=== PATIENT | female | born 1955 | race Caucasian/White ===

== ENCOUNTER → 2019-09-12 | Outpatient (CLI) | payer SELFPAY | END | disposition home or self-care (01) | LOC: LABSPEC 16:08 | PROVIDERS: PCP Family Medicine; Referring Provider Family Medicine; Visit Provider Family Medicine | DX: N39.0 Urinary tract infection, site not specified (principal) | CPT/HCPCS: 87077; 87086; 87088; 87186 ==

== ENCOUNTER → 2021-08-12 | Outpatient (CLI) | payer MEDICARE, OTHER, SELFPAY ==
[2021-08-12 17:38] LABS: Absolute Lymphocyte Count 2.01 X10^3/uL (0.83-4.51); Absolute Neutrophil Count 2.8 X10^3/uL (2.0-7.7); Basophil# 0.06 X10^3/uL; Basophil% 1.1 % (0-1); Eosinophil# 0.05 X10^3/uL; Eosinophils% 0.9 % (0-5); Hematocrit 40.3 % (37-47); Hemoglobin 12.9 g/dL (12.0-15.0); Lymphocyte # 2.01 X10^3/ul (0.83-4.51); Lymphocyte % 36.6 % (19-41); Mean Corpuscular Hgb 29.5 pg (27.0-32.0); Mean Platelet Vol. 10.5 fl (6.2-12.0); Monocyte# 0.58 X10^3/uL; Monocyte% 10.6 % (0-10); NRBC Flagged by Analyzer 0 % (0-5); Neutrophil # 2.78 X10^3/uL (2.7-7.7); Neutrophil % 50.6 % (47-70); Platelet Count 323 K/mm3 (150-450); RBC Distribution Width CV 12.3 % (11.6-14.6); RBC Distribution Width SD 42.3 fl (35.1-43.9); Red Blood Count 4.38 M/mm3 (4.2-5.4); White Blood Count 5.5 K/mm3 (4.4-11.0)
[2021-08-12 18:02] LABS: AST(SGOT) 20 U/L (15-37); Alanine Aminotransfer ALT/SGPT 24 U/L (13-56); Albumin, Serum 4.3 g/dL (3.2-5.0); Alkaline Phosphatase 54 U/L (45-117); Bilirubin, Direct 0.25 mg/dL (0.00-0.30); Globulin 3.2 g/dL (2.2-4.2); Protein, Total 7.5 g/dL (6.4-8.2); Rheumatoid Factor < 10.0 IU/mL (<15); T4 Free Direct 1.12 ng/dL (0.76-1.46); Thyroid Stim Hormone (TSH) 0.91 uIU/mL (0.358-3.74)
[2021-08-15 16:05] LABS: ANTINUCLEAR ANTIBODIES DIRECT Positive (Negative)
[2021-08-19 20:07] LABS: HLA B27 Negative (.)
[2021-08-22 13:07] LABS: Anti-Centromere B Ab <0.2 AI (0.0-0.9); Anti-Chromatin <0.2 AI (0.0-0.9); Anti-Jo <0.2 AI (0.0-0.9); Anti-Scleroderma-70 AB <0.2 AI (0.0-0.9); RNP Ab 6.5 AI (0.0-0.9); SJOGREN'S Anti-SS-A test < 0.2 AI (0.0-0.9); SJOGREN'S Anti-SS-B test < 0.2 AI (0.0-0.9); Smith Ab <0.2 AI (0.0-0.9)
[2021-08-22 15:25] LABS: Anti-dsDNA Ab <1 IU/mL (0-9)
== END | disposition home or self-care (01) ==
PROVIDERS: PCP Family Medicine; Referring Provider Family Medicine; Visit Provider Registered Nurse
DX: R79.82 Elevated C-reactive protein (CRP) (principal)
CPT/HCPCS: 36415; 80076; 81374; 84439; 84443; 85025; 86038; 86225; 86235; 86431

== ENCOUNTER → 2022-11-17 | Outpatient (CLI) | payer MEDICARE, OTHER, SELFPAY | END | disposition home or self-care (01) | LOC: LABSPEC 10:41 | PROVIDERS: PCP Family Medicine; Referring Provider Family Medicine; Visit Provider Family Medicine | DX: N39.0 Urinary tract infection, site not specified (principal) | CPT/HCPCS: 87086; 87088 ==

== ENCOUNTER → 2022-12-06 | Outpatient (CLI) | payer MEDICARE, OTHER, SELFPAY ==
--- NOTE | 2022-12-06 10:00 | RAD_ITS ---
STUDY: X-RAY - RIGHT FOOT CLINICAL: Female, 67 years old. Bilateral foot pain. TECHNIQUE: 3 view(s) of the foot. COMPARISON: None. FINDINGS: Osteopenia. Mild arthrosis of the tibiotalar joint. Mild arthrosis of the midfoot. Mild arthrosis of the TMT joints. Moderate arthrosis of the first TMT joint with osteophytes and bunion. Mild arthrosis of the IP joint of the first digit and the MTP and IP joints of the second through fifth digits with hammertoe deformities Normal soft tissues. RAD/Foot min 3 Views IMPRESSION: Osteopenia with osteoarthritic changes as described. No acute abnormality or erosive changes. Electronically Signed: Eugenio Arellano MD at 14:12 EDT ,
--- NOTE | 2022-12-06 10:05 | RAD_ITS ---
STUDY: X-RAY - LEFT FOOT CLINICAL: Female, 67 years old. Bilateral foot pain. TECHNIQUE: 3 view(s) of the foot. COMPARISON: None. FINDINGS: Osteopenia. Mild arthrosis of the tibiotalar joint. Mild arthrosis of the midfoot. Mild arthrosis of the TMT joints. Moderate arthrosis of the first TMT joint with osteophytes and bunion. Mild arthrosis of the IP joint of the first digit and the MTP and IP joints of the second through fifth digits with hammertoe deformities Normal soft tissues. RAD/Foot min 3 Views IMPRESSION: Osteopenia with osteoarthritic changes as described. No acute abnormality or erosive changes. Electronically Signed: Eugenio Arellano MD at 14:12 EDT ,
== END | disposition home or self-care (01) ==
PROVIDERS: PCP Family Medicine; Referring Provider Internal Medicine Rheumatology; Visit Provider Internal Medicine Rheumatology
DX: M79.671 Pain in right foot (principal); M79.672 Pain in left foot
CPT/HCPCS: 73630

== ENCOUNTER → 2023-08-24 | Outpatient (CLI) | payer MEDICARE, OTHER, SELFPAY ==
[2023-08-24 10:31] LABS: Absolute Lymphocyte Count 1.99 X10^3/uL (0.83-4.51); Absolute Neutrophil Count 2.2 X10^3/uL (2.0-7.7); Basophil# 0.05 X10^3/uL; Eosinophil# 0.16 X10^3/uL; Eosinophils% 3.2 % (0-5); Hematocrit 38.4 % (37-47); Hemoglobin 12.2 g/dL (12.0-15.0); Lymphocyte # 1.99 X10^3/ul (0.83-4.51); Lymphocyte % 40.1 % (19-41); Mean Corp Hgb Conc 31.8 g/dL (32-36); Mean Corpuscular Hgb 29.3 pg (27.0-32.0); Mean Corpuscular Volume 92.1 fL (81-99); Mean Platelet Vol. 9.9 fl (6.2-12.0); Monocyte# 0.53 X10^3/uL; Monocyte% 10.7 % (0-10); NRBC Flagged by Analyzer 0 % (0-5); Neutrophil # 2.23 X10^3/uL (2.7-7.7); Platelet Count 330 K/mm3 (150-450); RBC Distribution Width CV 12.4 % (11.6-14.6); Red Blood Count 4.17 M/mm3 (4.2-5.4)
[2023-08-24 11:26] LABS: ALB/GLOB Ratio 1.2 RATIO (0.9-2.4); AST(SGOT) 36 U/L (15-37); Alanine Aminotransfer ALT/SGPT 39 U/L (13-56); Albumin, Serum 3.8 g/dL (3.2-5.0); Alkaline Phosphatase 47 U/L (45-117); Anion Gap 3 (5-15); BUN 8 mg/dL (7-18); BUN/Creat Ratio 13.5 RATIO (10-20); Chloride 107 mmol/L (98-107); Creatinine, Serum 0.59 mg/dL (0.55-1.02); EST Glomerular Filtration Rate 108 mL/min (>60); Est Glom Filt Rate - Afr Amer 130 mL/min (>60); Globulin 3.1 g/dL (2.2-4.2); Glucose 97 mg/dL (74-106); Potassium 4.1 mmol/L (3.5-5.1); Protein, Total 6.9 g/dL (6.4-8.2); Sodium Level 140 mmol/L (136-145)
== END | disposition home or self-care (01) ==
LOC: MFPLAB 09:25
PROVIDERS: PCP Family Medicine; Visit Provider Family Medicine
DX: M19.049 Primary osteoarthritis, unspecified hand (principal); E78.5 Hyperlipidemia, unspecified
CPT/HCPCS: 36415; 80053; 84443; 85025

== ENCOUNTER → 2023-10-10 | Outpatient (CLI) | payer MEDICARE, OTHER, SELFPAY ==
--- NOTE | 2023-10-10 09:09 | BI_ITS ---
MAMMOGRAPHY - BILATERAL SCREENING REASON FOR EXAM: Female, 68 years old. Routine annual screening examination. PERTINENT HISTORY: Non-contributory. History of remote right breast needle biopsy. TECHNIQUE: Digital bilateral breast juan antonio (3D mammographic acquisition) in the CC and MLO projections. 2-D mediolateral oblique (MLO) and craniocaudad (CC) views of both breasts were obtained. CAD: Full Field Digital Mammography with Computer Added Detection was performed. COMPARISON: No comparison mammograms available at this time. If any prior films become available, an addendum to this report can be generated. FINDINGS: Breast Composition: The breasts are heterogeneously dense, which may obscure small masses. There is a 8.4 mm x 8.5 mm well-defined nodule in the deep upper lateral aspect of the right breast. A tissue clip marker is seen adjacent to the nodule. This most likely represents a small lymph node. No other significant abnormalities are identified. BI/SCRN MAMM (CAD)W/JUAN ANTONIO BILAT IMPRESSION: 8.5 mm x 8.4 mm well-defined nodule in the deep upper outer aspect of the right breast. A tissue clip marker is seen adjacent to it. ASSESSMENT CATEGORY: BIRADS Category 2: Benign. A letter regarding these results will be sent to the patient by the facility within 30 days. Approximately 10% of breast cancers are not detected by mammography. A normal mammogram should not delay biopsy of a clinically suspicious abnormality. [id number] Electronically Signed: Brock Hollingsworth MD at 11:33 EDT ,
--- NOTE | 2023-10-10 09:14 | BD_ITS ---
STUDY: DUAL ENERGY X-RAY ABSORPTIOMETRY / DXA REASON FOR EXAM: Female, 68 years old. [id number] TECHNIQUE: Bone Mineral Density (BMD) measurements of lumbar spine and bilateral hips were obtained. COMPARISON: None. FINDINGS: Lumbar Spine (L1-L4): g/cm2 (0.824) / T-score (-2.0) / Z-score (-0.1) Findings are suggestive of osteopenia with a moderate fracture risk. Left Femur Total: g/cm2 (0.765) / T-score (-1.4) / Z-score (-0.1) Left Femoral Neck: g/cm2 (0.580) / T-score (-2.4) / Z-score (-0.7) Right Femur Total: g/cm2 (0.767) / T-score (-1.4) / Z-score (0.0) Right Femoral Neck: g/cm2 (0.609) / T-score (-2.2) / Z-score (-0.5) BD/Dexa Bone Density Study IMPRESSION: The patient is considered osteopenic as outlined below according to World [employer] Organization (WHO) criteria with a high fracture risk. Reference Information: The T-score is the number of standard deviations above or below the standard which is normal for young adults at their peak bone mineral density. The World Health Organization (WHO) interprets the T-scores as follows: Above -1 Normal bone density Between -1 and -2.5 Osteopenia Equal to / or below -2.5 Osteoporosis As a practical clinical guideline, osteopenia may be graded as follows: Mild -1 through -1.5 Moderate -1.6 through -2.0 Severe -2.1 through -2.4 The Z-score is the number of standard deviations above or below age-matched controls. A Z-score of less than -1.5 would be considered abnormal. References: 1. NIH Osteoporosis and Related Bone Diseases www osteo.org 2. International Society for Clinical Densitometry www iscd.org 3. National Osteoporosis Foundation www nof.org Electronically Signed: Brock Hollingsworth MD at 9:30 EDT ,
== END | disposition home or self-care (01) ==
LOC: OPBD 09:07
PROVIDERS: PCP Family Medicine; Referring Provider Family Medicine; Visit Provider Family Medicine
DX: Z12.31 Encounter for screening mammogram for malignant neoplasm of breast (principal); N95.9 Unspecified menopausal and perimenopausal disorder
CPT/HCPCS: 77063; 77067; 77080

== ENCOUNTER → 2023-12-07 | Outpatient (CLI) | payer MEDICARE, OTHER, SELFPAY ==
[2023-12-12 15:09] LABS: HPV APTIMA, High Risk Negative (Negative)
[2023-12-12 15:52] LABS: HPV Reflexed? YES, CHARGE PATIENT
== END | disposition home or self-care (01) ==
PROVIDERS: PCP Family Medicine; Referring Provider Registered Nurse; Visit Provider Registered Nurse
DX: Z01.419 Encounter for gynecological examination (general) (routine) without abnormal findings (principal)
CPT/HCPCS: 87624; 88175; G0145

== ENCOUNTER → 2024-03-20 | Outpatient (CLI) | payer MEDICARE, OTHER, SELFPAY ==
[2024-03-20 12:06] LABS: Absolute Lymphocyte Count 1.89 X10^3/uL (0.83-4.51); Absolute Neutrophil Count 2.2 X10^3/uL (2.0-7.7); Basophil# 0.07 X10^3/uL; Basophil% 1.4 % (0-1); Eosinophil# 0.11 X10^3/uL; Eosinophils% 2.2 % (0-5); Hematocrit 38.4 % (37-47); Hemoglobin 12.7 g/dL (12.0-15.0); Lymphocyte # 1.89 X10^3/ul (0.83-4.51); Lymphocyte % 38.6 % (19-41); Mean Corp Hgb Conc 33.1 g/dL (32-36); Mean Corpuscular Hgb 30.2 pg (27.0-32.0); Mean Corpuscular Volume 91.2 fL (81-99); Monocyte% 12.2 % (0-10); NRBC Flagged by Analyzer 0 % (0-5); Neutrophil # 2.22 X10^3/uL (2.7-7.7); Neutrophil % 45.4 % (47-70); Platelet Count 320 K/mm3 (150-450); RBC Distribution Width CV 12.5 % (11.6-14.6); RBC Distribution Width SD 41.6 fl (35.1-43.9); Red Blood Count 4.21 M/mm3 (4.2-5.4); White Blood Count 4.9 K/mm3 (4.4-11.0)
[2024-03-20 13:00] LABS: ALB/GLOB Ratio 1.3 RATIO (0.9-2.4); AST(SGOT) 27 U/L (15-37); Alanine Aminotransfer ALT/SGPT 35 U/L (13-56); Albumin, Serum 3.8 g/dL (3.2-5.0); Alkaline Phosphatase 45 U/L (45-117); Anion Gap 8 (5-15); BUN 11 mg/dL (7-18); BUN/Creat Ratio 18.4 RATIO (10-20); Calcium,Total 9.1 mg/dL (8.5-10.1); Chloride 107 mmol/L (98-107); EST Glomerular Filtration Rate 106 mL/min (>60); Est Glom Filt Rate - Afr Amer 128 mL/min (>60); Globulin 2.9 g/dL (2.2-4.2); Glucose 90 mg/dL (74-106); Potassium 3.7 mmol/L (3.5-5.1); Protein, Total 6.7 g/dL (6.4-8.2); Sodium Level 141 mmol/L (136-145)
[2024-03-21 15:09] LABS: PROEL- A/G Ratio 1.5 (0.7-1.7); PROEL- Alpha-1 Globulin 0.2 g/dL (0.0-0.4); PROEL- Alpha-2 Globulin 0.7 g/dL (0.4-1.0); PROEL- Gamma Globulin 0.8 g/dL (0.4-1.8); PROEL- Globulin, Total 2.6 g/dL (2.2-3.9); PROEL- TOTAL PROTEIN 6.6 g/dL (6.0-8.5); PROEL-M-Spike Not Observed g/dL (Not Observed)
== END | disposition home or self-care (01) ==
LOC: MFPLAB 10:05
PROVIDERS: PCP Family Medicine
DX: M81.0 Age-related osteoporosis without current pathological fracture (principal)
CPT/HCPCS: 36415; 80053; 84165; 84443; 85025

== ENCOUNTER → 2024-10-31 | Outpatient (CLI) | payer MEDICARE, OTHER, SELFPAY ==
[2024-10-31 15:20] LABS: Hematocrit 39.2 % (37-47); Hemoglobin 12.9 g/dL (12.0-15.0); Immature Granulocytes Count 0.010 X10^3/uL (0.0-0.0); Mean Corp Hgb Conc 32.9 g/dL (32-36); Mean Corpuscular Volume 89.5 fL (81-99); Mean Platelet Vol. 9.9 fl (6.2-12.0); NRBC Flagged by Analyzer 0 % (0-5); Platelet Count 346 K/mm3 (150-450); RBC Distribution Width CV 12.6 % (11.6-14.6); RBC Distribution Width SD 41.4 fl (35.1-43.9); Red Blood Count 4.38 M/mm3 (4.2-5.4); White Blood Count 4.5 K/mm3 (4.4-11.0)
--- OUTSIDE RECORDS SUMMARY | 2024-10-31 15:40 | XMS RPT_ITS | CCD ---
Author Organization [facility] CliniSynh Care Team Providers Care Production Team Leader Name Role Phone Granados, Kieran Primary Care Unavailable Darrick Hale Attending Unavailable Granados VSC, Kieran Referring Unavailable Granados, Kieran Primary Care Unavailable [place] CALL CENTER SUPERVISOR, Chas Attending Unavailable Milton ONEIL, Miley Attending Unavailable Miley Horne Referring Unavailable Granados, Kieran Primary Care Unavailable Granados, Kieran Referring Unavailable Granados, Kieran Primary Care Unavailable Granados, Kieran Attending Unavailable Granados, Kieran Attending Unavailable Granados, Kieran Primary Care Unavailable Granados, Kieran Primary Care Unavailable Granados, Kieran Referring Unavailable Granados, Kieran Attending Unavailable Problems Active Problems Problem Classification Problem Date Documented Da te Episodic/Chronic Disorders of lipid metabolism (1 source) Hyperlipidemia, unspecified; Translations: [Hyperlipidemia, unspecified] Onset: 07-23-2024 Chronic Glaucoma (2 sources) Unspecified glaucoma; Translations: [Unspecified glaucoma] Onset: 09-29-2022 Chronic Osteoarthritis (1 source) Primary osteoarthritis, unspecified hand; Translations: [Primary osteoarthritis, unspecified hand] Onset: 09-03-2023 Chronic Osteoporosis (2 sources) Age-related osteoporosis without current pathological fracture; Translations: [Age-related osteoporosis without current pathological fracture] Onset: 07-23-2024 Chronic Past or Other Problems Problem Classification Problem Date Documented Da te Episodic/Chronic Other screening for suspected conditions (not mental disorders or infectious disease) (1 source) Encounter for screening mammogram for malignant neoplasm of breast; Translations: [Encounter for screening mammogram for malignant neoplasm of breast] Onset: 10-22-2023 Episodic Results Test Name Value Interpretation Reference Range Facility Coronary Angiography CTon Coronary Angiography [facility] Imaging Services [address] [place] [address] 07/23/24 1647 MR#: [id number] Acct: [id number] Name: MANDY ADHIKARI Rep #: [id number] : 1955 68 From: Darrick Hale MD PCP: Dr. Kieran Granados MD Status:REG REF Y Location: CT Calcium Scoring Date of Study:: 07/23/24 Indications Indications: FH Coronary Calcium Scoring: High-resolution Computed Tomographic imaging of the chest was performed on [07/23/24 ], with particular attention paid to the coronary arteries. Images from the examination were analyzed for the presence and extent of coronary artery calcification , using coronary calcium quantification software. The patient tolerated the procedure well and there were no complications. The results of the coronary calcification analysis are provided below. Findings Coronary Artery Left Main (LM): 0 Left Anterior Descending (LAD): 0 Left Circumflex (LCX): 0 Right Coronary Artery (RCA): 0 Total Agatston Score: 0 Percentile Rankin Calcium Scoring Interpretation: Different methods to categorize the overall amount of coronary plaque. Overall amount CAC SIS Visual of coronary plaque P1 Mild -100 <2 1-2 vessels with mild amount of plaque P2 Moderate 101-300 3-4 1-2 vessels with moderate amount, 3 vessels with mild amount of plaque P3 Severe 301-999 5-7 3 vessels with moderate amount, 1 vessel with severe amount of plaque P4 Extensive >1000 >8 2-3 vessels with severe amount of plaque Conclusion: No atherosclerotic plaque noted 07/23/24 1648 Date Darrick Hale MD Cosigner Signature (if applicable): Date CC: Dr. Darrick Hale MD; Dr. Kieran Granados MD; Kieran Granados MD Signed Normal [facility] Limited Chest CT Cardiac Onl [facility] 07-23-[address] Cardiac Only [facility] Imaging Services [address] [place] [address] Cardiac Only MR#: [id number] Acct: [id number] Name: MANDY ADHIKARI Rep #: [id number] : 1955 F 68 From: Kieran Sanders MD PCP: Dr. Kieran Granados MD Status: REG REF Study: Limited Chest CT Cardiac Only Date of Exam: Exam# [id number] Ordering Dr: Kieran Granados MD PROCEDURE: LIMITED CHEST CT NON-CARDIAC ONLY REASON FOR EXAM: HYPERLIPIDEMIA TECHNIQUE: Chest CT without contrast, high resolution CT (HRCT) protocol. Coronal and Sagittal reconstruction series were provided. Only the extracardiac anatomy is evaluated on this study. One or more dose reduction techniques were used (e.g., Automated exposure control, adjustment of the mA and/or kV according to patient size, use of iterative reconstruction technique). COMPARISON: No relevant prior. FINDINGS: Lymph nodes: Unremarkable Lungs and Airways: No nodules or masses. Mediastinum and frank: No widening. No hilar adenopathy. Pleura: No effusions, thickening, or pneumothorax. Upper Abdomen: Unremarkable. Bones: Mild multilevel spondylosis. Soft tissues: Possible soft tissue nodule in the right breast, axial image 33 measuring 1.3 cm. Soft tissue nodule in the right breast, axial image 11 measuring 0.8 cm. Calcifications are also noted in the right breast. CT/Limited Chest CT Cardiac Only IMPRESSION: Nodules in the right breast as detailed above. Consider mammography for further evaluation. No other suspicious findings. Reading Location: [place] [address] CC: Dr. Kieran Granados MD Lace Burn Out Tender: Signed Normal [facility] Protein Electroph, Son 03-21 Albumin [Mass/Vol] 4.0 g/dL Normal 2.9-4.4 [facility] Comment on above: Order Comment: Order Date: 03/20/24 Order Info: 0060-1 - PROEL Performed By: #### L 3100.3450 #### [facility] [address] [place], [place], [address] Albumin/Globulin [Mass ratio] 1.5 {ratio} Normal 0.7-1.7 [facility] Comment on above: Order Comment: Order Date: 03/20/24 Order Info: 0060-1 - PROEL Performed By: #### L 3100.3450 #### [facility] [address] [place], [address] ALPHA-1 GLOBUL 0.2 g/dL Normal 0.0-0.4 [facility] Comment on above: Order Comment: Order Date: 03/20/24 Order Info: 0060-1 - PROEL Performed By: #### L 3100.3450 #### [facility] [address] [place], [address] ALPHA-2 GLOBUL 0.7 g/dL Normal 0.4-1.0 [facility] Comment on above: Order Comment: Order Date: 03/20/24 Order Info: 0060-1 - PROEL Performed By: #### L 3100.3450 #### [facility] [address] [place], [address] BETA GLOBULIN 1.0 g/dL Normal 0.7-1.3 [facility] Comment on above: Order Comment: Order Date: 03/20/24 Order Info: 0060-1 - PROEL Performed By: #### L 3100.3450 #### [facility] [address] [place], [address] GAMMA GLOBULIN 0.8 g/dL Normal 0.4-1.8 [facility] Comment on above: Order Comment: Order Date: 03/20/24 Order Info: 0060-1 - PROEL Performed By: #### L 3100.3450 #### [facility] [address] [place], [address] Globulin (S) [Mass/Vol] 2.6 g/dL Normal 2.2-3.9 [facility] Comment on above: Order Comment: Order Date: 03/20/24 Order Info: 0060-1 - PROEL Performed By: #### L 3100.3450 #### [facility] [address] [place], [place], [address] INTERPRETATION Comment Normal . [facility] Comment on above: Order Comment: Order Date: 03/20/24 Order Info: 0060-1 - PROEL Result Comment: Prot ein electrophoresis scan will follow via computer, mail, or sfdc technical architect delivery. Performed By: #### L 1610.3450 #### [facility] [address] [place], [place], [address] M-SPIKE Not Observed Normal Not Observed [facility] Comment on above: Order Comment: Order Date: 03/20/24 Order Info: 0060-1 - PROEL Performed By: #### L 5160.3450 #### [facility] [address] [place], [place], [address] NOTE: Comment Normal . [facility] Comment on above: Order Comment: Order Date: 03/20/24 Order Info: 0060-1 - PROEL Result Comment: The SPE pattern appears unremarkable. Evidence of monoclonal protein is not apparent. Performed at: [address] [id number] House Builder: Teddy Duong PhD, Phone: [phone] Performed By: #### L 1897.7977 #### [facility] [address] [place], [place], [address] Protein [Mass/Vol] 6.6 g/dL Normal 6.0-8.5 [facility] Comment on above: Order Comment: Order Date: 03/20/24 Order Info: 0060-1 - PROEL Performed By: #### L 4444.1240 #### [facility] [address] [place], [place], [address] CBC W/Diff, Automatedon 12-0 -2023 Absolute Lymph 1.89 X10 3/uL Normal 0.83-4.51 [facility] Comment on above: Order Comment: Order Date: 03/20/24 Order Info: 0184-1 - CBCD Performed By: #### L 100.0100 #### [facility] [address] [place], [address] Absolute Neut 2.2 X10 3/uL Normal 2.0-7.7 [facility] Comment on above: Order Comment: Order Date: 03/20/24 Order Info: 0184-1 - CBCD Performed By: #### L 100.0100 #### [facility] [address] [place], [address] Basophils/100 WBC (Bld) 1.4 % High 0-1 [facility] Comment on above: Order Comment: Order Date: 03/20/24 Order Info: 0184-1 - CBCD Performed By: #### L 100.0100 #### [facility] [address] [place], [address] Eosinophils/100 WBC (Bld) 2.2 % Normal 0-5 [facility] Comment on above: Order Comment: Order Date: 03/20/24 Order Info: 0184-1 - CBCD Performed By: #### L 100.0100 #### [facility] [address] [place], [address] Erythrocyte distribution width (RBC) [Ratio] 12.5 % Normal 11.6-14.6 [facility] Comment on above: Order Comment: Order Date: 03/20/24 Order Info: 0184-1 - CBCD Performed By: #### L 100.0100 #### [facility] [address] [place], [address] Hematocrit (Bld) [Volume fraction] 38.4 % Normal 37-47 [facility] Comment on above: Order Comment: Order Date: 03/20/24 Order Info: 0184-1 - CBCD Performed By: #### L 100.0100 #### [facility] [address] [place], [address] Hemoglobin (Bld) [Mass/Vol] 12.7 g/dL Normal 12.0-15.0 [facility] Comment on above: Order Comment: Order Date: 03/20/24 Order Info: 0184-1 - CBCD Performed By: #### L 100.0100 #### [facility] [address] [place], [address] IG% 0.200 Normal 0.0-0.9 [facility] Comment on above: Order Comment: Order Date: 03/20/24 Order Info: 0184- - CBCD Result Comment: IG% - Immature Granulocytes (promyelocytes, myelocytes and metamyelocytes) > 1% indicates that a LEFT SHIFT is Present. Performed By: #### L 100.0100 #### [facility] [address] [place], [address] Lymphocytes/100 WBC (Bld) 38.6 % Normal 19-41 [facility] Comment on above: Order Comment: Order Date: 03/20/24 Order Info: 0184- - CBCD Performed By: #### L 100.0100 #### [facility] [address] [place], [address] MCH (RBC) [Entitic mass] 30.2 pg Normal 27.0-32.0 [facility] Comment on above: Order Comment: Order Date: 03/20/24 Order Info: 0184- - CBCD Performed By: #### L 100.0100 #### [facility] [address] [place], [address] MCHC (RBC) [Mass/Vol] 33.1 g/dL Normal 32-36 [facility] Comment on above: Order Comment: Order Date: 03/20/24 Order Info: 0184-1 - CBCD Performed By: #### L 100.0100 #### [facility] [address] [place], [address] MCV (RBC) [Entitic vol] 91.2 fL Normal 81-99 [facility] Comment on above: Order Comment: Order Date: 03/20/24 Order Info: 0184-1 - CBCD Performed By: #### L 100.0100 #### [facility] [address] [place], [address] Monocytes/100 WBC (Bld) 12.2 % High 0-10 [facility] Comment on above: Order Comment: Order Date: 03/20/24 Order Info: 0184-1 - CBCD Performed By: #### L 100.0100 #### [facility] [address] [place], [address] Neutrophils/100 WBC (Bld) 45.4 % Low 47-70 [facility] Comment on above: Order Comment: Order Date: 03/20/24 Order Info: 0184-1 - CBCD Performed By: #### L 100.0100 #### [facility] [address] [place], [address] Nucleated RBC (Bld) [#/Vol] 0 10*3/uL Normal 0-5 [facility] Comment on above: Order Comment: Order Date: 03/20/24 Order Info: 0184-1 - CBCD Performed By: #### L 100.0100 #### [facility] [address] [place], [address] Platelet mean volume (Bld) [Entitic vol] 10.0 fL Normal 6.2-12.0 [facility] Comment on above: Order Comment: Order Date: 03/20/24 Order Info: 0184-1 - CBCD Performed By: #### L 100.0100 #### [facility] [address] [place], [address] Platelets (Bld) [#/Vol] 320 10*3/uL Normal 150-450 [facility] Comment on above: Order Comment: Order Date: 03/20/24 Order Info: 0184-1 - CBCD Performed By: #### L 100.0100 #### [facility] [address] [place], [address] RBC (Bld) [#/Vol] 4.21 10*6/uL Normal 4.2-5.4 [facility] Comment on above: Order Comment: Order Date: 03/20/24 Order Info: 0184- - CBCD Performed By: #### L 100.0100 #### [facility] [address] [place], [address] RDW SD 41.6 fl Normal 35.1-43.9 [facility] Comment on above: Order Comment: Order Date: 03/20/24 Order Info: 018- - CBCD Performed By: #### L 100.0100 #### [facility] [address] [place], [address] WBC (Bld) [#/Vol] 4.9 10*3/uL Normal 4.4-11.0 [facility] Comment on above: Order Comment: Order Date: 03/20/24 Order Info: 0184 - CBCD Performed By: #### L 100.0100 #### [facility] [address] [place], [address] Comprehensive Metabolic Prof ilon 03-20-2024 Albumin [Mass/Vol] 3.8 g/dL Normal 3.2-5.0 [facility] Comment on above: Order Comment: Order Date: 03/20/24 Order Info: 0786-1 - CMP Order Info: 3016-3 - TSH Performed By: #### L 500.4050 #### [facility] [address] [place], [address] Albumin/Globulin [Mass ratio] 1.3 {ratio} Normal 0.9-2.4 [facility] Comment on above: Order Comment: Order Date: 03/20/24 Order Info: 0786-1 - CMP Order Info: 3016-3 - TSH Performed By: #### L 500.4050 #### [facility] [address] [place], [address] ALK P 45 U/L Normal 45-117 [facility] Comment on above: Order Comment: Order Date: 03/20/24 Order Info: 0786-1 - CMP Order Info: 3015-3 - TSH Performed By: #### L 500.4050 #### [facility] [address] [place], [address] ALT [Catalytic activity/Vol] 35 U/L Normal 13-56 [facility] Comment on above: Order Comment: Order Date: 03/20/24 Order Info: 0786-1 - CMP Order Info: 3015-3 - TSH Performed By: #### L 500.4050 #### [facility] [address] [place], [address] AST [Catalytic activity/Vol] 27 U/L Normal 15-37 [facility] Comment on above: Order Comment: Order Date: 03/20/24 Order Info: 07-1 - CMP Order Info: 3015-3 - TSH Performed By: #### L 500.4050 #### [facility] [address] [place], [address] Bilirubin [Mass/Vol] 1.70 mg/dL High 0.20-1.00 [facility] Comment on above: Order Comment: Order Date: 03/20/24 Order Info: 0786-1 - CMP Order Info: 301-3 - TSH Result Comment: For patients on eltrombopag therapy, use of Dimension Dolliver TBIL is not recommended. Performed By: #### L 500.4050 #### [facility] [address] [place], [address] BUN/CRE 18.4 RATIO Normal 10-20 [facility] Comment on above: Order Comment: Order Date: 03/20/24 Order Info: 0786-1 - CMP Order Info: 3016-3 - TSH Performed By: #### L 500.4050 #### [facility] [address] [place], [address] CA,Total 9.1 mg/dL Normal 8.5-10.1 [facility] Comment on above: Order Comment: Order Date: 03/20/24 Order Info: 0786- - CMP Order Info: 3015-06 - TSH Performed By: #### L 500.4050 #### [facility] [address] [place], [place], [address] [phone] Chloride [Moles/Vol] 107 mmol/L Normal 98-107 [facility] Comment on above: Order Comment: Order Date: 03/20/24 Order Info: 785-1 - CMP Order Info: 3015-06 - TSH Performed By: #### L 500.4050 #### [facility] [address] [place], [address] CO2 [Moles/Vol] 26.0 mmol/L Normal 21.0-32.0 [facility] Comment on above: Order Comment: Order Date: 03/20/24 Order Info: 785- - [facility] Order Info: 3015-06 - TSH Performed By: #### L 500.4050 #### [facility] [address] [place], [address] Creatinine [Mass/Vol] 0.60 mg/dL Normal 0.55-1.02 [facility] Comment on above: Order Comment: Order Date: 03/20/24 Order Info: 07- - CMP Order Info: 3015-06 - TSH Result Comment: The validity of the calculated GFR GFRAA in patients over 70 years has not been determined. Clinical correlation is essential. Performed By: #### L 500.4050 #### [facility] [address] [place], [address] EST GFR - AA 128 mL/min Normal >60 [facility] Comment on above: Order Comment: Order Date: 03/20/24 Order Info: 0786-1 - CMP Order Info: 3 - TSH Result Comment: Afri can Swiss GFR Calc Performed By: #### L 500.4050 #### [facility] [address] [place], [address] GAP 8 Normal 5-15 [facility] Comment on above: Order Comment: Order Date: 03/20/24 Order Info: 0786- - CMP Order Info: 3 - TSH Performed By: #### L 500.4050 #### [facility] [address] [place], [address] GFR/1.73 sq M.predicted among non-blacks MDRD (S/P/Bld) [Vol rate/Area] 106 mL/min/{1.73_m2} Normal >60 [facility] Comment on above: Order Comment: Order Date: 03/20/24 Order Info: 0786 - CMP Order Info: 3 - TSH Result Comment: Non- GFR Calc Performed By: #### L 500.4050 #### [facility] [address] [place], [address] Globulin (S) [Mass/Vol] 2.9 g/dL Normal 2.2-4.2 [facility] Comment on above: Order Comment: Order Date: 03/20/24 Order Info: 0786 - CMP Order Info: 3015-06 - TSH Performed By: #### L 500.4050 #### [facility] [address] [place], [address] Glucose [Mass/Vol] 90 mg/dL Normal 74-106 [facility] Comment on above: Order Comment: Order Date: 03/20/24 Order Info: 0786- - CMP Order Info: 3 - TSH Performed By: #### L 500.4050 #### [facility] [address] [place], [address] Potassium [Moles/Vol] 3.7 mmol/L Normal 3.5-5.1 [facility] Comment on above: Order Comment: Order Date: 03/20/24 Order Info: 0786-1 - CMP Order Info: 3015-3 - TSH Performed By: #### L 500.4050 #### [facility] [address] [place], [address] Sodium [Moles/Vol] 141 mmol/L Normal 136-145 [facility] Comment on above: Order Comment: Order Date: 03/20/24 Order Info: 0786-1 - [facility] Order Info: 3 - TSH Performed By: #### L 500.4050 #### [facility] [address] [place], [address] T PROT 6.7 g/dL Normal 6.4-8.2 [facility] Comment on above: Order Comment: Order Date: 03/20/24 Order Info: 0786- - [facility] Order Info: 3 - TSH Performed By: #### L 500.4050 #### [facility] [address] [place], [address] Urea nitrogen [Mass/Vol] 11 mg/dL Normal 7-18 [facility] Comment on above: Order Comment: Order Date: 03/20/24 Order Info: 0786 - [facility] Order Info: 3 - TSH Performed By: #### L 500.4050 #### [facility] [address] [place], [address] Thyroid Stim Hormone (TSH)on 03-20-2024 TSH 1.010 uIU/mL Normal 0.358-3.740 [facility] Comment on above: Order Comment: Order Date: 03/20/24 Order Info: 0786-1 - CMP Order Info: 3015-3 - TSH Performed By: #### L 501.9520 #### [facility] [address] [place], [address] PAP IG HPV HR APTIMAon 12-11 ADEQ Comment Normal . [facility] Comment on above: Order Comment: Speci men Comment: [id number] Specimen Comment: Source.............Vagina Specimen Comment: No. of containers..01 ThinPrep Vial Result Comment: Sati sfactory for evaluation. Endocervical component may not be distinguished in cases of atrophy. Performed By: #### L 7400.0377 #### [facility] [address] [place], [place], [address] COMM . Normal . [facility] Comment on above: Order Comment: Speci men Comment: [id number] Specimen Comment: Source.............Vagina Specimen Comment: No. of containers..01 ThinPrep Vial Performed By: #### L 7400.0377 #### [facility] [address] [place], [place], [address] COMMENT Comment Normal . [facility] Comment on above: Order Comment: Speci men Comment: [id number] Specimen Comment: Source.............Vagina Specimen Comment: No. of containers..01 ThinPrep Vial Result Comment: This liquid based ThinPrep(R) pap test was screened with the use of an image guided system. Performed By: #### L 7400.0377 #### [facility] [address] [place], [place], [address] DIAG Comment Normal . [facility] Comment on above: Order Comment: Speci men Comment: [id number] Specimen Comment: Source.............Vagina Specimen Comment: No. of containers..01 ThinPrep Vial Result Comment: NEGA TIVE FOR INTRAEPITHELIAL LESION OR MALIGNANCY. CELLULAR CHANGES ASSOCIATED WITH ATROPHY ARE PRESENT. Performed By: #### L 7400.0377 #### [facility] [address] [place], [place], [address] HPV APTIMA, HR Negative Normal Negative [facility] Comment on above: Order Comment: Speci men Comment: [id number] Specimen Comment: Source.............Vagina Specimen Comment: No. of containers..01 ThinPrep Vial Result Comment: This nucleic acid amplification test detects fourteen high- risk HPV types (16,18,31,33,35,39,45,51,52,56,58,59,66,68) without differentiation. Performed at: [address] [id number] House Builder: Jannie Krueger MD, Phone: [phone] Performed at: =[address] [id number] House Builder: Jannie Krueger MD, Phone: [phone] Performed By: #### L 7400.0377 #### [facility] [address] [place], [place], [address] PAPSMR Comment Normal . [facility] Comment on above: Order Comment: Speci men Comment: [id number] Specimen Comment: Source.............Vagina Specimen Comment: No. of containers..01 ThinPrep Vial Result Comment: The Pap smear is a screening test designed to aid in the detection of premalignant and malignant conditions of the uterine cervix. It is not a diagnostic procedure and should not be used as the sole means of detecting cervical cancer. Both false-positive and false-negative reports do occur. Performed By: #### L 7400.0377 #### [facility] [address] [place], [place], [address] PERFORM Comment Normal . [facility] Comment on above: Order Comment: Speci men Comment: [id number] Specimen Comment: Source.............Vagina Specimen Comment: No. of containers..01 ThinPrep Vial Result Comment: Jennifer Barlow Planishing Hammer Operator (ASCP) Performed By: #### L 7400.0377 #### [facility] [address] [place], [place], [address] Dexa Bone Density Studyon Dexa Bone Density Study [facility] Imaging Services [address] [place] [address] Dexa Bone Density Study MR#: [id number] Acct: [id number] Name: MANDY ADHIKARI Rep #: [id number] : 1955 F 68 From: Brock winter MD PCP: Dr. Kieran Granados MD Status: [facility] Study: Dexa Bone Density Study Date of Exam: 10/10/23 Exam# [id number] Ordering Dr: Kieran Granados MD [id number] STUDY: DUAL ENERGY X-RAY ABSORPTIOMETRY / DXA REASON FOR EXAM: Female, 68 years old. [id number] TECHNIQUE: Bone Mineral Density (BMD) measurements of lumbar spine and bilateral hips were obtained. COMPARISON: None. FINDINGS: Lumbar Spine (L1-L4): g/cm2 (0.824) / T-score (-2.0) / Z-score (-0.1) Findings are suggestive of osteopenia with a moderate fracture risk. Left Femur Total: g/cm2 (0.765) / T-score (-1.4) / Z-score (-0.1) Left Femoral Neck: g/cm2 (0.580) / T-score (-2.4) / Z-score (-0.7) Right Femur Total: g/cm2 (0.767) / T-score (-1.4) / Z-score (0.0) Right Femoral Neck: g/cm2 (0.609) / T-score (-2.2) / Z-score (-0.5) BD/Dexa Bone Density Study IMPRESSION: The patient is considered osteopenic as outlined below according to World Plac[employer] Organization (WHO) criteria with a high fracture risk. Reference Information: The T-score is the number of standard deviations above or below the standard which is normal for young adults at their peak bone mineral density. The World Health Organization (WHO) interprets the T-scores as follows: Above -1 Normal bone density Between -1 and -2.5 Osteopenia Equal to / or below -2.5 Osteoporosis As a practical clinical guideline, osteopenia may be graded as follows: Mild -1 through -1.5 Moderate -1.6 through -2.0 Severe -2.1 through -2.4 The Z-score is the number of standard deviations above or below age-matched controls. A Z-score of less than -1.5 would be considered abnormal. References: 1. NIH Osteoporosis and Related Bone Diseases www osteo.org 2. International Society for Clinical Densitometry www iscd.org 3. National Osteoporosis Foundation www nof.org Electronically Signed: Brock Hollingsworth MD at 9:30 EDT Reading Location ID and State: [facility] / [place] , Service support , CC: Dr. Kieran Granados MD Lace Burn Out Tender: Signed Normal [facility] SCRN MAMM (CAD)W/JUAN ANTONIO BILATo n 10-10-2023 SCRN MAMM (CAD)W/JUAN ANTONIO BILAT [facility] Imaging Services [address] [place] [address] SCRN MAMM (CAD)W/JUAN ANTONIO BILAT MR#: [id number] Acct: [id number] Name: MANDY ADHIKARI Rep #: [id number] : [id number] F 68 From: Brock winter MD PCP: Dr. Kieran Granados MD Status: [facility] Study: SCRN MAMM (CAD)W/JUAN ANTONIO BILAT Date of Exam: 09/15 10/07 Exam# [id number] Ordering Dr: Kieran Granados MD [id number] MAMMOGRAPHY - BILATERAL SCREENING REASON FOR EXAM: Female, 68 years old. Routine annual screening examination. PERTINENT HISTORY: Non-contributory. History of remote right breast needle biopsy. TECHNIQUE: Digital bilateral breast juan antonio (3D mammographic acquisition) in the CC and MLO projections. 2-D mediolateral oblique (MLO) and craniocaudad (CC) views of both breasts were obtained. CAD: Full Field Digital Mammography with Computer Added Detection was performed. COMPARISON: No comparison mammograms available at this time. If any prior films become available, an addendum to this report can be generated. FINDINGS: Breast Composition: The breasts are heterogeneously dense, which may obscure small masses. There is a 8.4 mm x 8.5 mm well-defined nodule in the deep upper lateral aspect of the right breast. A tissue clip marker is seen adjacent to the nodule. This most likely represents a small lymph node. No other significant abnormalities are identified. BI/SCRN MAMM (CAD)W/JUAN ANTONIO BILAT IMPRESSION: 8.5 mm x 8.4 mm well-defined nodule in the deep upper outer aspect of the right breast. A tissue clip marker is seen adjacent to it. ASSESSMENT CATEGORY: BIRADS Category 2: Benign. A letter regarding these results will be sent to the patient by the facility within 30 days. Approximately 10% of breast cancers are not detected by mammography. A normal mammogram should not delay biopsy of a clinically suspicious abnormality. [id number] Electronically Signed: Brock Hollingsworth MD at 11:33 EDT , CC: Dr. Kieran Granados MD Lace Burn Out Tender: Signed Normal [facility] CBC W/Diff, Automatedon 08-14 Absolute Lymph 1.99 X10 3/uL Normal 0.83-4.51 [facility] Comment on above: Order Comment: Order Date: 08/24/23 Order Info: 0184-1 - CBCD Performed By: #### L 100.0100, L501.9520, L500.4050 #### [facility] [address] [place], [address] Absolute Neut 2.2 X10 3/uL Normal 2.0-7.7 [facility] Comment on above: Order Comment: Order Date: 08/24/23 Order Info: 0184-1 - CBCD Performed By: #### L 100.0100, L501.9520, L500.4050 #### [facility] [address] [place], [address] Basophils/100 WBC (Bld) 1.0 % Normal 0-1 [facility] Comment on above: Order Comment: Order Date: 08/24/23 Order Info: 0184-1 - CBCD Performed By: #### L 100.0100, L501.9520, L500.4050 #### [facility] [address] [place], [address] Eosinophils/100 WBC (Bld) 3.2 % Normal 0-5 [facility] Comment on above: Order Comment: Order Date: 08/24/23 Order Info: 0184-1 - CBCD Performed By: #### L 100.0100, L501.9520, L500.4050 #### [facility] [address] [place], [address] Erythrocyte distribution width (RBC) [Ratio] 12.4 % Normal 11.6-14.6 [facility] Comment on above: Order Comment: Order Date: 08/24/23 Order Info: 0184-1 - CBCD Performed By: #### L 100.0100, L501.9520, L500.4050 #### [facility] [address] [place], [address] Hematocrit (Bld) [Volume fraction] 38.4 % Normal 37-47 [facility] Comment on above: Order Comment: Order Date: 08/24/23 Order Info: 018- - CBCD Performed By: #### L 100.0100, L501.9520, L500.4050 #### [facility] [address] [place], [address] Hemoglobin (Bld) [Mass/Vol] 12.2 g/dL Normal 12.0-15.0 [facility] Comment on above: Order Comment: Order Date: 08/24/23 Order Info: 018- - CBCD Performed By: #### L 100.0100, L501.9520, L500.4050 #### [facility] [address] [place], [address] IG% 0.000 Normal 0.0-0.9 [facility] Comment on above: Order Comment: Order Date: 08/24/23 Order Info: 018- - CBCD Result Comment: IG% - Immature Granulocytes (promyelocytes, myelocytes and metamyelocytes) > 1% indicates that a LEFT SHIFT is Present. Performed By: #### L 100.0100, L501.9520, L500.4050 #### [facility] [address] [place], [address] Lymphocytes/100 WBC (Bld) 40.1 % Normal 19-41 [facility] Comment on above: Order Comment: Order Date: 08/24/23 Order Info: 0184- - CBCD Performed By: #### L 100.0100, L501.9520, L500.4050 #### [facility] [address] [place], [address] MCH (RBC) [Entitic mass] 29.3 pg Normal 27.0-32.0 [facility] Comment on above: Order Comment: Order Date: 08/24/23 Order Info: 018- - CBCD Performed By: #### L 100.0100, L501.9520, L500.4050 #### [facility] [address] [place], [address] MCHC (RBC) [Mass/Vol] 31.8 g/dL Low 32-36 [facility] Comment on above: Order Comment: Order Date: 08/24/23 Order Info: 0184-1 - CBCD Performed By: #### L 100.0100, L501.9520, L500.4050 #### [facility] [address] [place], [address] MCV (RBC) [Entitic vol] 92.1 fL Normal 81-99 [facility] Comment on above: Order Comment: Order Date: 08/24/23 Order Info: 0184-1 - CBCD Performed By: #### L 100.0100, L501.9520, L500.4050 #### [facility] [address] [place], [address] Monocytes/100 WBC (Bld) 10.7 % High 0-10 [facility] Comment on above: Order Comment: Order Date: 08/24/23 Order Info: 0184-1 - CBCD Performed By: #### L 100.0100, L501.9520, L500.4050 #### [facility] [address] [place], [address] Neutrophils/100 WBC (Bld) 45.0 % Low 47-70 [facility] Comment on above: Order Comment: Order Date: 08/24/23 Order Info: 0184-1 - CBCD Performed By: #### L 100.0100, L501.9520, L500.4050 #### [facility] [address] [place], [address] Nucleated RBC (Bld) [#/Vol] 0 10*3/uL Normal 0-5 [facility] Comment on above: Order Comment: Order Date: 08/24/23 Order Info: 0184-1 - CBCD Performed By: #### L 100.0100, L501.9520, L500.4050 #### [facility] [address] [place], [address] Platelet mean volume (Bld) [Entitic vol] 9.9 fL Normal 6.2-12.0 [facility] Comment on above: Order Comment: Order Date: 08/24/23 Order Info: 0184-1 - CBCD Performed By: #### L 100.0100, L501.9520, L500.4050 #### [facility] [address] [place], [address] Platelets (Bld) [#/Vol] 330 10*3/uL Normal 150-450 [facility] Comment on above: Order Comment: Order Date: 08/24/23 Order Info: 018-1 - CBCD Performed By: #### L 100.0100, L501.9520, L500.4050 #### [facility] [address] [place], [address] RBC (Bld) [#/Vol] 4.17 10*6/uL Low 4.2-5.4 [facility] Comment on above: Order Comment: Order Date: 08/24/23 Order Info: 018-1 - CBCD Performed By: #### L 100.0100, L501.9520, L500.4050 #### [facility] [address] [place], [address] RDW SD 42.0 fl Normal 35.1-43.9 [facility] Comment on above: Order Comment: Order Date: 08/24/23 Order Info: 0184-1 - CBCD Performed By: #### L 100.0100, L501.9520, L500.4050 #### [facility] [address] [place], [address] WBC (Bld) [#/Vol] 5.0 10*3/uL Normal 4.4-11.0 [facility] Comment on above: Order Comment: Order Date: 08/24/23 Order Info: 0184-1 - CBCD Performed By: #### L 100.0100, L501.9520, L500.4050 #### [facility] [address] [place], [address] Comprehensive Metabolic Prof ilon 08-24-2023 Albumin [Mass/Vol] 3.8 g/dL Normal 3.2-5.0 [facility] Comment on above: Order Comment: Order Date: 03/20/24 Order Info: 0786-1 - CMP Order Info: 3016-3 - TSH Performed By: #### L 500.4050 #### [facility] [address] [place], [address] Albumin/Globulin [Mass ratio] 1.2 {ratio} Normal 0.9-2.4 [facility] Comment on above: Order Comment: Order Date: 03/20/24 Order Info: 0786-1 - CMP Order Info: 3016-3 - TSH Performed By: #### L 500.4050 #### [facility] [address] [place], [address] ALK P 47 U/L Normal 45-117 [facility] Comment on above: Order Comment: Order Date: 03/20/24 Order Info: 0786-1 - CMP Order Info: 3016-3 - TSH Performed By: #### L 500.4050 #### [facility] [address] [place], [address] ALT [Catalytic activity/Vol] 39 U/L Normal 13-56 [facility] Comment on above: Order Comment: Order Date: 03/20/24 Order Info: 0786-1 - CMP Order Info: 3016-3 - TSH Performed By: #### L 500.4050 #### [facility] [address] [place], [address] AST [Catalytic activity/Vol] 36 U/L Normal 15-37 [facility] Comment on above: Order Comment: Order Date: 03/20/24 Order Info: 0786-1 - CMP Order Info: 3013 - TSH Performed By: #### L 500.4050 #### [facility] [address] [place], [address] Bilirubin [Mass/Vol] 1.20 mg/dL High 0.20-1.00 [facility] Comment on above: Order Comment: Order Date: 03/20/24 Order Info: 0786-1 - CMP Order Info: 3015-3 - TSH Result Comment: For patients on eltrombopag therapy, use of Dimension Dolliver TBIL is not recommended. Performed By: #### L 500.4050 #### [facility] [address] [place], [address] BUN/CRE 13.5 RATIO Normal 10-20 [facility] Comment on above: Order Comment: Order Date: 03/20/24 Order Info: 0786-1 - CMP Order Info: 3 - TSH Performed By: #### L 500.4050 #### [facility] [address] [place], [address] CA,Total 9.0 mg/dL Normal 8.5-10.1 [facility] Comment on above: Order Comment: Order Date: 03/20/24 Order Info: 0786-1 - CMP Order Info: 3013 - TSH Performed By: #### L 500.4050 #### [facility] [address] [place], [address] Chloride [Moles/Vol] 107 mmol/L Normal 98-107 [facility] Comment on above: Order Comment: Order Date: 03/20/24 Order Info: 0786-1 - CMP Order Info: 301-3 - TSH Performed By: #### L 500.4050 #### [facility] [address] [place], [address] CO2 [Moles/Vol] 30.0 mmol/L Normal 21.0-32.0 [facility] Comment on above: Order Comment: Order Date: 03/20/24 Order Info: 0786-1 - CMP Order Info: 3016 - TSH Performed By: #### L 500.4050 #### [facility] [address] [place], [place], [address] Creatinine [Mass/Vol] 0.59 mg/dL Normal 0.55-1.02 [facility] Comment on above: Order Comment: Order Date: 03/20/24 Order Info: 0786- - CMP Order Info: 3015-06 - TSH Result Comment: The validity of the calculated GFR GFRAA in patients over 70 years has not been determined. Clinical correlation is essential. Performed By: #### L 500.4050 #### [facility] [address] [place], [place], [address] EST GFR - AA 130 mL/min Normal >60 [facility] Comment on above: Order Comment: Order Date: 03/20/24 Order Info: 0786- - CMP Order Info: 3016 - TSH Result Comment: Afri can Swiss GFR Calc Performed By: #### L 500.4050 #### [facility] [address] [place], [address] GAP 3 Low 5-15 [facility] Comment on above: Order Comment: Order Date: 03/20/24 Order Info: 0786-1 - CMP Order Info: 3016 - TSH Performed By: #### L 500.4050 #### [facility] [address] [place], [place], [address] GFR/1.73 sq M.predicted among non-blacks MDRD (S/P/Bld) [Vol rate/Area] 108 mL/min/{1.73_m2} Normal >60 [facility] Comment on above: Order Comment: Order Date: 03/20/24 Order Info: 0786-1 - CMP Order Info: 3013 - TSH Result Comment: Non- GFR Calc Performed By: #### L 500.4050 #### [facility] [address] [place], [address] Globulin (S) [Mass/Vol] 3.1 g/dL Normal 2.2-4.2 [facility] Comment on above: Order Comment: Order Date: 03/20/24 Order Info: 0786-1 - CMP Order Info: 3015-3 - TSH Performed By: #### L 500.4050 #### [facility] [address] [place], [address] Glucose [Mass/Vol] 97 mg/dL Normal 74-106 [facility] Comment on above: Order Comment: Order Date: 03/20/24 Order Info: 07-1 - CMP Order Info: 3 - TSH Performed By: #### L 500.4050 #### [facility] [address] [place], [address] Potassium [Moles/Vol] 4.1 mmol/L Normal 3.5-5.1 [facility] Comment on above: Order Comment: Order Date: 03/20/24 Order Info: 0786-1 - CMP Order Info: 3 - TSH Performed By: #### L 500.4050 #### [facility] [address] [place], [address] Sodium [Moles/Vol] 140 mmol/L Normal 136-145 [facility] Comment on above: Order Comment: Order Date: 03/20/24 Order Info: 0786-1 - CMP Order Info: 3013 - TSH Performed By: #### L 500.4050 #### [facility] [address] [place], [address] T PROT 6.9 g/dL Normal 6.4-8.2 [facility] Comment on above: Order Comment: Order Date: 03/20/24 Order Info: 0786-1 - CMP Order Info: 3 - TSH Performed By: #### L 500.4050 #### [facility] [address] [place], [place], [address] Urea nitrogen [Mass/Vol] 8 mg/dL Normal 7-18 [facility] Comment on above: Order Comment: Order Date: 03/20/24 Order Info: 0786-1 - CMP Order Info: 3016-3 - TSH Performed By: #### L 500.4050 #### [facility] [address] [place], [place], [address] Thyroid Stim Hormone (TSH)on 08-24-2023 TSH 0.90 uIU/mL Normal 0.358-3.74 [facility] Comment on above: Order Comment: Order Date: 03/20/24 Order Info: 0786-1 - CMP Order Info: 3016-3 - TSH Performed By: #### L 500.4050 #### [facility] [address] [place], [place], [address] Culture, urineOrdered By: Idania Kuhn on 11-17-2022 Bacteria identified Cx Nom (U) Mixed Gram Pos & Gram Neg Org [facility] Absolute lymphocyte counton 08-12-2021 Lymphocytes Auto (Unsp spec) [#/Vol] 2.01 10*3/uL 0.83-4.51 [facility] Work Phone: Basophil percentageon 2021 Basophils/100 WBC (Bld) 1.1 % 0-1 [facility] Work Phone: Bilirubin [Mass/Vol] 1.40 mg/dL 0.20-1.00 [facility] Work Phone: Comment on above: For patients on eltr ombopag therapy, use of Dimension Dolliver TBIL is not recommended. Eosinophils/100 WBC (Bld) 0.9 % 0-5 [facility] Work Phone: Neutrophils (Bld) [#/Vol] 2.8 10*3/uL 2.0-7.7 [facility] Work Phone: Neutrophils/100 WBC (Bld) 50.6 % 47-70 [facility] Work Phone: Protein [Mass/Vol] 7.5 g/dL 6.4-8.2 [facility] Work Phone: WBC (Bld) [#/Vol] 5.5 10*3/uL 4.4-11.0 [facility] Work Phone: Blood erythrocytes count (nu mber/volume)on 08-12-2021 RBC (Bld) [#/Vol] 4.38 10*6/uL 4.2-5.4 [facility] Work Phone: Blood hemoglobin measurement (mass/volume)on 08-12-2021 Hemoglobin (Bld) [Mass/Vol] 12.9 g/dL 12.0-15.0 [facility] Work Phone: Blood lymphocytes/100 leukoc yteson 08-12-2021 Lymphocytes/100 WBC (Bld) 36.6 % 19-41 [facility] Work Phone: Blood monocytes/100 leukocyt eson 08-12-2021 Monocytes/100 WBC (Bld) 10.6 % 0-10 [facility] Work Phone: Blood platelet mean volumeon 08-12-2021 Platelet mean volume (Bld) [Entitic vol] 10.5 fL 6.2-12.0 [facility] Work Phone: Determination of erythrocyte mean corpuscular volume (MCV)on 08-12-2021 MCV (RBC) [Entitic vol] 92.0 fL 81-99 [facility] Work Phone: Direct bilirubinon Bilirubin.direct [Mass/Vol] 0.25 mg/dL 0.00-0.30 [facility] Work Phone: Hematocrit Auto (Bld) [Volum e fraction]on 08-12-2021 Hematocrit (Bld) [Volume fraction] 40.3 % 37-47 [facility] Work Phone: Laboratory - Chemistry and C hemistry - challengeon 08-12-2021 ALP [Catalytic activity/Vol] 54 U/L 45-117 [facility] Work Phone: ALT [Catalytic activity/Vol] 24 U/L 13-56 [facility] Work Phone: Free T4 [Mass/Vol] 1.12 ng/dL 0.76-1.46 [facility] Work Phone: Globulin (S) [Mass/Vol] 3.2 g/dL 2.2-4.2 [facility] Work Phone: Laboratory - Hematology and Cell countson 08-12-2021 Erythrocyte distribution width (RBC) [Entitic vol] 42.3 fL 35.1-43.9 [facility] Work Phone: Erythrocyte distribution width (RBC) [Ratio] 12.3 % 11.6-14.6 [facility] Work Phone: Immature granulocytes/100 WBC (Bld) 0.200 % 0.0-0.9 [facility] Work Phone: Comment on above: IG% - Immature Granu locytes (promyelocytes, myelocytes and metamyelocytes) > 1% indicates that a LEFT SHIFT is Present. MCH (RBC) [Entitic mass] 29.5 pg 27.0-32.0 [facility] Work Phone: Nucleated RBC/100 WBC (Bld) [Ratio] 0 % 0-5 [facility] Work Phone: MCHC Auto (RBC) [Mass/Vol]on 08-12-2021 MCHC (RBC) [Mass/Vol] 32.0 g/dL 32-36 [facility] Work Phone: No Panel Informationon 08-12 Anti-Nuclear Antibody Screen Positive Negative [facility] Work Phone: Comment on above: Performed at: [address] [id number] Director: Teddy Duong PhD, Phone: [phone] Thyroid Stimulating Hormone (TSH) 0.91 uIU/mL 0.358-3.74 [facility] Work Phone: Platelets bldon 08-12-2021 Platelets (Bld) [#/Vol] 323 10*3/uL 150-450 [facility] Work Phone: Serum or plasma albumin triny urement (mass/volume)on 08-12-2021 Albumin [Mass/Vol] 4.3 g/dL 3.2-5.0 [facility] Work Phone: Serum rheumatoid factor dete ctionon 08-12-2021 Rheumatoid factor Ql (S) < 10.0 IU/mL <15 [facility] Work Phone: Thin prep Papanicolaou smear with manual screeningon 08-12-2021 Thin prep Papanicolaou smear with manual screening 20 U/L 15-37 [facility] Work Phone: .Auto Diffon 10-01-2019 Ammonia (P) [Mass/Vol] 0.70 10 3/mcL Normal 0.15-1.00 [facility] Comment on above: Performed By: #### Yeny PEREZ, BAYRON ADIFF, CBC #### [address] [address] #### BMP #### [address] [address] Basophils (Bld) [#/Vol] 0.00 10 3/mcL Normal 0.00-0.19 [facility] Comment on above: Performed By: #### Yeny FR, ANEU, ADIFF, CBC #### [address] [address] #### BMP #### [address] [address] Basophils/100 WBC (Bld) 0.3 % Normal 0.0-2.5 [facility] Comment on above: Performed By: #### Yeny FR, ANEU, ADIFF, CBC #### [address] [address] #### BMP #### [address] [address] Eosinophils (Bld) [#/Vol] 0.00 10 3/mcL Normal 0.00-0.40 [facility] Comment on above: Performed By: #### G FR, ANEU, ADIFF, CBC #### [address] [address] #### BMP #### [address] [address] Eosinophils/100 WBC (Bld) 0.0 % Normal 0.0-7.0 [facility] Comment on above: Performed By: #### G FR, ANEU, ADIFF, CBC #### [address] [address] #### BMP #### [address] [address] Lymphocytes (Bld) [#/Vol] 1.10 10 3/mcL Normal 0.77-3.85 [facility] Comment on above: Performed By: #### G FR, ANEU, ADIFF, CBC #### [address] [address] #### BMP #### [address] [address] Lymphocytes/100 WBC (Bld) 12.6 % Normal 10.0-50.0 [facility] Comment on above: Performed By: #### G FR, ANEU, ADIFF, CBC #### [address] [address] #### BMP #### [address] [address] Monocytes/100 WBC (Bld) 7.2 % Normal 1.7-13.0 [facility] Comment on above: Performed By: #### G FR, ANEU, ADIFF, CBC #### [address] [address] #### BMP #### [address] [address] Neutrophils/100 WBC (Bld) 79.9 % Normal 37.0-80.0 [facility] Comment on above: Performed By: #### G BAYRON PEREZ ADIFF, CBC #### [address] [address] #### BMP #### [address] [address] .GFRon 10-01-2019 GFR 116 ml/min/1.73sqm Normal [facility] Comment on above: Result Comment: GFR Population mean for , Non- Americans Ages 20-29 = 116 mL/min/1.73 sq.m. Ages 30-39 = 107 mL/min/1.73 sq.m. Ages 40-49 = 99 mL/min/1.73 sq.m. Ages 50-59 = 93 mL/min/1.73 sq.m. Ages 60-69 = 85 mL/min/1.73 sq.m. Ages 70+ = 75 mL/min/1.73 sq.m. Chronic Kidney Disease: Less than 60 mL/min/1.73 square meters End Stage Renal Disease: Less than 15 mL/min/1.73 square meters Performed By: #### A RYAN CARTER, CBC, GFR #### [address] [address] #### BMP #### [address] [address] GFR Non- 95 ml/min/1.73sqm Normal [facility] Comment on above: Result Comment: GFR Population mean for , Non- Americans Ages 20-29 = 116 mL/min/1.73 sq.m. Ages 30-39 = 107 mL/min/1.73 sq.m. Ages 40-49 = 99 mL/min/1.73 sq.m. Ages 50-59 = 93 mL/min/1.73 sq.m. Ages 60-69 = 85 mL/min/1.73 sq.m. Ages 70+ = 75 mL/min/1.73 sq.m. Chronic Kidney Disease: Less than 60 mL/min/1.73 square meters End Stage Renal Disease: Less than 15 mL/min/1.73 square meters Performed By: #### A EMMA, ADIFF, CBC, GFR #### [place] [address] #### BMP #### [address] [address] .NEUABSon 10-01-2019 Neutrophils (Bld) [#/Vol] 7.20 10 3/mcL High 2.85-6.16 [facility] Comment on above: Performed By: #### G FR, ANEU, ADIFF, CBC #### [place] [address] #### BMP #### [address] 10-01-2019 Calcium [Mass/Vol] 8.7 mg/dL Normal 8.4-10.2 [facility] ([place]) Comment on above: Performed By: #### A EMMA, ADIFF, CBC, GFR #### [place] [address] #### BMP #### [place] [address] Chloride [Moles/Vol] 103 mmol/L Normal 98-107 [facility] ([place]) Comment on above: Performed By: #### A EMMA, ADIFF, CBC, GFR #### [place] [address] #### BMP #### [place] [address] CO2 [Moles/Vol] 27 mmol/L Normal 23-31 [facility] ([place]) Comment on above: Performed By: #### A EMMA, ADIFF, CBC, GFR #### [place] [address] #### BMP #### [place] [address] Creatinine [Mass/Vol] 0.63 mg/dL Normal 0.55-1.02 [facility] ([place] Comment on above: Performed By: #### A EMMA, ADIFF, CBC, GFR #### [address] [address] #### BMP #### [address] [address] Electrolyte Balance 9.0 mEq/L Normal [facility] ([place]) Comment on above: Performed By: #### A EMMA, ADIFF, CBC, GFR #### [address] [address] #### BMP #### [address] [address] Glucose [Mass/Vol] 114 mg/dL Normal 80-115 [facility] ([place] Comment on above: Performed By: #### A EMMA, ADIFF, CBC, GFR #### [address] [address] #### BMP #### [address] [address] Potassium [Moles/Vol] 4.5 mmol/L Normal 3.5-5.1 [facility] ([place] Comment on above: Performed By: #### A EMMA, ADIFF, CBC, GFR #### [address] [address] #### BMP #### [address] [address] Sodium [Moles/Vol] 139 mmol/L Normal 136-145 [facility] ([place] Comment on above: Performed By: #### A EMMA, ADIFF, CBC, GFR #### [address] [address] #### BMP #### [address] [address] Urea nitrogen [Mass/Vol] 7 mg/dL Normal 7-18 [facility] [place] Comment on above: Performed By: #### A EMMA, ADIFF, CBC, GFR #### [address] [address] #### BMP #### [address] [address] Urea nitrogen/Creatinine [Mass ratio] 11 ratio Normal 7-27 [facility] [place] Comment on above: Performed By: #### A EMMA, ADIFF, CBC, GFR #### [address] [address] #### BMP #### [address] [address] CBCon 10-01-2019 Erythrocyte distribution width (RBC) [Ratio] 12.8 % Normal 11.5-14.5 [facility] [place] Comment on above: Performed By: #### A EMMA, ADIFF, CBC, GFR #### [place] [address] #### BMP #### [place] [address] Hematocrit (Bld) [Volume fraction] 37.3 % Normal 37.0-47.0 [facility] [place] Comment on above: Performed By: #### A EMMA, ADIFF, CBC, GFR #### [place] [address] #### BMP #### [place] [address] Hemoglobin (Bld) [Mass/Vol] 12.5 G/dL Normal 12.0-16.0 [facility] [place] Comment on above: Performed By: #### A EMMA, ADIFF, CBC, GFR #### [place] [address] #### BMP #### [place] [address] MCH (RBC) [Entitic mass] 30.4 pg Normal 27.0-31.2 [facility] [place] Comment on above: Performed By: #### A EMMA, ADIFF, CBC, GFR #### [place] [address] #### BMP #### [place] [address] MCHC (RBC) [Mass/Vol] 33.5 G/dL Normal 33.0-37.0 [facility] [place] Comment on above: Performed By: #### A EMMA, ADIFF, CBC, GFR #### [address] [address] #### BMP #### [address] [address] MCV (RBC) [Entitic vol] 90.7 fL Normal 80.0-94.0 [facility] [place] Comment on above: Performed By: #### A EMMA, ADIFF, CBC, GFR #### [place] [address] #### BMP #### [address] [address] Platelet mean volume (Bld) [Entitic vol] 8.7 fL Normal 7.4-10.4 [facility] ([place]) Comment on above: Performed By: #### A EMMA, ADIFF, CBC, GFR #### [place] [address] #### BMP #### [address] [address] Platelets (Bld) [#/Vol] 318 10 3/mcL Normal 130-400 [facility] [place] Comment on above: Performed By: #### A EMMA, ADIFF, CBC, GFR #### [place] [address] #### BMP #### [address] [address] RBC (Bld) [#/Vol] 4.11 10 6/mcL Low 4.20-5.40 [facility] ([place]) Comment on above: Performed By: #### A EMMA, ADIFF, CBC, GFR #### [place] [address] #### BMP #### [address] [address] WBC (Bld) [#/Vol] 9.00 10 3/mcL Normal 4.60-10.80 [facility] ([place] Comment on above: Performed By: #### A EMMA, ADIFF, CBC, GFR #### [place] [id number] #### BMP #### [address] [address] XR KNEE 1 OR 2 VIEWS LEFTon 09-30-2019 XR KNEE 1 OR 2 VIEWS LEFT ORIGINAL XR KNEE 1 OR 2 VIEWS LEFT CLINICAL STATEMENT: Status Post Arthroplasty. COMPARISON: CT LEFT knee 09/19/2019 FINDINGS: There is a medial compartment joint replacement. The components appear well seated and intact. No acute fracture or dislocation identified. Gas and fluid within the soft tissues is consistent with immediate postoperative state. Postsurgical change seen of the distal femoral shaft. Surgical jorje overlie the skin anteriorly. IMPRESSION: Post surgical changes. Interpreted By: Karen Bah MD Preliminary Report By: Karen Bah MD Electronically Signed By: Karen Bah MD Dictated Date: 09/30/2019 4:19:32 PM Prelim Date: 09/30/2019 4:19:32 PM Sign Date: 09/30/2019 4:20:55 PM Ordering Provider:Osman Batres [facility] ([place]) .Auto Diffon 09-19-2019 Ammonia (P) [Mass/Vol] 0.50 10 3/mcL Normal 0.15-1.00 [facility] [place] Comment on above: Performed By: #### G FR, ANEU, ADIFF, CBC #### [place] [address] #### BMP #### [address] [address] Basophils (Bld) [#/Vol] 0.10 10 3/mcL Normal 0.00-0.19 [facility] [place] Comment on above: Performed By: #### G FR, ANEU, ADIFF, CBC #### [place] [address] #### BMP #### [address] [address] Basophils/100 WBC (Bld) 1.0 % Normal 0.0-2.5 [facility] ([place] Comment on above: Performed By: #### G FR, ANEU, ADIFF, CBC #### [place] [address] #### BMP #### [address] [address] Eosinophils (Bld) [#/Vol] 0.00 10 3/mcL Normal 0.00-0.40 [facility] ([place]) Comment on above: Performed By: #### G FR, ANEU, ADIFF, CBC #### [address] [address] #### BMP #### [address] [address] Eosinophils/100 WBC (Bld) 0.6 % Normal 0.0-7.0 [facility] ([place] Comment on above: Performed By: #### G FR, ANEU, ADIFF, CBC #### [address] [address] #### BMP #### [address] [address] Lymphocytes (Bld) [#/Vol] 1.60 10 3/mcL Normal 0.77-3.85 [facility] ([place] Comment on above: Performed By: #### G FR, ANEU, ADIFF, CBC #### [address] [address] #### BMP #### [address] [address] Lymphocytes/100 WBC (Bld) 28.8 % Normal 10.0-50.0 [facility] ([place] Comment on above: Performed By: #### G FR, ANEU, ADIFF, CBC #### [address] [address] #### BMP #### [address] [address] Monocytes/100 WBC (Bld) 9.0 % Normal 1.7-13.0 [facility] ([place] Comment on above: Performed By: #### G FR, ANEU, ADIFF, CBC #### [address] [address] #### BMP #### [address] [address] Neutrophils/100 WBC (Bld) 60.6 % Normal 37.0-80.0 [facility] ([place] Comment on above: Performed By: #### G BAYRON PREEZ ADIFF, CBC #### [place] [address] [address] #### BMP #### [address] [address] .GFRon 09-19-2019 GFR 112 ml/min/1.73sqm Normal [facility] ([place] Comment on above: Result Comment: GFR Population mean for , Non- Americans Ages 20-29 = 116 mL/min/1.73 sq.m. Ages 30-39 = 107 mL/min/1.73 sq.m. Ages 40-49 = 99 mL/min/1.73 sq.m. Ages 50-59 = 93 mL/min/1.73 sq.m. Ages 60-69 = 85 mL/min/1.73 sq.m. Ages 70+ = 75 mL/min/1.73 sq.m. Chronic Kidney Disease: Less than 60 mL/min/1.73 square meters End Stage Renal Disease: Less than 15 mL/min/1.73 square meters Performed By: #### G BAYRON PEREZ ADIFF, CBC #### [place] [address] [address] #### BMP #### [address] [address] GFR Non- 92 ml/min/1.73sqm Normal [facility] ([place] Comment on above: Result Comment: GFR Population mean for , Non- Americans Ages 20-29 = 116 mL/min/1.73 sq.m. Ages 30-39 = 107 mL/min/1.73 sq.m. Ages 40-49 = 99 mL/min/1.73 sq.m. Ages 50-59 = 93 mL/min/1.73 sq.m. Ages 60-69 = 85 mL/min/1.73 sq.m. Ages 70+ = 75 mL/min/1.73 sq.m. Chronic Kidney Disease: Less than 60 mL/min/1.73 square meters End Stage Renal Disease: Less than 15 mL/min/1.73 square meters Performed By: #### G FR, ANEU, ADIFF, CBC #### [place] [address] #### BMP #### [address] [address] .NEUABSon 09-19-2019 Neutrophils (Bld) [#/Vol] 3.30 10 3/mcL Normal 2.85-6.16 [facility] ([place] Comment on above: Performed By: #### G FR, ANEU, ADIFF, CBC #### [place] [address] #### BMP #### [place] [address] BMPon 09-19-2019 Calcium [Mass/Vol] 8.7 mg/dL Normal 8.4-10.2 [facility] ([place] Comment on above: Performed By: #### Yeny FR, ANEU, ADIFF, CBC #### [place] [address] #### BMP #### [place] [address] Chloride [Moles/Vol] 102 mmol/L Normal 98-107 [facility] ([place]) Comment on above: Performed By: #### G FR, ANEU, ADIFF, CBC #### [place] [address] #### BMP #### [place] [address] CO2 [Moles/Vol] 29 mmol/L Normal 23-31 [facility] ([place]) Comment on above: Performed By: #### G FR, ANEU, ADIFF, CBC #### [place] [address] #### BMP #### [address] [address] Creatinine [Mass/Vol] 0.65 mg/dL Normal 0.55-1.02 [facility] ([place] Comment on above: Performed By: #### G FR, ANEU, ADIFF, CBC #### [address] [address] #### BMP #### [address] [address] Electrolyte Balance 9.0 mEq/L Normal [facility] ([place]) Comment on above: Performed By: #### G FR, ANEU, ADIFF, CBC #### [address] [address] #### BMP #### [address] [address] Glucose [Mass/Vol] 96 mg/dL Normal 80-115 [facility] ([place] Comment on above: Performed By: #### Yeny PEREZ, ANEU, ADIFF, CBC #### [address] [address] #### BMP #### [address] [address] Potassium [Moles/Vol] 4.2 mmol/L Normal 3.5-5.1 [facility] ([place] Comment on above: Performed By: #### Yeny PEREZ, ANEU, ADIFF, CBC #### [address] [address] #### BMP #### [address] [address] Sodium [Moles/Vol] 140 mmol/L Normal 136-145 [facility] ([place] Comment on above: Performed By: #### Yeny PEREZ, ANEU, ADIFF, CBC #### [address] [address] #### BMP #### [address] [address] Urea nitrogen [Mass/Vol] 11 mg/dL Normal 7-18 [facility] ([place] Comment on above: Performed By: #### G FR, ANEU, ADIFF, CBC #### [address] [address] #### BMP #### [address] [address] Urea nitrogen/Creatinine [Mass ratio] 17 ratio Normal 7-27 [facility] [place] Comment on above: Performed By: #### G FR, ANEU, ADIFF, CBC #### [address] [address] #### BMP #### [address] [address] CBCon 09-19-2019 Erythrocyte distribution width (RBC) [Ratio] 12.7 % Normal 11.5-14.5 [facility] ([place] Comment on above: Order Comment: Pre-A dmission Testing Performed By: #### G FR, ANEU, ADIFF, CBC #### [address] [address] #### BMP #### [address] [address] Hematocrit (Bld) [Volume fraction] 38.9 % Normal 37.0-47.0 [facility] ([place] Comment on above: Order Comment: Pre-A dmission Testing Performed By: #### G FR, ANEU, ADIFF, CBC #### [address] [address] #### BMP #### [address] [address] Hemoglobin (Bld) [Mass/Vol] 12.9 G/dL Normal 12.0-16.0 [facility] ([place] Comment on above: Order Comment: Pre-A dmission Testing Performed By: #### G FR, ANEU, ADIFF, CBC #### [place] [address] #### BMP #### [address] [address] MCH (RBC) [Entitic mass] 30.0 pg Normal 27.0-31.2 [facility] ([place] Comment on above: Order Comment: Pre-A dmission Testing Performed By: #### G FR, ANEU, ADIFF, CBC #### [address] [address] #### BMP #### [address] [address] MCHC (RBC) [Mass/Vol] 33.1 G/dL Normal 33.0-37.0 [facility] ([place] Comment on above: Order Comment: Pre-A dmission Testing Performed By: #### G FR, ANEU, ADIFF, CBC #### [address] [address] #### BMP #### [address] [address] MCV (RBC) [Entitic vol] 90.8 fL Normal 80.0-94.0 [facility] ([place] Comment on above: Order Comment: Pre-A dmission Testing Performed By: #### G FR, ANEU, ADIFF, CBC #### [address] [address] #### BMP #### [address] [address] Platelet mean volume (Bld) [Entitic vol] 8.2 fL Normal 7.4-10.4 [facility] ([place]) Comment on above: Order Comment: Pre-A dmission Testing Performed By: #### G FR, ANEU, ADIFF, CBC #### [address] [address] #### BMP #### [address] [address] Platelets (Bld) [#/Vol] 355 10 3/mcL Normal 130-400 [facility] ([place] Comment on above: Order Comment: Pre-A dmission Testing Performed By: #### G FR, ANEU, ADIFF, CBC #### [address] [address] #### BMP #### [address] [address] RBC (Bld) [#/Vol] 4.28 10 6/mcL Normal 4.20-5.40 [facility] ([place]) Comment on above: Order Comment: Pre-A dmission Testing Performed By: #### G FR, ANEU, ADIFF, CBC #### [address] [address] #### BMP #### [place] [address] [address] [place] [address] WBC (Bld) [#/Vol] 5.40 10 3/mcL Normal 4.60-10.80 [facility] ([place] Comment on above: Order Comment: Pre-A dmission Testing Performed By: #### G FR, ANEU, ADIFF, CBC #### [facility] [address] [place], [place] [address] #### BMP #### [address] [address] [address] KNEE W/O CONTRAST LEFTon 09-19-2019 CT KNEE W/O CONTRAST LEFT ORIGINAL CT KNEE W/O CONTRAST LEFT This exam was performed according to our departmental dose optimization program, and includes the following measures where applicable: automated exposure control, adjustment of the mAs and/or kVp according to patient size and/or exam, and an iterative reconstruction algorithm. CLINICAL STATEMENT: VARUS DEFORMITY, NOT ELSEWHERE CLASSIFIED, LT KNEE COMPARISON: None FINDINGS: Images of the LEFT hip, knee, and ankle were acquired. Sagittal and coronal reformations of the knee were performed. The LEFT knee demonstrates tricompartmental joint space narrowing and osteophyte formation. A [id number] effusion is present. Subchondral cyst formation is noted in the acetabulum. The LEFT hip and ankle are intact. IMPRESSION: Tricompartmental osteoarthritis LEFT knee. Interpreted By: Lizz Gonzalez MD Preliminary Report By: Lizz Gonzalez MD Electronically Signed By: Lizz Gonzalez MD Dictated Date: 09/19/2019 1:46:06 PM Prelim Date: 09/19/2019 1:46:06 PM Sign Date: 09/19/2019 1:49:18 PM Ordering Provider:Osman Batres [facility] ([place]) Encounters Encounter Date Encounter Type Care Provider Facility Start: 07-23-2024 [facility]ulatory [facility] [place] [facility] Start: 03-20-2024 End: 03-20-2024 ambulatory Kieran [place] Facility:[facility] Start: 12-27-2023 Encounter for gynecological examination (general) (routine) without abnormal findings [facility] Start: 12-07-2023 End: 12-07-2023 ambulatory M[facility] Facility:[facility] Start: 10-10-2023 End: 10-10-2023 ambulatory Kieran Granados Facility:[facility] Start: 08-24-2023 End: 08-24-2023 ambulatory Kieran Granados Facility:[facility] Start: 12-06-2022 End: 12-06-[address] [facility] Work Phone: Start: 12-06-2022 End: 12-06-[address] [facility] [place] Work Phone: Start: 11-17-2022 End: 11-17-[address] [facility] Work Phone: Start: 11-17-2022 End: 11-17-[address] [facility] Work Phone: Start: 09-29-2022 ambulatory Facility:[facility] Start: 08-12-2021 End: 08-12-[address] [facility] [place] Family Procedures Date Procedure Procedure Detail Performing Clinician Start: 12-06-2022 End: 12-06-2022 X-ray of both feet Start: 11-17-2022 Urine culture Payers Date Payer Category Payer Medicare [id number] 2023 Private Health Insurance [id number] 2023 Self-pay [id number] Unknown [id number] 2.16.8 [id number] Unknown [id number] 2.16.8 [id number] Unknown [id number] 2.16.8 [id number] Unknown [id number] 2.16.8 [id number] Unknown [id number] 2.16.8 [id number] Unknown [id number] 2.16.8 [id number] Social History Date Type Detail [facility] Work Phone: Start: 1955 Sex Assigned At Female [facility] Evaluation note Note Date & Type Note Facility Evaluation note No assessment information availa ble [facility] Work Phone: Summary Purpose Family History No Family History Records FoundNo Family History Records FoundNo Family History Records Found Advance Directives No Advanced Directives Records FoundNo Advanced Directives Records FoundNo Advanced Directives Records Found Additional Source Comments INFORMATION SOURCE (unrecogn ized section and content) DATE CREATED AUTHOR 12/16/2019 [facility] ([place]) DATE CREATED AUTHOR AUTHOR'S ORGANIZ ATION 09/30/2022 [facility] DATE CREATED AUTHOR AUTHOR'S ORGANIZ ATION 07/30/2024 [facility] Goals (unrecognized section and content) Goals may be documented in a n alternate sectionGoals may be documented in an alternate sectionGoals may be documented in an alternate sectionGoals may be documented in an alternate sectionGoals may be documented in an alternate section Care Teams (unrecognized sec tion and content) Team Status: Active Member Role Status Dates Dr. Kieran Granados MD Family Provider Active Dr. Kieran Granados MD Primary Care Provider Active Team Status: Inactive Member Role Status Dates Dr. Kieran Granados MD Primary Care Provider Active Dr. Colin Kuhn MD Attending Provider, Referring Provider Active Team Status: Inactive Member Role Status Dates Dr. Kieran Granados MD Primary Care Provider Active ROSEANN SANTOS MD Attending Provider, Referring Pro vider Active FOR RECORDS PERTAINING TO PATIENTS WHO ARE OR HAVE BEEN ENROLLED IN A CHEMICAL DEPENDENCY/SUBSTANCEABUSE PROGRAM, SOME INFORMATION MAY BE OMITTED. This clinical summary was aggregated from multiple sources. Caution should be exercised in using it in the provision of clinical care. This summary normalizes information from multiple sources, and as a consequence, information in this document may materially change the coding, format and clinical context of patient data. In addition, data may be omitted in some cases. CLINICAL DECISIONS SHOULD BE BASED ON THE PRIMARY CLINICAL RECORDS. [facility] [employer] [facility]. provides no warranty or guarantee of the accuracy or completeness of information in this document.
[2024-10-31 16:27] LABS: AST(SGOT) 24 U/L (<=31); Alanine Aminotransfer ALT/SGPT 14 U/L (<=34); Albumin, Serum 4.6 g/dL (3.4-4.8); Alkaline Phosphatase 46 U/L (35-104); Anion Gap 13 (5-15); BUN 9 mg/dL (4-19); BUN/Creat Ratio 14.0 RATIO (10-20); Calcium,Total 9.7 mg/dL (7.6-11.0); Carbon Dioxide 24.9 mmol/L (21.0-32.0); Chloride 101 mmol/L (98-108); Ferritin 111 ng/mL (22-378); Globulin 2.5 g/dL (2.2-4.2); Glucose 90 mg/dL (70-99); Potassium 4.0 mmol/L (3.3-5.1); Vitamin D,25 Hydroxy 60.3 ng/mL (30-100)
== END | disposition home or self-care (01) ==
LOC: MFPLAB 11:22
PROVIDERS: PCP Family Medicine; Referring Provider Family Medicine; Visit Provider Family Medicine
DX: E55.9 Vitamin D deficiency, unspecified (principal); M81.0 Age-related osteoporosis without current pathological fracture; D50.9 Iron deficiency anemia, unspecified
CPT/HCPCS: 36415; 80053; 82306; 82728; 85025

== ENCOUNTER → 2025-01-01 | Outpatient (CLI) | payer MEDICARE, OTHER, SELFPAY ==
--- NOTE | 2025-01-01 08:36 | BI_ITS ---
EXAM: SCRN MAMM (CAD)W/JUAN ANTONIO BILAT DATE: 01/01/2025 CLINICAL HISTORY: F, Age 69 y/o , SCREENING No family history. Prior right breast biopsy. TECHNIQUE: Procedure Code: [id number] Modality: MG Procedure: SCRN MAMM (CAD)W/JUAN ANTONIO BILAT COMPARISON: Prior exam(s) dated October 10, 2023.. FINDINGS: TISSUE DENSITY: The breasts are heterogeneously dense, which may obscure small masses. Bilateral Breast Mammographic Findings: Stable 8.8 mm nodular density in the deep upper lateral aspect of the right breast. A tissue clip marker is seen within it from prior biopsy. There is a 1 cm irregular nodule in the anterior upper lateral aspect of the right breast. Sonographic correlation recommended. BI/SCRN MAMM (CAD)W/JUAN ANTONIO BILAT IMPRESSION: New 1.2 cm spiculated nodule in the anterior upper lateral aspect of the right breast as described. Sonographic correlation recommended. OVERALL FINAL ASSESSMENT BI-RADS 0: INCOMPLETE - NEED ADDITIONAL IMAGING EVALUATION. RECOMMENDATION: Ultrasound Recommended A letter with findings and recommendations will be mailed to the patient. Reading Location: [place] [address]
== END | disposition home or self-care (01) ==
LOC: OPBI 08:34
PROVIDERS: PCP Family Medicine; Referring Provider Family Medicine; Visit Provider Family Medicine
DX: Z12.31 Encounter for screening mammogram for malignant neoplasm of breast (principal)
CPT/HCPCS: 77063; 77067

== ENCOUNTER → 2025-01-16 | Outpatient (CLI) | payer MEDICARE, OTHER, SELFPAY ==
--- NOTE | 2025-01-16 09:01 | US_ITS ---
PROCEDURE: BREAST LIMITED UNILATERAL 01/16/2025 REASON FOR EXAM: F, Age 69 y/o , ABD MAMM COMPARISON: Mammogram 01/01/2025 on 10/10/2023. TECHNIQUE: Procedure Code: USBRSTLIMIT Modality: US Procedure: BREAST LIMITED UNILATERAL FINDINGS: Follow-up examination performed for the irregular right breast mass seen on examination of 01/01/2025. On the present examination, in the right breast at 10 o'clock 5 cm from the nipple there is an irregular hypoechoic vascular mass with posterior shadowing measuring 1.3 x 1.3 x 1.1 cm. This correlates to the mammographic finding. Follow-up examination performed for the mass in the upper-outer right breast at posterior depth seen on examination of 01/01/2025. On the present examination in the right breast at 10 o'clock 11 cm from the nipple there is a mildly enlarged intramammary lymph node with diffuse cortical thickening measuring 1.0 x 0.8 x 0.6 cm with cortical thickness of 0.3 cm. This correlates to the mammographic finding. The remainder of the right breast was imaged demonstrating no additional suspicious sonographic findings. There is a normal-appearing right axillary lymph node. US/Breast Limited Unilateral IMPRESSION: 1. Irregular right breast mass at 10 o'clock 5 cm from the nipple is highly barclay ggestive of malignancy. Recommend tissue sampling with ultrasound-guided core needle biopsy for further evaluation. 2. Abnormal intramammary lymph node in the right breast at 10 o'clock 11 cm fr om the nipple is suspicious. Recommend tissue sampling with ultrasound-guided core needle biopsy for further evaluation. BI-RADS 5: HIGHLY SUGGESTIVE OF MALIGNANCY. RECOMMENDATION: Biopsy Recommended Reading Location: [id number]
== END | disposition home or self-care (01) ==
LOC: OPUS 08:57
PROVIDERS: PCP Family Medicine; Referring Provider Family Medicine; Visit Provider Family Medicine
DX: R92.8 Other abnormal and inconclusive findings on diagnostic imaging of breast (principal)
CPT/HCPCS: 76642

== ENCOUNTER → 2025-02-03 | Outpatient (CLI) | payer MEDICARE, OTHER, SELFPAY ==
--- NOTE | 2025-02-03 | BRBX_PTH ---
PATIENT: MANDY ADHIKARI LOC: [facility] U#:[id number] AGE/SX: 69/F ROOM: RE02/03/[address]: Dr. Nubia Simmons MD : 1955 BED: DIS: 02/03/2025 SPEC #: [id number] RECD: 02/03/25 10:02 STATUS: PAUL REChet #: [id number] MARYANN: 02/03/25 00:[address]: Nubia Simmons DEPT: SURGICAL PATHOLOGY RECD BY: Vick Ortiz ENTERED: 02/03/25 14:45 SP TYPE: BREAST BX OTHR DR: Dr. Kieran Granados MD Tissues: A - Right breast, NOS B - Right breast, NOS Procedures: Immunohistochemical Stains Surgery Specimen Level IV IHC Stain ADDITIONAL HEADER OPERATION: Right breast biopsy and right breast lymph node biopsy PRE-OP DIAGNOSIS: Right breast lesion, abnormal right lymph node TISSUE SUBMITTED: A- Right breast mass - 10o'clock, 5cm, B- Right intramammary lymph node - 11o'clock, 11cm MICROSCOPIC DIAGNOSIS A. Right breast, 10:00, 5 cm, biopsy: * Invasive ductal carcinoma, Grade 2 (See note) Note: Sections show an invasive ductal carcinoma, Grade 2 (tubules=3, nuclear pleomorphism=2, mitosis=1) measuring 1.2 cm in greatest dimension. The ECadherin stain is strong and diffusely positive (membranous staining) supporting the ductal phenotype. ESTROGEN RECEPTOR (ER): Positive, strong immunoreactivity in >95% of tumor cells PROGESTERONE RECEPTOR ([place]): Positive, moderate to strong immunoreactivity in 75% of tumor cells HER2/EMMA IHC: Negative (score 0, no membranous staining) KI67 IHC: 20-25% B. Right intramammary lymph node, 11:00, 11 cm, biopsy: * Sclerosing fibroadenoma * Lymph node elements are not identified MICROSCOPIC DESCRIPTION Slides are reviewed. All matched controls reacted appropriately. These tests were developed and their performance characteristics determined by [facility]. They may not have been cleared or approved by the U.S. Food and Drug Administration.The FDA has determined that such clearance or approval is not necessary. The above immunohistochemical markers are viewed by the Pathologist. GROSS DESCRIPTION Received in 2 formalin containers labeled with the patient's name and date of . Designated as: A. RT breast are 2 lua-yellow tissue cores, 1.5 cm and 1.9 cm in length by 0.2 cm in diameter. Entirely submitted in 1 cassette. Cold ischemic time: <1-minuteFormalin fixation time: 9 hours, 50 minutesNote: The above times are calculated using the time of 0940 handwritten on the specimen container; no collection time provided on the requisition ([place]). B. RT lymph node are 4 lua-white to yellow, fragmented tissue cores, 0.3 cm to 1.0 cm in length by 0.2 cm in diameter. Entirely submitted in 1 cassette. NM 02/03/2025 CPT:[id number] ADDENDUM ADDENDUM ADDENDUM ADDENDUM ADDENDUM ADDENDUM ADDENDUM ADDENDUM ADDENDUM ADDENDUM ADDENDUM ADDENDUM ADDENDUM 04/01/2025 09:02 ADDENDUM 04/01/2025 09:02 ADDENDUM 04/01/2025 09:02 ADDENDUM 04/01/2025 09:02 ADDENDUM 04/01/2025 09:02 This addendum is added to incorporate an outside pathology report. Oncotype DX Breast Recurrence Score Report - Block A1: Recurrence Score Report: 9 Distant Recurrence Risk at 10 years: 5% Group Average Absolute Chemotherapy Benefit: No apparent chemotherapy benefit (<1%) Please see complete above mentioned consultation report in EMR
--- NOTE | 2025-02-03 08:51 | US_ITS ---
PROCEDURE: US BREAST BIOPSY 1ST LESION 02/03/2025 REASON FOR EXAM: F, Age 69 y/o , RIGHT BREAST MASS Suspicious nodule in the right breast. TECHNIQUE: Procedure Code: [id number] Modality: US Procedure: US BREAST BIOPSY 1ST LESION COMPARISON: Prior exam(s) dating back to January 16, 2025.. FINDINGS: ULTRASOUND: Ultrasound was targeted to the 10 and 11 o'clock position of the right breast. Under direct sonographic guidance, the surgeon performed core biopsies of the right breast nodule as well as the right axilla note. US/US Breast Biopsy 1st Lesion IMPRESSION: OVERALL FINAL ASSESSMENT: BIRADS 11 WAITING PATHOLOGY RECOMMENDATION: Routine annual follow-up in 1 Year Reading Location: [place] [id number]
--- NOTE | 2025-02-03 09:59 | PCM.OPRPT ---
Operative Report (Standard) Operative Information Date of Procedure: 02/03/25 Pre-Operative Diagnosis: Right breast mass and and right intramammary lymph node thickened cortex Post-Operative Diagnosis: Same Surgery/Procedure Performed: Ultrasound-guided right breast mass biopsy and right intramammary lymph node biopsy provider relations representative: No Type of Anesthesia: Local MAC Procedure Start Time: 09:20 Procedure Stop Time: 09:35 Select all DRAINS/GRAFTS/IMPLANTS that apply: None Estimated Blood Loss: <10 cc Specimen collected: Yes Description of specimen(s) removed: 1. right breast mass 10:00 5 cm from the nipple, 2. Right intramammary lymph node 11:00 11 cm from the nipple Description of surgery: Procedure: Right ultrasound-guided core biopsy x 2 Indications: 69year-old female with irregular hypoechoic nodule at 10:00 5 cm from nipple and thickened cortex in the inframammary lymph node at 11:00 11 cm from the nipple. Risk benefits were discussed the patient and she elected to proceed with ultrasound guided core biopsy with clip placement Description of procedure: Patient was brought into the ultrasound room in the right breast was marked. A timeout was completed verifying correct patient, procedure, site, specially, prior to beginning procedure. The right breast was prepped and draped in usual sterile fashion and using local anesthesia was obtained with 1% lidocaine with epi. Blood biopsies done similarly. The lesion was located with the ultrasound. Small incision was made with 11 blade to introduced the BARD MaxCore through the skin. Under ultrasound guidance multiple core samples were obtained using then 14-gauge BARD MaxCore and sent in formalin for pathology. The Bard dual ultra(coil clip in the lymph node and ribbon clip in the breast mass at 10:00) clip was then deployed into the biopsy cavity under ultrasound guidance and a picture was taken. Upon completion procedure hemostasis was obtained and a Steri-Strip and OpSite were placed. Patient was then taken to the mammography suite for clip verification. The clip was verified. The patient tolerated the procedure well and was discharged from the breast imaging department good condition. complications: none Surgical Findings: See operative note Complications Complications: No
== END | disposition home or self-care (01) ==
PROVIDERS: PCP Family Medicine; Referring Provider Surgery; Visit Provider Surgery
DX: R92.8 Other abnormal and inconclusive findings on diagnostic imaging of breast (principal)
CPT/HCPCS: 19083; 19084; 88305; 88341; 88342

== ENCOUNTER 2025-03-04 07:32 | Day surgery (SDC) | payer MEDICARE, OTHER, SELFPAY ==
[2025-03-04] VITALS (13 sets, daily range): BP systolic 105–142; BP diastolic 61–81; PULSE 61–74; RESP 16; TEMP 36.3–36.6; O2SAT 95–100; BMI 24.2
--- OUTSIDE RECORDS SUMMARY | 2025-03-04 07:47 | XMS RPT_ITS | CCD ---
Author Organization [facility] Care Team Providers Care Pearl Diver Name Role Phone Darwin MACIEL, Dr. Alcaraz Primary Care Provider Darwin MACIEL, Dr. Alcaraz Attending Provider Darwin MACIEL, Kieran Referring Provider Unavailable Alexia MACIEL, Dr. Hollingsworth Attending Provider Darwin MACIEL, Dr. Alcaraz Referring Provider Dajuan MACIEL, Dr. Mina Attending Provider Darwin MACIEL, Dr. Alcaraz Referring Provider Darwin MACIEL, Dr. Alcaraz Primary Care Physician Dajuan MACIEL, Dr. Mina Attending Physician Darwin MACIEL, Dr. Alcaraz Attending Physician Iris MACIEL, Dr. Delacruz Attending Physician Dr. Nubia Simmons MD Referring Provider Iris MACIEL, Dr. Delacruz Nurse Practitioner Chas Guzman Attending Unavailable Granados, Kieran Primary Care Unavailable Granados, Kieran Referring Unavailable Granados, Kieran Primary Care Unavailable Granados, Kieran Attending Unavailable Granados, Kieran Primary Care Unavailable Granados, Kieran Attending Unavailable Granados, Kieran Referring Unavailable Granados, Kieran Primary Care Unavailable Granados, Kieran Attending Unavailable Granados, Kieran Referring Unavailable Granados, Kieran Primary Care Unavailable Granados OLS, Kieran Referring Unavailable Granados, Kieran Attending Unavailable Granados, Kieran Primary Care Unavailable Nubia Simmons Attending Unavailable Nubia Simmons Referring Unavailable Granados, Kieran Primary Care Unavailable Gabriele Jean Attending Unavailable Gabriele Jean Attending Unavailable Granados, Kieran Primary Care Unavailable Granados, Kieran Referring Unavailable Darrick Hale Attending Unavailable Granados, Kieran Primary Care Unavailable Granados VSC, Kieran Referring Unavailable Granados, Kieran Primary Care Unavailable Nubia Simmons Consulting Unavailable Nubia Simmons Attending Unavailable Nubia Simmons Referring Unavailable Granados, Kieran Primary Care Unavailable Gabriele Jean Referring Unavailable Wero Slade Attending Unavailable Granados, Kieran Primary Care Unavailable Gabriele Jean Attending Unavailable Granados, Kieran Referring Unavailable Granados, Kieran Primary Care Unavailable Nubia Simmons Attending Unavailable Granados, Kieran Referring Unavailable Granados, Kieran Primary Care Unavailable Wero Slade Attending Unavailable Medications Current Medications Medication Drug Class(es) Dates Sig (Normalized) Sig (Original) calcium acetate 668 mg oral tablet (1 source) Start: 01-28-2025 take 1 tablet by mouth once Cranberry (1 source) Non-Standardized Food Allergenic Extract, Non-Standardized Plant Allergenic Extract Start: 01-28-2025 take 1 capsule by mouth twice daily at mealtime Magnesium (1 source) Start: 01-28-2025 take 1 tablet by mouth once daily XM plus supplement (1 source) Start: 01-28-2025 Completed/Discontinued Medications Medication Drug Class(es) Dates Sig (Normalized) Sig (Original) cholecalciferol 0.05 mg oral capsule (1 source) Vitamin D Start: 01-28-2025 End: 01-28-2025 take 1 capsule by mouth once daily Cholecalciferol (Vitamin D3) 50 mcg (2,000 unit) capsule Discontinued 50 ug PO daily January 28, 2025 12:00am January 28, 2025 10:10am Problems Problem Classification Problem Date Documented Date Episodic/Chronic Cancer of breast (2 sources) Malignant neoplasm of upper-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; Translations: [Malignant neoplasm of unspecified site of unspecified female breast] Onset: 02-16-2025 Chronic Disorders of lipid metabolism (1 source) Hyperlipidemia, unspecified; Translations: [Hyperlipidemia, unspecified] Onset: 07-23-2024 Chronic Glaucoma (2 sources) Unspecified glaucoma; Translations: [Unspecified glaucoma] Onset: 09-29-2022 Chronic Lymphadenitis (1 source) Lymphadenopathy; Translations: [Enlarged lymph nodes, unspecified] 01-28-2025 Episodic Nonmalignant breast conditions (2 sources) Lump in right breast; Translations: [Unspecified lump in the right breast, unspecified quadrant] 01-28-2025 Episodic Nutritional deficiencies (1 source) Vitamin D deficiency, unspecified; Translations: [Vitamin D deficiency, unspecified] Onset: 11-06-2024 Chronic Osteoporosis (2 sources) Age-related osteoporosis without current pathological fracture; Translations: [Age-related osteoporosis without current pathological fracture] Onset: 07-23-2024 Chronic Other screening for suspected conditions (not mental disorders or infectious disease) (5 sources) Ultrasonography of breast abnormal; Translations: [Other abnormal and inconclusive findings on diagnostic imaging of breast] Onset: 01-13-2025 01-28-2025 Episodic Comment on above: Right breast mass BI -RADS 5 at 10:00 5 cm from nipple, right intramammary node with thickened cortex at 10:00 11 cm from the nipple Residual codes; unclassified (1 source) Estrogen receptor positive status [ER+]; Translations: [Estrogen receptor positive status [ER+]] Onset: 02-19-2025 Episodic Results Test Name Value Interpretation Reference Range Facility Radiation Oncology Visiton 1 04-21-2024 Radiation Oncology Visit [facility] [address] [address] OFFICE VISIT Date of Service: 02/19/25 1306 MR#: [id number] Acct: [id number] Name: MARIANGEL BELL Rep #: [id number] : 1955 From: Wero Slade DO Age/Sex: 69/F Location[place] [facility] [place] Status: Signed Intake Vital Signs 02/16/25 08:08 02/19/25 13:10 Height 5 ft 2 in 5 ft 2 in Weight: 133 lb 6 oz 134 lb 8 oz BMI 24.3 24.5 BP 137/78 H 124/80 H Blood Pressure Location Rt brachial Rt brachial Position Sitting Sitting Respiration 18 16 Pulse 65 79 Pulse Source Monitor Monitor Temp 97.6 F L 97.8 F Temperature Source Temporal Artery Pulse Oximetry (%) 99 97 Oxygen Delivery Method room air room air Intake Is patient in pain?: No Allergies No Known Allergies Allergy (Unverified 02/19/25 13:09) Medications ???Medication ???Instructions ???Recorded ???Confirmed ???Type XM plus supplement PO 01/28/25 02/19/25 History calcium acetate 668 mg (169 mg 668 mg PO ONCE 01/28/25 02/19/25 H istory calcium) tablet cranberry 500 mg capsule 500 mg PO BID 01/28/25 02/19/25 Hi story magnesium 250 mg tablet 250 mg PO QDAY 01/28/25 02/19/25 H istory Have you fallen in the past year?: No PFSH PFSH Medical History Breast mass, right Home Medications ???Medication ???Instructions ???Recorded ???Last Taken ???Type XM plus supplement PO 01/28/25 Unknown History calcium acetate 668 mg (169 mg 668 mg PO ONCE 01/28/25 Unknown Hi story calcium) tablet cranberry 500 mg capsule 500 mg PO BID 01/28/25 Unknown His tory magnesium 250 mg tablet 250 mg PO QDAY 01/28/25 Unknown Hi story Allergy/AdvReac Type Severity Reaction Status Date / Time No Known Allergies Allergy Unverified 02/19/25 13:09 Family History Father Heart disease Brother Heart disease Surgical History S/P left knee surgery Social History Smoking Status: Never smoker alcohol intake: never Referring Provider: Buck Jean MD Diagnosis: Mariangel Bell is a 69 year-old female diagnosed with clinical stage IA (cT1c cN0 Mx) status post bilateral screening mammogram (01/01/2025) right breast ultrasound (01/16/2025), and right breast biopsy (02/03/2025). History of Present Illness: 01/01/2025: Patient completed bilateral screening mammography.??? This demonstrated a stable 8.8 mm nodular density in the deep upper lateral aspect of the right breast with a tissue clip marker seen within from prior biopsy.??? There is a 1 cm irregular nodule in the anterior upper lateral aspect of the right breast, recommend ultrasound.??? BI-RADS Category 0. 01/16/2025: Patient completed right breast ultrasound which demonstrated at the 10 o'clock position 5 cm from the nipple there is an irregular hypoechoic vascular mass with posterior shadowing measuring 1.3 x 1.3 x 1.1 cm which does correlate to the mammogram findings.??? There is also an intramammary lymph node in the right breast at the 10 o'clock position 11 cm the nipple which is also suspicious, recommend tissue sampling. 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 Intramammary LN biopsied as well, pathology consistent with fibroadenoma without lymphatic tissue.??? Radiation Treatment History: No prior history of radiation therapy. No pacemaker. No diagnosis of radiosensitizing comorbidity. Interval History: Patient presents for initial consultation. She has been getting her mammogram regularly and she has had 1 prior biopsy in the right breast. Mammogram this year demonstrated a new abnormality which was biopsied and turned out to be the breast cancer. She denies having breast pain, palpable mass, skin changes. She reports full arm range of motion without tightness or stiffness. She is a never smoker. She denies cough, shortness of breath, chest pain. She denies headaches, vision changes, focal weakness/numbness, nausea/vomiting. Energy level is normal and she is staying active in her daily life. She denies having other problems or concerns at this time. Review of Systems: A 12-point review of systems was completed and was negative except for what is noted in the HPI/Interval History and by the nurse. Physical Exam: Weight: 134 lbs 8 oz ECO KARNOFSKY SCORE: 80% CONSTITUTIONAL: Well-developed, well-nourished, and in no apparent distress. NECK: Supple, no thyromegaly, and non-tender. Trachea midline. No cervical or supraclavicular adenopathy noted. CARDIAC: Regular rat (more content not included)... Normal [facility] Surgery Visit Reporton 02-19 Surgery Visit Report [facility] [address] [place] [address]. [address] [place] [address] OFFICE VISIT Date of Service: 02/19/25 MR#: [id number] Acct: [id number] Name: MARIANGEL BELL Rep #: [id number] : 1955 Provider: Dr. Gabriele gutierrez MD Age/Sex: 69/F Location: [facility] Status: Signed Intake Vital Signs 02/16/25 08:08 02/19/25 13:10 Height 5 ft 2 in 5 ft 2 in Weight: 133 lb 6 oz 134 lb 8 oz BMI 24.3 24.5 BP 137/78 H 124/80 H Blood Pressure Location Rt brachial Rt brachial Position Sitting Sitting Respiration 18 16 Pulse 65 79 Pulse Source Monitor Monitor Temp 97.6 F L 97.8 F Temp Source Temporal Pulse Oximetry (%) 99 97 Oxygen Delivery Method room air room air Intake Visit Reasons: DISCUSS BREAST SX Chief Complaint: discuss breast sx Accompanied by: spouse and friend Is patient in pain?: No Allergies No Known Allergies Allergy (Unverified 02/19/25 13:09) Medications ???Medication ???Instructions ???Recorded ???Confirmed ???Type XM plus supplement PO 01/28/25 02/19/25 History calcium acetate 668 mg (169 mg 668 mg PO ONCE 01/28/25 02/19/25 H istory calcium) tablet cranberry 500 mg capsule 500 mg PO BID 01/28/25 02/19/25 Hi story magnesium 250 mg tablet 250 mg PO QDAY 01/28/25 02/19/25 H istory Have you fallen in the past year?: No PFSH Medical History Breast mass, right Surgical History S/P left knee surgery Family History Father Heart disease Brother Heart disease Social History Smoking Status: Never smoker alcohol intake: never HPI HPI HPI: Patient saw radiation oncology and would like to schedule partial mastectomy with sentinel lymph node biopsy. ROS General General: Yes weight change and fatigue; No appetite, colon cancer, breast cancer or weakness HEENT HEENT: Yes eye injury and eye surgery; No difficulty swallowing, swollen glands or hoarseness Endo Endocrine: No thyroid disease, diabetes mellitus, thyroid cancer, Hair loss, heat intolerance or cold intolerance Skin Skin: No rash or changing moles Breast Breast: Yes right breast lump, abnormal mammogram and abnormal US; No left breast lump, nipple discharge or breast enlargement Musc Musculoskeletal: Yes arthritis; No back problems, rheumatoid arthritis, gout or joint pain Cardio Cardiovascular: Yes murmur; No pacemaker, heart disease, atrial fibrillation, high blood pressure, heart attack, heart stent, palpitations, shortness of breath with exertion or chest pain Psych Psychiatric: No depression, anxiety or hearing voices Resp Respiratory: No shortness of breath, No sleep apnea, No cough, No COPD, No asthma, No emphysema and No wheezing Gastro Gastrointestinal: No abdominal pain, No nausea or vomiting, No diarrhea, No constipation, No blood in stool, No acid reflux, No hemorrhoids, No ulcers, No gallbladder problem and No black,tarry stools Mejia Hematologic: No blood thinners, No blood disorders, No bleeding, No anemia and No blood clots Neuro Neurologic: No numbness, No tingling and No weakness Exam Const General: cooperative Orientation: alert and oriented x3 HENMT Head: normal to inspection Neck Neck: normal visual inspection and full ROM Chest Chest palpation inspection: normal inspection of the chest Resp Effort Inspection: normal respiratory effort Auscultation: clear to auscultation bilaterally Cardio Rate: regular rate Rhythm: regular rhythm GI Inspection: non-distended Palpation: soft and nontender Skin General: no rashes or lesions noted Neuro General: patient alert and patient oriented x3 Extrem General: full ROM Psych Appearance: grossly normal Mental Status: mental status grossly normal Assessment and Plan Assessment and Plan (1) Breast cancer, right breast: Status: Acute Qualifiers: Breast location: upper outer quadrant of breast Estrogen receptor status: positive Patient sex: female Qualified Code(s): C50.411 - Malignant neoplasm of upper-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 I had seen her earlier in the week and discussed partial mastectomy versus mastectomy with her. After seeing a radiation oncologist she decided to proceed with partial mastectomy with sentinel lymph node biopsy. I once again discussed the procedure in detail as well as the risks including but not limited to bleeding, infection, nerve injury, lymphedema, need for further margins or need for axillary dissection. Patient unders (more content not included)... Normal [facility] Surgery Visit Reporton 02-16 Surgery Visit Report [facility] [address] [place] [address] OFFICE VISIT Date of Service: 02/16/25 MR#: [id number] Acct: [id number] Name: MARIANGEL BELL Rep #: [id number] : 1955 Provider: Dr. Gabriele gutierrez MD Age/Sex: 69/F Location: [facility] Status: Signed Intake Vital Signs 01/28/25 10:11 02/16/25 08:08 Height 5 ft 2 in 5 ft 2 in Weight: 136 lb 133 lb 6 oz BMI 24.8 24.3 BP 142/86 H 137/78 H Blood Pressure Location Rt brachial Rt brachial Position Sitting Sitting Respiration 16 18 Pulse 65 Pulse Source Monitor Temp 97.6 F L Temp Source Temporal Pulse Oximetry (%) 99 Oxygen Delivery Method room air Intake Visit Reasons: BREAST CANCER Chief Complaint: breast cancer Accompanied by: , [id number], friend Is patient in pain?: No Allergies No Known Allergies Allergy (Unverified 02/16/25 08:09) Medications ???Medication ???Instructions ???Recorded ???Confirmed ???Type XM plus supplement PO 01/28/25 02/16/25 History calcium acetate 668 mg (169 mg 668 mg PO ONCE 01/28/25 02/16/25 H istory calcium) tablet cranberry 500 mg capsule 500 mg PO BID 01/28/25 02/16/25 Hi story magnesium 250 mg tablet 250 mg PO QDAY 01/28/25 02/16/25 H istory Have you fallen in the past year?: No PFSH Medical History Breast mass, right Surgical History S/P left knee surgery Family History Father Heart disease Brother Heart disease Social History Smoking Status: Never smoker alcohol intake: never HPI HPI HPI: Patient is a 69-year-old female here with right breast cancer. She is here to discuss surgery. ROS General General: Yes weight change and fatigue; No appetite, colon cancer, breast cancer or weakness HEENT HEENT: Yes eye injury and eye surgery; No difficulty swallowing, swollen glands or hoarseness Endo Endocrine: No thyroid disease, diabetes mellitus, thyroid cancer, Hair loss, heat intolerance or cold intolerance Skin Skin: No rash or changing moles Breast Breast: Yes right breast lump, abnormal mammogram and abnormal US; No left breast lump, nipple discharge or breast enlargement Musc Musculoskeletal: Yes arthritis; No back problems, rheumatoid arthritis, gout or joint pain Cardio Cardiovascular: Yes murmur; No pacemaker, heart disease, atrial fibrillation, high blood pressure, heart attack, heart stent, palpitations, shortness of breath with exertion or chest pain Psych Psychiatric: No depression, anxiety or hearing voices Resp Respiratory: No shortness of breath, No sleep apnea, No cough, No COPD, No asthma, No emphysema and No wheezing Gastro Gastrointestinal: No abdominal pain, No nausea or vomiting, No diarrhea, No constipation, No blood in stool, No acid reflux, No hemorrhoids, No ulcers, No gallbladder problem and No black,tarry stools Mejia Hematologic: No blood thinners, No blood disorders, No bleeding, No anemia and No blood clots Neuro Neurologic: No numbness, No tingling and No weakness Exam Const General: cooperative Orientation: alert and oriented x3 HENPA Head: normal to inspection Neck Neck: normal visual inspection and full ROM Chest Chest palpation inspection: normal inspection of the chest Resp Effort Inspection: normal respiratory effort Auscultation: clear to auscultation bilaterally Cardio Rate: regular rate Rhythm: regular rhythm GI Inspection: non-distended Palpation: soft and nontender Skin General: no rashes or lesions noted Neuro General: patient alert and patient oriented x3 Extrem General: full ROM Psych Appearance: grossly normal Mental Status: mental status grossly normal Assessment and Plan Assessment and Plan (1) Breast cancer, right breast: Status: Acute Qualifiers: Breast location: upper outer quadrant of breast Estrogen receptor status: positive Patient sex: female Qualified Code(s): C50.411 - Malignant neoplasm of upper-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; Z17.0 - Estrogen receptor positive status [ER+] Plan: The patient has breast cancer in the right breast in the upper outer quadrant. I went through her surgical options with her in detail this morning. I discussed partial mastectomy with sentinel lymph node biopsy versus full mastectomy. The patient is very concerned about the radiation and would like to see the radiation oncologist before scheduling surgery. I discussed surgery in detail with the patient including risks. I discussed the risks of bleeding, infection, injury other organs, lymphedema, nerve inj (more content not included)... Normal [facility] Immunohistochemical Stainson 02-03-2025 Immunohistochemical Stains ---- Patient Age/Sex Location Account Attending Physician ---- MARIANGEL BELL 69/F [facility] [id number] Dr. Nubia Simmons MD ---- Specimen: [id number] Received: 02/03/25 Status: PAUL Young Num: [id number] Spec Type: BREAST BX Subm Dr: Dr. Nubia Simmons MD HEADER OPERATION: Right breast biopsy and right breast lymph node biopsy PRE-OP DIAGNOSIS: Right breast lesion, abnormal right lymph node TISSUE SUBMITTED: A- Right breast mass - 10o'clock, 5cm, B- Right intramammary lymph node - 11o'clock, 11cm ---- MICROSCOPIC DIAGNOSIS A. Right breast, 10:00, 5 cm, biopsy: * Invasive ductal carcinoma, Grade 2 (See note) Note: Sections show an invasive ductal carcinoma, Grade 2 (tubules=3, nuclear pleomorphism=2, mitosis=1) measuring 1.2 cm in greatest dimension. The ECadherin stain is strong and diffusely positive (membranous staining) supporting the ductal phenotype. ESTROGEN RECEPTOR (ER): Positive, strong immunoreactivity in >95% of tumor cells PROGESTERONE RECEPTOR (TX): Positive, moderate to strong immunoreactivity in 75% of tumor cells HER2/EMMA IHC: Negative (score 0, no membranous staining) KI67 IHC: 20-25% B. Right intramammary lymph node, 11:00, 11 cm, biopsy: * Sclerosing fibroadenoma * Lymph node elements are not identified MICROSCOPIC DESCRIPTION Slides are reviewed. All matched controls reacted appropriately. These tests were developed and their performance characteristics determined by [facility]. They may not have been cleared or approved by the U.S. Food and Drug Administration.The FDA has determined that such clearance or approval is not necessary. The above immunohistochemical markers are viewed by the Pathologist. GROSS DESCRIPTION Received in 2 formalin containers labeled with the patient's name and date of . Designated as: A. RT breast are 2 lua-yellow tissue cores, 1.5 cm and 1.9 cm in length by 0.2 cm in diameter. Entirely submitted in 1 cassette. Cold ischemic time: <1-minuteFormalin fixation time: 9 hours, 50 minutesNote: The above times are calculated using the time of 0940 handwritten on the specimen container; no collection time provided on the requisition (SC). B. RT lymph node are 4 lua-white to yellow, fragmented tissue cores, 0.3 cm to 1.0 cm in ---- Patient Age/Sex Location Account Attending Physician ---- MARIANGEL BELL 69/F [facility] [id number] Dr. Nubia Simmons MD ---- length by 0.2 cm in diameter. Entirely submitted in 1 cassette. [place] 02/03/2025 CPT:36875v1,69552,8836 0x4 ---- Patient Age/Sex Location Account Attending Physician ---- MARIANGEL BELL Renee 69/F [facility] [id number] Dr. Nubia Simmons MD ---- Signed (signature on file) Dr. Merari Abraham DO 02/04/25 1558 ---- Normal [facility] Comment on above: Performed By: #### P [facility] ####[facility] [id number] [facility] [place], [address] Operative Reporton 5 Operative Report [facility] Medical Records Department [address] [place] [address] Operative Report 02/03/25 0959 MR#: [id number] Acct: [id number] Name: MARIANGEL BELL Rep #: [id number] : 1955 69 From: Nubia Simmons MD PCP: Dr. Kieran Granados MD Status:REG [facility] Location: OPUS Operative Report (Standard) Operative Information Date of Procedure: 02/03/25 Pre-Operative Diagnosis: Right breast mass and and right intramammary lymph node thickened cortex Post-Operative Diagnosis: Same Surgery/Procedure Performed: Ultrasound-guided right breast mass biopsy and right intramammary lymph node biopsy production engineer: No Type of Anesthesia: Local MAC Procedure Start Time: 09:20 Procedure Stop Time: 09:35 Select all DRAINS/GRAFTS/IMPLANTS that apply: None Estimated Blood Loss: <10 cc Specimen collected: Yes Description of specimen(s) removed: 1. right breast mass 10:00 5 cm from the nipple, 2. Right intramammary lymph node 11:00 11 cm from the nipple Description of surgery: Procedure: Right ultrasound-guided core biopsy x 2 Indications: 69year-old female with irregular hypoechoic nodule at 10:00 5 cm from nipple and thickened cortex in the inframammary lymph node at 11:00 11 cm from the nipple. Risk benefits were discussed the patient and she elected to proceed with ultrasound guided core biopsy with clip placement Description of procedure: Patient was brought into the ultrasound room in the right breast was marked. A timeout was completed verifying correct patient, procedure, site, specially, prior to beginning procedure. The right breast was prepped and draped in usual sterile fashion and using local anesthesia was obtained with 1% lidocaine with epi. Blood biopsies done similarly. The lesion was located with the ultrasound. Small incision was made with 11 blade to introduced the BARD MaxCore through the skin. Under ultrasound guidance multiple core samples were obtained using then 14-gauge BARD MaxCore and sent in formalin for pathology. The Bard dual ultra(coil clip in the lymph node and ribbon clip in the breast mass at 10:00) clip was then deployed into the biopsy cavity under ultrasound guidance and a picture was taken. Upon completion procedure hemostasis was obtained and a Steri-Strip and OpSite were placed. Patient was then taken to the mammography suite for clip verification. The clip was verified. The patient tolerated the procedure well and was discharged from the breast imaging department good condition. complications: none Surgical Findings: See operative note Complications Complications: No 02/03/25 1209 Cosigner Signature (if applicable): CC: Dr. Kieran Granados MD; Dr. Nubia Simmons MD Signed Normal [facility] [place] US Breast Biopsy 1st Lesiono n 02-03-2025 US Breast Biopsy 1st Lesion [facility] Imaging Services [address] [place] [id number] US Breast Biopsy 1st Lesion MR#: [id number] Acct: [id number] Name: MARIANGEL BELL Rep #: [id number] : 1955 F 69 From: Brock winter MD PCP: Dr. Kieran Granados MD Status: REG CLI Study: US Breast Biopsy 1st Lesion Date of Exam: 01/15 05/10 Exam# [id number] Ordering Dr: France Barrow PROCEDURE: US BREAST BIOPSY 1ST LESION 02/03/2025 REASON FOR EXAM: F, Age 69 y/o , RIGHT BREAST MASS Suspicious nodule in the right breast. TECHNIQUE: Procedure Code: USBREASTBX Modality: US Procedure: US BREAST BIOPSY 1ST LESION COMPARISON: Prior exam(s) dating back to January 16, 2025.. FINDINGS: ULTRASOUND: Ultrasound was targeted to the 10 and 11 o'clock position of the right breast. Under direct sonographic guidance, the surgeon performed core biopsies of the right breast nodule as well as the right axilla note. US/US Breast Biopsy 1st Lesion IMPRESSION: OVERALL FINAL ASSESSMENT: BIRADS 11 WAITING PATHOLOGY RECOMMENDATION: Routine annual follow-up in 1 Year Reading Location: [place] [address] CC: AYAAN Barrow; Dr. Kieran Granados MD Supervisor Dry Paste: Signed Normal [facility] Surgery Visit Reporton 01-28 Surgery Visit Report [facility] [address] [place] [address]. [address] [place] [id number] OFFICE VISIT Date of Service: 01/28/25 MR#: [id number] Acct: [id number] Name: MARIANGEL BELL Rep #: [id number] : 1955 Provider: Dr. Nubia padilla MD Age/Sex: 69/F Location: [facility] Status: Signed Intake Vital Signs 01/28/25 10:11 Height 5 ft 2 in Weight: 136 lb BMI 24.8 BP 142/86 H Blood Pressure Location Rt brachial Position Sitting Respiration 16 Intake Visit Reasons: BIRADS 5 Chief Complaint: birads 5 Tailing Hand Required: No Is patient in pain?: No Allergies No Known Allergies Allergy (Unverified 01/28/25 10:00) Medications ???Medication ???Instructions ???Recorded ???Confirmed ???Type XM plus supplement PO 01/28/25 History calcium acetate 668 mg (169 mg 668 mg PO ONCE 01/28/25 01/28/25 H istory calcium) tablet cranberry 500 mg capsule 500 mg PO BID 01/28/25 01/28/25 Hi story magnesium 250 mg tablet 250 mg PO QDAY 01/28/25 01/28/25 H istory Have you fallen in the past year?: No PFSH Medical History (Updated 01/28/25 @ 10:[address] Nubia Simmons MD) Breast mass, right Surgical History (Updated 01/28/25 @ 10:11 by Ania Rodriguez) S/P left knee surgery Family History (Updated 01/28/25 @ 10:11 by Ania Rodriguez) Father Heart disease Brother Heart disease Social History (Updated 01/28/25 @ 10:11 by Ania Rodriguez) Smoking Status: Never smoker alcohol intake: never HPI HPI HPI: 69-year-old female presents due to abnormal mammogram and ultrasound of the right breast. Patient previously had a stereotactic biopsy for fibroadenoma in [address] Naidu. Patient denies any nipple discharge, area has been a little tender after having the mammogram and ultrasound, but also denies any masses on exam. See ultrasound report below Age of first child 20, no family history of breast cancer, 1 previous breast biopsy 2003???fibroadenoma right breast. PROCEDURE: BREAST LIMITED RIGHT UNILATERAL 01/16/2025 REASON FOR EXAM: F, Age 69 y/o , ABD MAMM COMPARISON: Mammogram 01/01/2025 on 10/10/2023. TECHNIQUE: Procedure Code: USBRSTLIMIT Modality: US Procedure: BREAST LIMITED UNILATERAL FINDINGS: Follow-up examination performed for the irregular right breast mass seen on examination of 01/01/2025. On the present examination, in the right breast at 10 o'clock 5 cm from the nipple there is an irregular hypoechoic vascular mass with posterior shadowing measuring 1.3 x 1.3 x 1.1 cm. This correlates to the mammographic finding. Follow-up examination performed for the mass in the upper-outer right breast at posterior depth seen on examination of 01/01/2025. On the present examination in the right breast at 10 o'clock 11 cm from the nipple there is a mildly enlarged intramammary lymph node with diffuse cortical thickening measuring 1.0 x 0.8 x 0.6 cm with cortical thickness of 0.3 cm. This correlates to the mammographic finding. The remainder of the right breast was imaged demonstrating no additional suspicious sonographic findings. There is a normal-appearing right axillary lymph node. US/Breast Limited Unilateral IMPRESSION: 1. Irregular right breast mass at 10 o'clock 5 cm from the nipple is highly suggestive of malignancy. Recommend tissue sampling with ultrasound-guided core needle biopsy for further evaluation. 2. Abnormal intramammary lymph node in the right breast at 10 o'clock 11 cm from the nipple is suspicious. Recommend tissue sampling with ultrasound-guided core needle biopsy for further evaluation. BI-RADS 5: HIGHLY SUGGESTIVE OF MALIGNANCY. ROS General General: Yes weight change and fatigue; No appetite, colon cancer, breast cancer or weakness HEENT HEENT: Yes eye injury and eye surgery; No difficulty swallowing, swollen glands or hoarseness Endo Endocrine: No thyroid disease, diabetes mellitus, thyroid cancer, Hair loss, heat intolerance or cold intolerance Skin Skin: No rash or changing moles Breast Breast: Yes right breast lump, abnormal mammogram and abnormal US; No left breast lump, nipple discharge or breast enlargement Musc Musculoskeletal: Yes arthritis; No back problems, rheumatoid arthritis, gout or joint pain Cardio Cardiovascular: Yes murmur; No pacemaker, heart disease, atrial fibrillation, high blood pressure, heart attack, heart stent, palpitations, shortness of breath with exertion or chest pain Psych Psychiatric: No depression, anxiety or hearing voices Resp Respiratory: No shortness of breath, No sleep apnea, No cough, No COPD, No asthma, No emphysema and No wheezing Gastro Gastrointestinal: No abdominal pain, No nausea or vomiting, No diarrhea, No constipation, No blood (more content not included)... Normal [facility] Breast Limited Unilateralon 01-16-2025 Breast Limited Unilateral [facility] Imaging Services [address] [place] [place], [place] [address] Breast Limited Unilateral MR#: [id number] Acct: [id number] Name: MARIANGEL BELL Rep #: [id number] : 1955 F 69 From: Neha Meyer MD PCP: Dr. Kieran Granados MD Status: REG CLI Study: Breast Limited Unilateral Date of Exam: Exam# [id number] Ordering Dr: Kieran Granados MD PROCEDURE: BREAST LIMITED UNILATERAL 01/16/2025 REASON FOR EXAM: F, Age 69 y/o , ABD MAMM COMPARISON: Mammogram 01/01/2025 on 10/10/2023. TECHNIQUE: Procedure Code: USBRSTLIMIT Modality: US Procedure: BREAST LIMITED UNILATERAL FINDINGS: Follow-up examination performed for the irregular right breast mass seen on examination of 01/01/2025. On the present examination, in the right breast at 10 o'clock 5 cm from the nipple there is an irregular hypoechoic vascular mass with posterior shadowing measuring 1.3 x 1.3 x 1.1 cm. This correlates to the mammographic finding. Follow-up examination performed for the mass in the upper-outer right breast at posterior depth seen on examination of 01/01/2025. On the present examination in the right breast at 10 o'clock 11 cm from the nipple there is a mildly enlarged intramammary lymph node with diffuse cortical thickening measuring 1.0 x 0.8 x 0.6 cm with cortical thickness of 0.3 cm. This correlates to the mammographic finding. The remainder of the right breast was imaged demonstrating no additional suspicious sonographic findings. There is a normal-appearing right axillary lymph node. US/Breast Limited Unilateral IMPRESSION: 1. Irregular right breast mass at 10 o'clock 5 cm from the nipple is highly suggestive of malignancy. Recommend tissue sampling with ultrasound-guided core needle biopsy for further evaluation. 2. Abnormal intramammary lymph node in the right breast at 10 o'clock 11 cm from the nipple is suspicious. Recommend tissue sampling with ultrasound-guided core needle biopsy for further evaluation. BI-RADS 5: HIGHLY SUGGESTIVE OF MALIGNANCY. RECOMMENDATION: Biopsy Recommended Reading Location: [facility] CC: Dr. Kieran Granados MD Supervisor Dry Paste: Signed Normal [facility] Breast imaging reportOrdered By: Brock Hollingsworth on 01-01-2025 Study report [facility] Imaging Services [address] [place], [place] [id number] SCRN MAMM (CAD)W/JUAN ANTONIO BILAT MR#: [id number] Acct: [id number] Name: MARIANGEL BELL Rep #: [id number] : 1955 F 69 From: Terrell Hollingsworth MD PCP: Dr. Kieran Granados MD Status: REG CLI Study:SCRN MAMM (CAD)W/JUAN ANTONIO BILAT Date of Exa m: 01/01/25 Exam# [id number] Ordering Dr: Suman Granados MD EXAM: SCRN MAMM (CAD)W/JUAN ANTONIO BILAT DATE: 01/01/2025 CLINICAL HISTORY: F, Age 69 y/o , SCREENING No family history. Prior right breast biopsy. TECHNIQUE: Procedure Code: BISMWCADBTOM Modality: MG Procedure: SCRN MAMM (CAD)W/JUAN ANTONIO BILAT COMPARISON: Prior exam(s) dated October 10, 2023.. FINDINGS: TISSUE DENSITY: The breasts are heterogeneously dense, which may obscure small masses. Bilateral Breast Mammographic Findings: Stable 8.8 mm nodular density in the deep upper lateral aspect of the right breast. A tissue clip marker is seen within it from prior biopsy. There is a 1 cm irregular nodule in the anterior upper lateral aspect of the right breast. Sonographic correlation recommended. BI/SCRN MAMM (CAD)W/JUAN ANTONIO BILAT IMPRESSION: New 1.2 cm spiculated nodule in the anterior upper lateral aspect of the right breast as described. Sonographic correlation recommended. OVERALL FINAL ASSESSMENT BI-RADS 0: INCOMPLETE - NEED ADDITIONAL IMAGING EVALUATION. RECOMMENDATION: Ultrasound Recommended A letter with findings and recommendations will be mailed to the patient. Reading Location: [facility] CC: Dr. Kieran Granados MD ~ Supervisor Dry Paste: Signed [facility] SCRN MAMM (CAD)W/JUAN ANTONIO BILATo n 01-01-2025 SCRN MAMM (CAD)W/JUAN ANTONIO BILAT [facility] Imaging Services [address] [place] [address] SCRN MAMM (CAD)W/JUAN ANTONIO BILAT MR#: [id number] Acct: [id number] Name: MARIANGEL BELL Rep #: [id number] : 1955 F 69 From: Brock winter MD PCP: Dr. Kieran Granados MD Status: REG CLI Study: SCRN MAMM (CAD)W/JUAN ANTONIO BILAT Date of Exam: 12/15 12/08 Exam# [id number] Ordering Dr: Kieran Granados MD EXAM: SCRN MAMM (CAD)W/JUAN ANTONIO BILAT DATE: 01/01/2025 CLINICAL HISTORY: F, Age 69 y/o , SCREENING No family history. Prior right breast biopsy. TECHNIQUE: Procedure Code: BISMWCADBTOM Modality: MG Procedure: SCRN MAMM (CAD)W/JUAN ANTONIO BILAT COMPARISON: Prior exam(s) dated October 10, 2023.. FINDINGS: TISSUE DENSITY: The breasts are heterogeneously dense, which may obscure small masses. Bilateral Breast Mammographic Findings: Stable 8.8 mm nodular density in the deep upper lateral aspect of the right breast. A tissue clip marker is seen within it from prior biopsy. There is a 1 cm irregular nodule in the anterior upper lateral aspect of the right breast. Sonographic correlation recommended. BI/SCRN MAMM (CAD)W/JUAN ANTONIO BILAT IMPRESSION: New 1.2 cm spiculated nodule in the anterior upper lateral aspect of the right breast as described. Sonographic correlation recommended. OVERALL FINAL ASSESSMENT BI-RADS 0: INCOMPLETE - NEED ADDITIONAL IMAGING EVALUATION. RECOMMENDATION: Ultrasound Recommended A letter with findings and recommendations will be mailed to the patient. Reading Location: [place] [address] CC: Dr. Kieran Granados MD Supervisor Dry Paste: Signed Normal [facility] Absolute lymphocyte countOrd ered By: Kieran Granados on 10-31-2024 Lymphocytes Auto (Unsp spec) [#/Vol] 1.78 10*3/uL 0.83-4.51 [facility] Absolute neutrophil countOrd ered By: Kieran Granados on 10-31-2024 Neutrophils (Bld) [#/Vol] 2.1 10*3/uL 2.0-7.7 [facility] Anion gap in Serum or Plasma Ordered By: Kieran Granados on 10-31-2024 Anion gap [Moles/Vol] 13 mmol/L 5- [facility] Automated lymphocyte count a s percentage of total leukocytesOrdered By: Kieran Granados on 10-31-2024 Lymphocytes/100 WBC Auto (Unsp spec) 39.6 % - [facility] BUN/creatinine ratioOrdered By: Kieran Granados on 10-31-2024 Urea nitrogen/Creatinine [Mass ratio] 14.0 mg/mg - [facility] Basophil percentageOrdered B y: Kieran Granados on 10-31-2024 Basophils/100 WBC (Bld) 0.9 % 0-1 [facility] Bilirubin, totalOrdered By: Kieran Granados on 10-31-2024 Bilirubin [Mass/Vol] 2.31 mg/dL High 0.00-1.30 [facility] CBC W/Diff, Automatedon 10-14 Absolute Lymph 1.78 X10 3/uL Normal 0.83-4.51 [facility] Comment on above: Order Comment: Order Date: 10/31/24 Order Info: 0184-1 - CBCD Performed By: #### L 503.6550, L100.0100, L500.4050 #### [facility] [address] [place], [address] Absolute Neut 2.1 X10 3/uL Normal 2.0-7.7 [facility] Comment on above: Order Comment: Order Date: 10/31/24 Order Info: 0184-1 - CBCD Performed By: #### L 503.6550, L100.0100, L500.4050 #### [facility] [address] [place], [address] Basophils/100 WBC (Bld) 0.9 % Normal 0-1 [facility] Comment on above: Order Comment: Order Date: 10/31/24 Order Info: 0184-1 - CBCD Performed By: #### L 503.6550, L100.0100, L500.4050 #### [facility] [address] [place], [address] Eosinophils/100 WBC (Bld) 1.1 % Normal 0-5 [facility] Comment on above: Order Comment: Order Date: 10/31/24 Order Info: 0184-1 - CBCD Performed By: #### L 503.6550, L100.0100, L500.4050 #### [facility] [address] [place], [address] Erythrocyte distribution width (RBC) [Ratio] 12.6 % Normal 11.6-14.6 [facility] Comment on above: Order Comment: Order Date: 10/31/24 Order Info: 0184-1 - CBCD Performed By: #### L 503.6550, L100.0100, L500.4050 #### [facility] [address] [place], [address] Hematocrit (Bld) [Volume fraction] 39.2 % Normal 37-47 [facility] Comment on above: Order Comment: Order Date: 10/31/24 Order Info: 0184-1 - CBCD Performed By: #### L 503.6550, L100.0100, L500.4050 #### [facility] [address] [place], [address] Hemoglobin (Bld) [Mass/Vol] 12.9 g/dL Normal 12.0-15.0 [facility] Comment on above: Order Comment: Order Date: 10/31/24 Order Info: 0184-1 - CBCD Performed By: #### L 503.6550, L100.0100, L500.4050 #### [facility] [address] [place], [address] IG% 0.200 Normal 0.0-0.9 [facility] Comment on above: Order Comment: Order Date: 10/31/24 Order Info: 0184- - CBCD Result Comment: IG% - Immature Granulocytes (promyelocytes, myelocytes and metamyelocytes) > 1% indicates that a LEFT SHIFT is Present. Performed By: #### L 503.6550, L100.0100, L500.4050 #### [facility] [address] [place], [address] Lymphocytes/100 WBC (Bld) 39.6 % Normal 19-41 [facility] Comment on above: Order Comment: Order Date: 10/31/24 Order Info: 018- - CBCD Performed By: #### L 503.6550, L100.0100, L500.4050 #### [facility] [address] [place], [address] MCH (RBC) [Entitic mass] 29.5 pg Normal 27.0-32.0 [facility] Comment on above: Order Comment: Order Date: 10/31/24 Order Info: 018- - CBCD Performed By: #### L 503.6550, L100.0100, L500.4050 #### [facility] [address] [place], [address] MCHC (RBC) [Mass/Vol] 32.9 g/dL Normal 32-36 [facility] Comment on above: Order Comment: Order Date: 10/31/24 Order Info: 018- - CBCD Performed By: #### L 503.6550, L100.0100, L500.4050 #### [facility] [address] [place], [address] MCV (RBC) [Entitic vol] 89.5 fL Normal 81-99 [facility] Comment on above: Order Comment: Order Date: 10/31/24 Order Info: 018- - CBCD Performed By: #### L 503.6550, L100.0100, L500.4050 #### [facility] [address] [place], [address] Monocytes/100 WBC (Bld) 10.5 % High 0-10 [facility] Comment on above: Order Comment: Order Date: 10/31/24 Order Info: 0184-1 - CBCD Performed By: #### L 503.6550, L100.0100, L500.4050 #### [facility] [address] [place], [address] Neutrophils/100 WBC (Bld) 47.7 % Normal 47-70 [facility] Comment on above: Order Comment: Order Date: 10/31/24 Order Info: 0184-1 - CBCD Performed By: #### L 503.6550, L100.0100, L500.4050 #### [facility] [address] [place], [address] Nucleated RBC (Bld) [#/Vol] 0 10*3/uL Normal 0-5 [facility] Comment on above: Order Comment: Order Date: 10/31/24 Order Info: 0184-1 - CBCD Performed By: #### L 503.6550, L100.0100, L500.4050 #### [facility] [address] [place], [address] Platelet mean volume (Bld) [Entitic vol] 9.9 fL Normal 6.2-12.0 [facility] Comment on above: Order Comment: Order Date: 10/31/24 Order Info: 0184-1 - CBCD Performed By: #### L 503.6550, L100.0100, L500.4050 #### [facility] [address] [place], [address] Platelets (Bld) [#/Vol] 346 10*3/uL Normal 150-450 [facility] Comment on above: Order Comment: Order Date: 10/31/24 Order Info: 0184-1 - CBCD Performed By: #### L 503.6550, L100.0100, L500.4050 #### [facility] [address] [place], [address] RBC (Bld) [#/Vol] 4.38 10*6/uL Normal 4.2-5.4 [facility] Comment on above: Order Comment: Order Date: 10/31/24 Order Info: 0184-1 - CBCD Performed By: #### L 503.6550, L100.0100, L500.4050 #### [facility] [address] [place], [address] RDW SD 41.4 fl Normal 35.1-43.9 [facility] Comment on above: Order Comment: Order Date: 10/31/24 Order Info: 0184- - CBCD Performed By: #### L 503.6550, L100.0100, L500.4050 #### [facility] [address] [place], [address] WBC (Bld) [#/Vol] 4.5 10*3/uL Normal 4.4-11.[address] [facility] Comment on above: Order Comment: Order Date: 10/31/24 Order Info: 0184- - CBCD Performed By: #### L 503.6550, L100.0100, L500.4050 #### [facility] [address] [place], [address] Carbon dioxide, total [Moles /volume] in Central venous bloodOrdered By: Kieran Granados on 10-31-2024 CO2 [Moles/Vol] 24.9 mmol/L 21.0-32.0 [facility] Chloride assayOrdered By: Suman Granados on 10-31-2024 Chloride [Moles/Vol] 101 mmol/L 98-108 [facility] Comprehensive Metabolic Prof ilon 10-31-2024 Albumin [Mass/Vol] 4.6 g/dL Normal 3.4-4.[address] [facility] Comment on above: Order Comment: Order Date: 10/31/24 Order Info: 0786-1 - CMP Order Info: 2275-07 - RISSA Performed By: #### L 503.6550, L100.0100, L500.4050 #### [facility] [address] [place], [address] Albumin/Globulin [Mass ratio] 1.9 {ratio} Normal 0.9-2.4 [facility] Comment on above: Order Comment: Order Date: 10/31/24 Order Info: 0786-1 - CMP Order Info: 2275-07 - RISSA Performed By: #### L 503.6550, L100.0100, L500.4050 #### [facility] [address] [place], [address] ALK PHOS 46 U/L Normal 35-104 [facility] Comment on above: Order Comment: Order Date: 10/31/24 Order Info: 0786-1 - CMP Order Info: 2275-07 - RISSA Performed By: #### L 503.6550, L100.0100, L500.4050 #### [facility] [address] [place], [address] ALT [Catalytic activity/Vol] 14 U/L Normal <=34 [facility] Comment on above: Order Comment: Order Date: 10/31/24 Order Info: 0786-1 - CMP Order Info: 2275-07 - RISSA Performed By: #### L 503.6550, L100.0100, L500.4050 #### [facility] [address] [place], [address] AST [Catalytic activity/Vol] 24 U/L Normal <=31 [facility] Comment on above: Order Comment: Order Date: 10/31/24 Order Info: 0786-1 - CMP Order Info: 2275-07 - RISSA Performed By: #### L 503.6550, L100.0100, L500.4050 #### [facility] [address] [place], [address] Bilirubin [Mass/Vol] 2.31 mg/dL High 0.00-1.30 [facility] Comment on above: Order Comment: Order Date: 10/31/24 Order Info: 0786-1 - CMP Order Info: 2275-4 - RISSA Performed By: #### L 503.6550, L100.0100, L500.4050 #### [facility] [address] [place], [address] BUN/CRE 14.0 RATIO Normal 10-20 [facility] Comment on above: Order Comment: Order Date: 10/31/24 Order Info: 0786-1 - CMP Order Info: 4 - RISSA Performed By: #### L 503.6550, L100.0100, L500.4050 #### [facility] [address] [place], [address] Calcium [Mass/Vol] 9.7 mg/dL Normal 7.6-11.[address] [facility] Comment on above: Order Comment: Order Date: 10/31/24 Order Info: 0786-1 - CMP Order Info: 4 - RISSA Performed By: #### L 503.6550, L100.0100, L500.4050 #### [facility] [address] [place], [address] Chloride [Moles/Vol] 101 mmol/L Normal 98-108 [facility] Comment on above: Order Comment: Order Date: 10/31/24 Order Info: 0786-1 - CMP Order Info: 4 - RISSA Performed By: #### L 503.6550, L100.0100, L500.4050 #### [facility] [address] [place], [address] CO2 [Moles/Vol] 24.9 mmol/L Normal 21.0-32.0 [facility] Comment on above: Order Comment: Order Date: 10/31/24 Order Info: 0786-1 - CMP Order Info: 6-4 - RISSA Performed By: #### L 503.6550, L100.0100, L500.4050 #### [facility] [address] [place], [address] Creatinine [Mass/Vol] 0.63 mg/dL Low 0.70-1.20 [facility] Comment on above: Order Comment: Order Date: 10/31/24 Order Info: 07861 - CMP Order Info: 2275-07 - RISSA Performed By: #### L 503.6550, L100.0100, L500.4050 #### [facility] [address] [place], [address] GAP 13 Normal 5-15 [facility] Comment on above: Order Comment: Order Date: 10/31/24 Order Info: 07 - [facility] Order Info: 2275-07 - RISSA Performed By: #### L 503.6550, L100.0100, L500.4050 #### [facility] [address] [place], [address] GFR/1.73 sq M.predicted among non-blacks MDRD (S/P/Bld) [Vol rate/Area] 96 mL/min/{1.73_m2} Normal >60 [facility] Comment on above: Order Comment: Order Date: 10/31/24 Order Info: 0786 - [facility] Order Info: 2275-07 - RISSA Result Comment: mL/m in/1.73m2 CKD-EPI Creatinine Equation (2020) Performed By: #### L 503.6550, L100.0100, L500.4050 #### [facility] [address] [place], [address] Globulin (S) [Mass/Vol] 2.5 g/dL Normal 2.2-4.2 [facility] Comment on above: Order Comment: Order Date: 10/31/24 Order Info: 0786-1 - CMP Order Info: 2275-07 - RISSA Performed By: #### L 503.6550, L100.0100, L500.4050 #### [facility] [address] [place], [address] Glucose [Mass/Vol] 90 mg/dL Normal 70-[address] [facility] Comment on above: Order Comment: Order Date: 10/31/24 Order Info: 0786-1 - CMP Order Info: 4 - RISSA Performed By: #### L 503.6550, L100.0100, L500.4050 #### [facility] [address] [place], [address] Potassium [Moles/Vol] 4.0 mmol/L Normal 3.3-5.1 [facility] Comment on above: Order Comment: Order Date: 10/31/24 Order Info: 0786- - CMP Order Info: 4 - RISSA Performed By: #### L 503.6550, L100.0100, L500.4050 #### [facility] [address] [place], [address] Sodium [Moles/Vol] 139 mmol/L Normal 133-[address] [facility] Comment on above: Order Comment: Order Date: 10/31/24 Order Info: 0786- - CMP Order Info: 2275-07 - RISSA Performed By: #### L 503.6550, L100.0100, L500.4050 #### [facility] [address] [place], [address] T PROT 7.1 g/dL Normal 5.9-8.4 [facility] Comment on above: Order Comment: Order Date: 10/31/24 Order Info: 0786- - CMP Order Info: 2275-07 - RISSA Performed By: #### L 503.6550, L100.0100, L500.4050 #### [facility] [address] [place], [address] Urea nitrogen [Mass/Vol] 9 mg/dL Normal 4-19 [facility] Comment on above: Order Comment: Order Date: 10/31/24 Order Info: 0786- - CMP Order Info: 2276-4 - RISSA Performed By: #### L 503.6550, L100.0100, L500.4050 #### [facility] [place] [facility] [address] [place], [address] Eosinophil percentageOrdered By: Kieran Granados on 10-31-2024 Eosinophils/100 WBC (Bld) 1.1 % 0-5 [facility] Erythrocyte distribution wid th ratioOrdered By: Kieran Granados on 10-31-2024 Erythrocyte distribution width (RBC) [Ratio] 12.6 % 11.6-14.6 [facility] Erythrocyte distribution wid th standard deviationOrdered By: Kieran Granados on 10-31-2024 Erythrocyte distribution width (RBC) [Ratio] 41.4 fl 35.1-43.9 [facility] Ferritinon 10-31-2024 Ferritin [Mass/Vol] 111 ng/mL Normal 22-378 [facility] Comment on above: Order Comment: Order Date: 10/31/24 Order Info: 0786-1 - [facility] Order Info: 2276-4 - RISSA Performed By: #### L 503.6550, L100.0100, L500.4050 #### [facility] [place] [facility] [address] [place], [place], [address] Glomerular filtration rate ( GFR) estimation/1.73 sq m using serum, plasma, or whole bOrdered By: Kieran Granados on 10-31-2024 GFR/1.73 sq M.predicted among non-blacks MDRD (S/P/Bld) [Vol rate/Area] 96 mL/min/{1.73_m2} >60 [facility] Comment on above: mL/min/1.73m2 CKD-EP I Creatinine Equation (2020) Hematocrit Auto (Bld) [Volum e fraction]Ordered By: Kieran Granados on 10-31-2024 Hematocrit (Bld) [Volume fraction] 39.2 % 37-47 [facility] Hemoglobin measurementOrdere d By: Kieran Granados on 10-31-2024 Hemoglobin (Bld) [Mass/Vol] 12.9 g/dL 12.0-15.0 [facility] Immature granulocytes/100 WB C Auto (Bld)Ordered By: Kieran Granados on 10-31-2024 Immature granulocytes/100 WBC (Bld) 0.200 % 0.0-0.9 [facility] Comment on above: IG% - Immature Granu locytes (promyelocytes, myelocytes and metamyelocytes) > 1% indicates that a LEFT SHIFT is Present. Laboratory - Chemistry and C hemistry - challengeOrdered By: Kieran Granados on 10-31-2024 AST [Catalytic activity/Vol] 24 U/L <32 [facility] MCV (mean corpuscular volume ) determinationOrdered By: Kieran Granados on 10-31-2024 MCV (RBC) [Entitic vol] 89.5 fL 81-99 [facility] Mean corpuscular hemoglobin (MCH) determinationOrdered By: Kieran Granados on 10-31-2024 MCH (RBC) [Entitic mass] 29.5 pg 27.0-32.0 [facility] Mean corpuscular hemoglobin concentration (MCHC) determinationOrdered By: Kieran Granados on 10-31-2024 MCHC (RBC) [Mass/Vol] 32.9 g/dL 32-36 [facility] Mean platelet volume determi nationOrdered By: Kieran Granados on 10-31-2024 Platelet mean volume (Bld) [Entitic vol] 9.9 fL 6.2-12.0 [facility] Monocyte percentageOrdered B y: Kieran Granados on 10-31-2024 Monocytes/100 WBC (Bld) 10.5 % High 0-10 [facility] Neutrophil percentageOrdered By: Kieran Granados on 10-31-2024 Neutrophils/100 WBC (Bld) 47.7 % 47-70 [facility] Nucleated red blood cell per centageOrdered By: Kieran Granados on 10-31-2024 Nucleated RBC/100 WBC (Bld) [Ratio] 0 % 0-5 [facility] Platelet countOrdered By: Suman Granados on 10-31-2024 Platelets (Bld) [#/Vol] 346 10*3/uL 150-450 [facility] Potassium measurement (mass/ volume)Ordered By: Kieran Granados on 10-31-2024 Potassium (Unsp spec) [Mass/Vol] 4.0 mmol/L 3.3-5.1 [facility] RBC Auto (Bld) [#/Vol]Ordere d By: Kieran Granados on 10-31-2024 RBC (Bld) [#/Vol] 4.38 10*6/uL 4.2-5.4 [facility] Serum creatinine measurement (mass/volume)Ordered By: Kieran Granados on 10-31-2024 Creatinine [Mass/Vol] 0.63 mg/dL Low 0.70-1.20 [facility] Serum globulin measurementOr dered By: Kieran Granados on 10-31-2024 Globulin (S) [Mass/Vol] 2.5 g/dL 2.2-4.2 [facility] Serum glucose measurement (m ass/volume)Ordered By: Kieran Granados on 10-31-2024 Glucose [Mass/Vol] 90 mg/dL 70-[address] [facility] Serum or plasma alanine conley otransferase (ALT) measurementOrdered By: Kieran Granados on 10-31-2024 ALT [Catalytic activity/Vol] 14 U/L <35 [facility] Serum or plasma albumin triny urement (mass/volume)Ordered By: Kieran Granados on 10-31-2024 Albumin [Mass/Vol] 4.6 g/dL 3.4-4.[address] [facility] Serum or plasma albumin/glob ulin mass ratioOrdered By: Kieran Granados on 10-31-2024 Albumin/Globulin [Mass ratio] 1.9 {ratio} 0.9-2.4 [facility] Serum or plasma alkaline young sphatase measurementOrdered By: Kieran Granados on 10-31-2024 ALP [Catalytic activity/Vol] 46 U/L 35-104 [facility] Serum or plasma calcium triny urement (mass/volume)Ordered By: Kieran Granados on 10-31-2024 Calcium [Mass/Vol] 9.7 mg/dL 7.6-11.[address] [facility] Serum or plasma ferritin hernandez surement (mass/volume)Ordered By: Kieran Granados on 10-31-2024 Ferritin [Mass/Vol] 111 ng/mL 22-378 [facility] Serum or plasma urea nitroge n measurement (mass/volume)Ordered By: Kieran Granados on 10-31-2024 Urea nitrogen [Mass/Vol] 9 mg/dL 4-19 [facility] Sodium levelOrdered By: Kieran Granados on 10-31-2024 Sodium [Moles/Vol] 139 mmol/L 133-[address] [facility] Total proteinOrdered By: Claire Granados on 10-31-2024 Protein [Mass/Vol] 7.1 g/dL 5.9-8.[address] [facility] Vitamin D,25 Hydroxyon 10-31 Vitamin D 25-OH 60.3 ng/mL Normal 30-100 [facility] Comment on above: Order Comment: Order Date: 10/31/24 Order Info: 0786-1 - CMP Order Info: 2276-4 - RISSA Result Comment: Kimmy min D Status Deficiency: <20 ng/mL (50nmol/L) Insufficiency: 20-30 ng/mL (50-75 nmol/L) Sufficiency: 30-100 ng/mL (75-250 nmol/L) Toxicity: >100 ng/mL (>250 nmol/L) Performed By: #### L 506.1001 #### [facility] [address] [facility] [place], [address] White blood cell (WBC) count Ordered By: Kieran Granados on 10-31-2024 WBC (Bld) [#/Vol] 4.5 10*3/uL 4.4-11.[address] [facility] Coronary Angiography CTon Coronary Angiography CT [facility] Imaging Services [address] [place] [address] 07/23/24 1647 MR#: [id number] Acct: [id number] Name: MARIANGEL BELL Rep #: [id number] : 1955 68 From: Darrick Hale MD [...] Granados MD; Kieran Granados MD Signed Normal [facility] Limited Chest CT Cardiac Onl yon 07-23-[address] Cardiac Only [facility] Imaging Services [address] [place] [address] Cardiac Only MR#: [id number] Acct: [id number] Name: MARIANGEL BELL Rep #: [id number] : 1955 F 68 From: Kieran Sanders MD PCP: Dr. Kieran Granados MD Status: REG REF Study: Limited Chest CT Cardiac Only Date of Exam: Exam# [id number] Ordering Dr: Kieran Granados MD PROCEDURE: LIMITED [...] evaluation. No other suspicious findings. Reading Location: [place] [address] CC: Dr. Kieran Granados MD Supervisor Dry Paste: Signed Normal [facility] Protein Electroph, Son 03-21 Albumin [Mass/Vol] 4.0 g/dL Normal 2.9-4.[address] [facility] Comment on above: Order Comment: Order Date: 03/20/24 Order Info: 0060-1 - PROEL Performed By: #### L 3100.3450 #### [facility] [place] [facility] [address] [facility] [place], [place], [id number] [phone] Albumin/Globulin [Mass ratio] 1.5 {ratio} Normal 0.7-1.7 [facility] Comment on above: Order Comment: Order Date: 03/20/24 Order Info: 0060-1 - PROEL Performed By: #### L 3100.3450 #### [facility] [place] [facility] [address] [place], [address] ALPHA-1 GLOBUL 0.2 g/dL Normal 0.0-0.4 [facility] Comment on above: Order Comment: Order Date: 03/20/24 Order Info: 0060-1 - PROEL Performed By: #### L 3100.3450 #### [facility] [address] [place], [address] ALPHA-2 GLOBUL 0.7 g/dL Normal 0.4-1.0 [facility] Comment on above: Order Comment: Order Date: 03/20/24 Order Info: 0060-1 - PROEL Performed By: #### L 3100.3450 #### [facility] [place] [facility] [address] [place], [address] BETA GLOBULIN 1.0 g/dL Normal 0.7-1.3 [facility] Comment on above: Order Comment: Order Date: 03/20/24 Order Info: 0060-1 - PROEL Performed By: #### L 3100.3450 #### [facility] [address] [place], [address] GAMMA GLOBULIN 0.8 g/dL Normal 0.4-1.8 [facility] Comment on above: Order Comment: Order Date: 03/20/24 Order Info: 0060-1 - PROEL Performed By: #### L 3100.3450 #### [facility] [address] [place], [address] Globulin (S) [Mass/Vol] 2.6 g/dL Normal 2.2-3.9 [facility] Comment on above: Order Comment: Order Date: 03/20/24 Order Info: 0060-1 - PROEL Performed By: #### L 3100.3450 #### [facility] [place] [facility] [address] [place], [address] INTERPRETATION Comment Normal . [facility] Comment on above: Order Comment: Order Date: 03/20/24 Order Info: 0060-1 - PROEL Result Comment: Prot ein electrophoresis scan will follow via computer, mail, or clerical clerk delivery. Performed By: #### L 3100.3450 #### [facility] [address] [place], [address] M-SPIKE Not Observed Normal Not Observed [facility] Comment on above: Order Comment: Order Date: 03/20/24 Order Info: 006- - PROEL Performed By: #### L 0178.2190 #### [facility] [address] [place], [address] NOTE: Comment Normal . [facility] Comment on above: Order Comment: Order Date: 03/20/24 Order Info: 0060- - PROEL Result Comment: The SPE pattern appears unremarkable. Evidence of monoclonal protein is not apparent. Performed at: [address] [id number] Statistical Developer: Teddy Duong PhD, Phone: [phone] Performed By: #### L 9241.2960 #### [facility] [address] [place], [address] Protein [Mass/Vol] 6.6 g/dL Normal 6.0-8.[address] [facility] Comment on above: Order Comment: Order Date: 03/20/24 Order Info: 006 - PROEL Performed By: #### L 3894.5380 #### [facility] [address] [place], [address] CBC W/Diff, Automatedon 12-0 Absolute Lymph 1.89 X10 3/uL Normal 0.83-4.51 [facility] Comment on above: Order Comment: Order Date: 03/20/24 Order Info: 0184-1 - CBCD Performed By: #### L 100.0100 #### [facility] [address] [place], [address] Absolute Neut 2.2 X10 3/uL Normal 2.0-7.7 [facility] Comment on above: Order Comment: Order Date: 03/20/24 Order Info: 0184-1 - CBCD Performed By: #### L 100.0100 #### [facility] [address] [place], [address] Basophils/100 WBC (Bld) 1.4 % High 0-1 [facility] Comment on above: Order Comment: Order Date: 03/20/24 Order Info: 0184-1 - CBCD Performed By: #### L 100.0100 #### [facility] [address] [place], [address] Eosinophils/100 WBC (Bld) 2.2 % Normal 0-5 [facility] Comment on above: Order Comment: Order Date: 03/20/24 Order Info: 0184-1 - CBCD Performed By: #### L 100.0100 #### [facility] [address] [place], [address] Erythrocyte distribution width (RBC) [Ratio] 12.5 % Normal 11.6-14.6 [facility] Comment on above: Order Comment: Order Date: 03/20/24 Order Info: 018-1 - CBCD Performed By: #### L 100.0100 #### [facility] [address] [place], [address] Hematocrit (Bld) [Volume fraction] 38.4 % Normal 37-47 [facility] Comment on above: Order Comment: Order Date: 03/20/24 Order Info: 0184- - CBCD Performed By: #### L 100.0100 #### [facility] [address] [place], [address] Hemoglobin (Bld) [Mass/Vol] 12.7 g/dL Normal 12.0-15.0 [facility] Comment on above: Order Comment: Order Date: 03/20/24 Order Info: 0184-1 - CBCD Performed By: #### L 100.0100 #### [facility] [address] [place], [address] IG% 0.200 Normal 0.0-0.9 [facility] Comment on above: Order Comment: Order Date: 03/20/24 Order Info: 0184-1 - CBCD Result Comment: IG% - Immature Granulocytes (promyelocytes, myelocytes and metamyelocytes) > 1% indicates that a LEFT SHIFT is Present. Performed By: #### L 100.0100 #### [facility] [address] [place], [address] Lymphocytes/100 WBC (Bld) 38.6 % Normal 19-41 [facility] Comment on above: Order Comment: Order Date: 03/20/24 Order Info: 0184-1 - CBCD Performed By: #### L 100.0100 #### [facility] [address] [place], [address] MCH (RBC) [Entitic mass] 30.2 pg Normal 27.0-32.0 [facility] Comment on above: Order Comment: Order Date: 03/20/24 Order Info: 018- - CBCD Performed By: #### L 100.0100 #### [facility] [address] [place], [address] MCHC (RBC) [Mass/Vol] 33.1 g/dL Normal 32-36 [facility] Comment on above: Order Comment: Order Date: 03/20/24 Order Info: 018-1 - CBCD Performed By: #### L 100.0100 #### [facility] [address] [place], [address] MCV (RBC) [Entitic vol] 91.2 fL Normal 81-99 [facility] Comment on above: Order Comment: Order Date: 03/20/24 Order Info: 0184-1 - CBCD Performed By: #### L 100.0100 #### [facility] [address] [place], [address] Monocytes/100 WBC (Bld) 12.2 % High 0-10 [facility] Comment on above: Order Comment: Order Date: 03/20/24 Order Info: 0184-1 - CBCD Performed By: #### L 100.0100 #### [facility] [address] [place], [address] Neutrophils/100 WBC (Bld) 45.4 % Low 47-70 [facility] Comment on above: Order Comment: Order Date: 03/20/24 Order Info: 0184-1 - CBCD Performed By: #### L 100.0100 #### [facility] [address] [place], [address] Nucleated RBC (Bld) [#/Vol] 0 10*3/uL Normal 0-5 [facility] Comment on above: Order Comment: Order Date: 03/20/24 Order Info: 018- - CBCD Performed By: #### L 100.0100 #### [facility] [address] [place], [address] Platelet mean volume (Bld) [Entitic vol] 10.0 fL Normal 6.2-12.0 [facility] Comment on above: Order Comment: Order Date: 03/20/24 Order Info: 018- - CBCD Performed By: #### L 100.0100 #### [facility] [address] [place], [address] Platelets (Bld) [#/Vol] 320 10*3/uL Normal 150-450 [facility] Comment on above: Order Comment: Order Date: 03/20/24 Order Info: 018-1 - CBCD Performed By: #### L 100.0100 #### [facility] [address] [place], [address] RBC (Bld) [#/Vol] 4.21 10*6/uL Normal 4.2-5.4 [facility] Comment on above: Order Comment: Order Date: 03/20/24 Order Info: 0184-1 - CBCD Performed By: #### L 100.0100 #### [facility] [address] [place], [address] RDW SD 41.6 fl Normal 35.1-43.9 [facility] Comment on above: Order Comment: Order Date: 03/20/24 Order Info: 0184-1 - CBCD Performed By: #### L 100.0100 #### [facility] [address] [place], [address] WBC (Bld) [#/Vol] 4.9 10*3/uL Normal 4.4-11.[address] [facility] Comment on above: Order Comment: Order Date: 03/20/24 Order Info: 0184-1 - CBCD Performed By: #### L 100.0100 #### [facility] [address] [place], [address] Comprehensive Metabolic Prof ilon 03-20-2024 Albumin [Mass/Vol] 3.8 g/dL Normal 3.2-5.[address] [facility] Comment on above: Order Comment: Order Date: 03/20/24 Order Info: 0786-1 - CMP Order Info: 3016-3 - TSH Performed By: #### L 500.4050 #### [facility] [address] [place], [address] Albumin/Globulin [Mass ratio] 1.3 {ratio} Normal 0.9-2.4 [facility] Comment on above: Order Comment: Order Date: 03/20/24 Order Info: 0786-1 - CMP Order Info: 3016-3 - TSH Performed By: #### L 500.4050 #### [facility] [address] [place], [address] ALK P 45 U/L Normal 45-117 [facility] Comment on above: Order Comment: Order Date: 03/20/24 Order Info: 0786-1 - CMP Order Info: 3016-3 - TSH Performed By: #### L 500.4050 #### [facility] [address] [place], [address] ALT [Catalytic activity/Vol] 35 U/L Normal 13-56 [facility] Comment on above: Order Comment: Order Date: 03/20/24 Order Info: 0786-1 - CMP Order Info: 3 - TSH Performed By: #### L 500.4050 #### [facility] [address] [place], [address] AST [Catalytic activity/Vol] 27 U/L Normal 15-37 [facility] Comment on above: Order Comment: Order Date: 03/20/24 Order Info: 785-1 - CMP Order Info: 3 - TSH Performed By: #### L 500.4050 #### [facility] [address] [place], [address] Bilirubin [Mass/Vol] 1.70 mg/dL High 0.20-1.00 [facility] Comment on above: Order Comment: Order Date: 03/20/24 Order Info: 785-1 - CMP Order Info: 3015-06 - TSH Result Comment: For patients on eltrombopag therapy, use of Dimension Rupert TBIL is not recommended. Performed By: #### L 500.4050 #### [facility] [address] [place], [address] BUN/CRE 18.4 RATIO Normal 10-20 [facility] Comment on above: Order Comment: Order Date: 03/20/24 Order Info: 0786-1 - CMP Order Info: 3015-06 - TSH Performed By: #### L 500.4050 #### [facility] [address] [place], [address] CA,Total 9.1 mg/dL Normal 8.5-10.1 [facility] Comment on above: Order Comment: Order Date: 03/20/24 Order Info: 0786-1 - CMP Order Info: 3 - TSH Performed By: #### L 500.4050 #### [facility] [address] [place], [address] Chloride [Moles/Vol] 107 mmol/L Normal 98-107 [facility] Comment on above: Order Comment: Order Date: 03/20/24 Order Info: 0786-1 - CMP Order Info: 3016 - TSH Performed By: #### L 500.4050 #### [facility] [address] [place], [address] CO2 [Moles/Vol] 26.0 mmol/L Normal 21.0-32.0 [facility] Comment on above: Order Comment: Order Date: 03/20/24 Order Info: 0786- - CMP Order Info: 3016 - TSH Performed By: #### L 500.4050 #### [facility] [address] [place], [address] Creatinine [Mass/Vol] 0.60 mg/dL Normal 0.55-1.02 [facility] Comment on above: Order Comment: Order Date: 03/20/24 Order Info: 0786 - CMP Order Info: 3015-06 - TSH Result Comment: The validity of the calculated GFR GFRAA in patients over 70 years has not been determined. Clinical correlation is essential. Performed By: #### L 500.4050 #### [facility] [address] [place], [address] EST GFR - AA 128 mL/min Normal >60 [facility] Comment on above: Order Comment: Order Date: 03/20/24 Order Info: 0786- - CMP Order Info: 3015-06 - TSH Result Comment: Afri can Martiniquais GFR Calc Performed By: #### L 500.4050 #### [facility] [address] [place], [address] GAP 8 Normal 5-15 [facility] Comment on above: Order Comment: Order Date: 03/20/24 Order Info: 0786-1 - CMP Order Info: 3016 - TSH Performed By: #### L 500.4050 #### [facility] [address] [place], [address] GFR/1.73 sq M.predicted among non-blacks MDRD (S/P/Bld) [Vol rate/Area] 106 mL/min/{1.73_m2} Normal >60 [facility] Comment on above: Order Comment: Order Date: 03/20/24 Order Info: 0786-1 - CMP Order Info: 3015-3 - TSH Result Comment: Non- GFR Calc Performed By: #### L 500.4050 #### [facility] [address] [place], [address] Globulin (S) [Mass/Vol] 2.9 g/dL Normal 2.2-4.2 [facility] Comment on above: Order Comment: Order Date: 03/20/24 Order Info: 07 - CMP Order Info: 3 - TSH Performed By: #### L 500.4050 #### [facility] [address] [place], [address] Glucose [Mass/Vol] 90 mg/dL Normal 74-[address] [facility] Comment on above: Order Comment: Order Date: 03/20/24 Order Info: 0786 - CMP Order Info: 3015-06 - TSH Performed By: #### L 500.4050 #### [facility] [address] [place], [address] Potassium [Moles/Vol] 3.7 mmol/L Normal 3.5-5.1 [facility] Comment on above: Order Comment: Order Date: 03/20/24 Order Info: 0786-1 - CMP Order Info: 30109-16 - TSH Performed By: #### L 500.4050 #### [facility] [address] [place], [address] Sodium [Moles/Vol] 141 mmol/L Normal 136-[address] [facility] Comment on above: Order Comment: Order Date: 03/20/24 Order Info: 0786-1 - CMP Order Info: 3 - TSH Performed By: #### L 500.4050 #### [facility] [address] [place], [place], [address] T PROT 6.7 g/dL Normal 6.4-8.2 [facility] Comment on above: Order Comment: Order Date: 03/20/24 Order Info: 0786-1 - CMP Order Info: 3016-3 - TSH Performed By: #### L 500.4050 #### [facility] [address] [place], [place], [address] Urea nitrogen [Mass/Vol] 11 mg/dL Normal 7-18 [facility] Comment on above: Order Comment: Order Date: 03/20/24 Order Info: 0786-1 - CMP Order Info: 3016-3 - TSH Performed By: #### L 500.4050 #### [facility] [address] [place], [address] Thyroid Stim Hormone (TSH)on 03-20-2024 TSH 1.010 uIU/mL Normal 0.358-3.740 [facility] Comment on above: Order Comment: Order Date: 03/20/24 Order Info: 0786-1 - [facility] Order Info: 3016-3 - TSH Performed By: #### L 501.9520 #### [facility] [address] [place], [place], [address] Culture, urineOrdered By: Idania Kuhn on 11-17-2022 Bacteria identified Cx Nom (U) Mixed Gram Pos & Gram Neg Org [facility] Absolute lymphocyte counton 08-12-2021 Lymphocytes Auto (Unsp spec) [#/Vol] 2.01 10*3/uL 0.83-4.51 [facility] Work Phone: Basophil percentageon 2021 Basophils/100 WBC (Bld) 1.1 % 0-1 [facility] Work Phone: Bilirubin [Mass/Vol] 1.40 mg/dL 0.20-1.00 [facility] Work Phone: Comment on above: For patients on eltr ombopag therapy, use of Dimension Rupert TBIL is not recommended. Eosinophils/100 WBC (Bld) 0.9 % 0-5 [facility] Work Phone: Neutrophils (Bld) [#/Vol] 2.8 10*3/uL 2.0-7.7 [facility] Work Phone: Neutrophils/100 WBC (Bld) 50.6 % 47-70 [facility] Work Phone: Protein [Mass/Vol] 7.5 g/dL 6.4-8.[address] [facility] Work Phone: WBC (Bld) [#/Vol] 5.5 10*3/uL 4.4-11.[address] [facility] Work Phone: Blood erythrocytes count (nu mber/volume)on 08-12-2021 RBC (Bld) [#/Vol] 4.38 10*6/uL 4.2-5.4 [facility] Work Phone: Blood hemoglobin measurement (mass/volume)on 08-12-2021 Hemoglobin (Bld) [Mass/Vol] 12.9 g/dL 12.0-15.0 [facility] Work Phone: Blood lymphocytes/100 leukoc yteson 08-12-2021 Lymphocytes/100 WBC (Bld) 36.6 % 19-41 [facility] Work Phone: Blood monocytes/100 leukocyt eson 08-12-2021 Monocytes/100 WBC (Bld) 10.6 % 0-10 [facility] Work Phone: Blood platelet mean volumeon 08-12-2021 Platelet mean volume (Bld) [Entitic vol] 10.5 fL 6.2-12.0 [facility] [place] Work Phone: Determination of erythrocyte mean corpuscular volume (MCV)on 08-12-2021 MCV (RBC) [Entitic vol] 92.0 fL 81-99 [facility] Work Phone: Direct bilirubinon Bilirubin.direct [Mass/Vol] 0.25 mg/dL 0.00-0.30 [facility] [place] Work Phone: Hematocrit Auto (Bld) [Volum e fraction]on 08-12-2021 Hematocrit (Bld) [Volume fraction] 40.3 % 37-47 [facility] [place] Work Phone: Laboratory - Chemistry and C hemistry - challengeon 08-12-2021 ALP [Catalytic activity/Vol] 54 U/L 45-117 [facility] [place] Work Phone: ALT [Catalytic activity/Vol] 24 U/L 13-56 [facility] Work Phone: Free T4 [Mass/Vol] 1.12 ng/dL 0.76-1.[address] [facility] Work Phone: Globulin (S) [Mass/Vol] 3.2 g/dL 2.2-4.2 [facility] Work Phone: Laboratory - Hematology and Cell countson 08-12-2021 Erythrocyte distribution width (RBC) [Entitic vol] 42.3 fL 35.1-43.9 [facility] Work Phone: Erythrocyte distribution width (RBC) [Ratio] 12.3 % 11.6-14.6 [facility] Work Phone: Immature granulocytes/100 WBC (Bld) 0.200 % 0.0-0.9 [facility] Work Phone: Comment on above: IG% - Immature Granu locytes (promyelocytes, myelocytes and metamyelocytes) > 1% indicates that a LEFT SHIFT is Present. MCH (RBC) [Entitic mass] 29.5 pg 27.0-32.0 [facility] Work Phone: Nucleated RBC/100 WBC (Bld) [Ratio] 0 % 0-5 [facility] Work Phone: MCHC Auto (RBC) [Mass/Vol]on 08-12-2021 MCHC (RBC) [Mass/Vol] 32.0 g/dL 32-36 [facility] Work Phone: No Panel Informationon 08-12 Anti-Nuclear Antibody Screen Positive Negative [facility] Work Phone: Comment on above: Performed at: [address] [id number] Director: Teddy Duong PhD, Phone: [phone] Thyroid Stimulating Hormone (TSH) 0.91 uIU/mL 0.358-3.74 [facility] Work Phone: Platelets bldon 08-12-2021 Platelets (Bld) [#/Vol] 323 10*3/uL 150-450 [facility] Work Phone: Serum or plasma albumin triny urement (mass/volume)on 08-12-2021 Albumin [Mass/Vol] 4.3 g/dL 3.2-5.[address] [facility] Work Phone: Serum rheumatoid factor dete ctionon 08-12-2021 Rheumatoid factor Ql (S) < 10.0 IU/mL <15 [facility] Work Phone: Thin prep Papanicolaou smear with manual screeningon 08-12-2021 Thin prep Papanicolaou smear with manual screening 20 U/L 15-37 [facility] Work Phone: .Auto Diffon 10-01-2019 Ammonia (P) [Mass/Vol] 0.70 10 3/mcL Normal 0.15-1.00 [facility] ([place]) Comment on above: Performed By: #### G BAYRON PEREZ ADIFF, CBC #### [facility] [address] [place] [address] #### BMP #### [address] [address] Basophils (Bld) [#/Vol] 0.00 10 3/mcL Normal 0.00-0.19 [facility] ([place]) Comment on above: Performed By: #### G FR, ANEU, ADIFF, CBC #### [address] [address] #### BMP #### [address] [address] Basophils/100 WBC (Bld) 0.3 % Normal 0.0-2.5 [facility] ([place]) Comment on above: Performed By: #### G FR, ANEU, ADIFF, CBC #### [address] [address] #### BMP #### [address] [address] Eosinophils (Bld) [#/Vol] 0.00 10 3/mcL Normal 0.00-0.40 [facility] ([place]) Comment on above: Performed By: #### G FR, ANEU, ADIFF, CBC #### [address] [address] #### BMP #### [address] [address] Eosinophils/100 WBC (Bld) 0.0 % Normal 0.0-7.0 [facility] ([place]) Comment on above: Performed By: #### G FR, ANEU, ADIFF, CBC #### [address] [address] #### BMP #### [address] [address] Lymphocytes (Bld) [#/Vol] 1.10 10 3/mcL Normal 0.77-3.85 [facility] ([place]) Comment on above: Performed By: #### G FR, ANEU, ADIFF, CBC #### [address] [address] #### BMP #### [address] [address] Lymphocytes/100 WBC (Bld) 12.6 % Normal 10.0-50.0 [facility] ([place] Comment on above: Performed By: #### G FR, ANEU, ADIFF, CBC #### [address] [address] #### BMP #### [address] [address] Monocytes/100 WBC (Bld) 7.2 % Normal 1.7-13.0 [facility] ([place] Comment on above: Performed By: #### G FR, ANEU, ADIFF, CBC #### [address] [address] #### BMP #### [address] [address] Neutrophils/100 WBC (Bld) 79.9 % Normal 37.0-80.0 [facility] ([place]) Comment on above: Performed By: #### G FR, ANEU, ADIFF, CBC #### [address] [address] #### BMP #### [address] [address] .GFRon 10-01-2019 GFR 116 ml/min/1.73sqm Normal [facility] ([place]) Comment on above: Result Comment: GFR Population [...] #### A EMMA, ADIFF, CBC, GFR #### [address] [address] #### BMP #### [address] [address] GFR Non- 95 ml/min/1.73sqm Normal [facility] ([place] Comment on above: Result Comment: GFR Population [...] #### A EMMA, ADIFF, CBC, GFR #### [place] [address] #### BMP #### [address] [address] .NEUABSon 10-01-2019 Neutrophils (Bld) [#/Vol] 7.20 10 3/mcL High 2.85-6.16 [facility] ([place] Comment on above: Performed By: #### G FR, ANEU, ADIFF, CBC #### [place] [address] #### BMP #### [place] [address] BMPon 10-01-2019 Calcium [Mass/Vol] 8.7 mg/dL Normal 8.4-10.2 [facility] ([place]) Comment on above: Performed By: #### A EMMA, ADIFF, CBC, GFR #### [place] [address] #### BMP #### [address] [address] Chloride [Moles/Vol] 103 mmol/L Normal 98-107 [facility] ([place]) Comment on above: Performed By: #### A EMMA, ADIFF, CBC, GFR #### [place] [address] #### BMP #### [address] [address] CO2 [Moles/Vol] 27 mmol/L Normal 23-31 [facility] ([place] Comment on above: Performed By: #### A EMMA, ADIFF, CBC, GFR #### [address] [address] #### BMP #### [address] [address] Creatinine [Mass/Vol] 0.63 mg/dL Normal 0.55-1.02 [facility] ([place]) Comment on above: Performed By: #### A EMMA, ADIFF, CBC, GFR #### [address] [address] #### BMP #### [address] [address] Electrolyte Balance 9.0 mEq/L Normal [facility] ([place]) Comment on above: Performed By: #### A EMMA, ADIFF, CBC, GFR #### [place] [address] #### BMP #### [address] [address] Glucose [Mass/Vol] 114 mg/dL Normal 80-115 [facility] ([place] Comment on above: Performed By: #### A EMMA, ADIFF, CBC, GFR #### [place] [address] #### BMP #### [address] [address] Potassium [Moles/Vol] 4.5 mmol/L Normal 3.5-5.1 [facility] ([place] Comment on above: Performed By: #### A EMMA, ADIFF, CBC, GFR #### [address] [address] #### BMP #### [address] [address] Sodium [Moles/Vol] 139 mmol/L Normal 136-145 [facility] ([place]) Comment on above: Performed By: #### A EMMA, ADIFF, CBC, GFR #### [place] [address] #### BMP #### [address] [address] Urea nitrogen [Mass/Vol] 7 mg/dL Normal 7-18 [facility] ([place] Comment on above: Performed By: #### A EMMA, ADIFF, CBC, GFR #### [address] [address] #### BMP #### [address] [address] Urea nitrogen/Creatinine [Mass ratio] 11 ratio Normal 7-27 [facility] ([place] Comment on above: Performed By: #### A EMMA, ADIFF, CBC, GFR #### [address] [address] #### BMP #### [address] [address] CBCon 10-01-2019 Erythrocyte distribution width (RBC) [Ratio] 12.8 % Normal 11.5-14.5 [facility] ([place] Comment on above: Performed By: #### A EMMA, ADIFF, CBC, GFR #### [address] [address] #### BMP #### [address] [address] Hematocrit (Bld) [Volume fraction] 37.3 % Normal 37.0-47.0 [facility] ([place] Comment on above: Performed By: #### A EMMA, ADIFF, CBC, GFR #### [address] [address] #### BMP #### [address] [address] Hemoglobin (Bld) [Mass/Vol] 12.5 G/dL Normal 12.0-16.0 [facility] ([place] Comment on above: Performed By: #### A EMMA, ADIFF, CBC, GFR #### [address] [address] #### BMP #### [address] [address] MCH (RBC) [Entitic mass] 30.4 pg Normal 27.0-31.2 [facility] ([place] Comment on above: Performed By: #### A EMMA, ADIFF, CBC, GFR #### [place] [address] #### BMP #### [address] [address] MCHC (RBC) [Mass/Vol] 33.5 G/dL Normal 33.0-37.0 [facility] ([place] Comment on above: Performed By: #### A EMMA, ADIFF, CBC, GFR #### [place] [address] #### BMP #### [address] [address] MCV (RBC) [Entitic vol] 90.7 fL Normal 80.0-94.0 [facility] ([place] Comment on above: Performed By: #### A EMMA, ADIFF, CBC, GFR #### [place] [address] #### BMP #### [address] [address] Platelet mean volume (Bld) [Entitic vol] 8.7 fL Normal 7.4-10.4 [facility] ([place] Comment on above: Performed By: #### A EMMA, ADIFF, CBC, GFR #### [place] [address] #### BMP #### [address] [address] Platelets (Bld) [#/Vol] 318 10 3/mcL Normal 130-400 [facility] ([place] Comment on above: Performed By: #### A EMMA, ADIFF, CBC, GFR #### [place] [address] #### BMP #### [address] [address] RBC (Bld) [#/Vol] 4.11 10 6/mcL Low 4.20-5.40 [facility] ([place] Comment on above: Performed By: #### A EMMA, ADIFF, CBC, GFR #### [address] [address] #### BMP #### [address] [address] WBC (Bld) [#/Vol] 9.00 10 3/mcL Normal 4.60-10.80 [facility] ([place] Comment on above: Performed By: #### A EMMA, ADIFF, CBC, GFR #### [address] [address] #### BMP #### [place] [address] XR KNEE 1 OR 2 VIEWS LEFTon [...] Date: 09/30/2019 4:20:55 PM Ordering Provider:Osman Batres [facility] ([place] .Auto Diffon 09-19-2019 Ammonia (P) [Mass/Vol] 0.50 10 3/mcL Normal 0.15-1.00 [facility] ([place] Comment on above: Performed By: #### G FR, ANEU, ADIFF, CBC #### [address] [address] #### BMP #### [address] [address] Basophils (Bld) [#/Vol] 0.10 10 3/mcL Normal 0.00-0.19 [facility] ([place] Comment on above: Performed By: #### G FR, ANEU, ADIFF, CBC #### [address] [address] #### BMP #### [address] [address] Basophils/100 WBC (Bld) 1.0 % Normal 0.0-2.5 [facility] ([place]) Comment on above: Performed By: #### G FR, ANEU, ADIFF, CBC #### [address] [address] #### BMP #### [address] [address] Eosinophils (Bld) [#/Vol] 0.00 10 3/mcL Normal 0.00-0.40 [facility] ([place] Comment on above: Performed By: #### Yeny FR, ANEU, ADIFF, CBC #### [address] [address] #### BMP #### [address] [address] Eosinophils/100 WBC (Bld) 0.6 % Normal 0.0-7.0 [facility] ([place] Comment on above: Performed By: #### Yeny FR, ANEU, ADIFF, CBC #### [address] [address] #### BMP #### [address] [address] Lymphocytes (Bld) [#/Vol] 1.60 10 3/mcL Normal 0.77-3.85 [facility] ([place]) Comment on above: Performed By: #### G FR, ANEU, ADIFF, CBC #### [address] [address] #### BMP #### [address] [address] Lymphocytes/100 WBC (Bld) 28.8 % Normal 10.0-50.0 [facility] ([place] Comment on above: Performed By: #### G FR, ANEU, ADIFF, CBC #### [address] [address] #### BMP #### [address] [address] Monocytes/100 WBC (Bld) 9.0 % Normal 1.7-13.0 [facility] ([place] Comment on above: Performed By: #### G FR, ANEU, ADIFF, CBC #### [address] [address] #### BMP #### [address] [address] Neutrophils/100 WBC (Bld) 60.6 % Normal 37.0-80.0 [facility] ([place]) Comment on above: Performed By: #### G FR, ANEU, ADIFF, CBC #### [address] [address] #### BMP #### [address] [address] .GFRon 09-19-2019 GFR 112 ml/min/1.73sqm Normal [facility] ([place]) Comment on above: Result Comment: GFR Population [...] #### G FR, ANEU, ADIFF, CBC #### [address] [address] #### BMP #### [address] [address] GFR Non- 92 ml/min/1.73sqm Normal [facility] ([place]) Comment on above: Result Comment: GFR Population [...] 15 mL/min/1.73 square meters Performed By: #### Yeny PEREZ, RYAN VERMA, CBC #### [place] [address] #### BMP #### [address] [address] .NEUABSon 09-19-2019 Neutrophils (Bld) [#/Vol] 3.30 10 3/mcL Normal 2.85-6.16 [facility] ([place] Comment on above: Performed By: #### BAYRON JIMENES ADIFF, CBC #### [place] [address] #### BMP #### [place] [address] BMPon 09-19-2019 Calcium [Mass/Vol] 8.7 mg/dL Normal 8.4-10.2 [facility] ([place]) Comment on above: Performed By: #### Yeny PEREZ, BAYRON ADIFF, CBC #### [place] [address] #### BMP #### [address] [address] Chloride [Moles/Vol] 102 mmol/L Normal 98-107 [facility] ([place]) Comment on above: Performed By: #### Yeny FR, ANEU, ADIFF, CBC #### [place] [address] #### BMP #### [address] [address] CO2 [Moles/Vol] 29 mmol/L Normal 23-31 [facility] ([place] Comment on above: Performed By: #### G FR, ANEU, ADIFF, CBC #### [address] [address] #### BMP #### [address] [address] Creatinine [Mass/Vol] 0.65 mg/dL Normal 0.55-1.02 [facility] ([place] Comment on above: Performed By: #### G FR, ANEU, ADIFF, CBC #### [address] [address] #### BMP #### [address] [address] Electrolyte Balance 9.0 mEq/L Normal [facility] ([place]) Comment on above: Performed By: #### Yeny FR, ANEU, ADIFF, CBC #### [address] [address] #### BMP #### [address] [address] Glucose [Mass/Vol] 96 mg/dL Normal 80-115 [facility] ([place]) Comment on above: Performed By: #### G FR, ANEU, ADIFF, CBC #### [address] [address] #### BMP #### [address] [address] Potassium [Moles/Vol] 4.2 mmol/L Normal 3.5-5.1 [facility] ([place] Comment on above: Performed By: #### G FR, ANEU, ADIFF, CBC #### [address] [address] #### BMP #### [address] [address] Sodium [Moles/Vol] 140 mmol/L Normal 136-145 [facility] ([place]) Comment on above: Performed By: #### G FR, ANEU, ADIFF, CBC #### [address] [address] #### BMP #### [address] [address] Urea nitrogen [Mass/Vol] 11 mg/dL Normal 7-18 [facility] ([place] Comment on above: Performed By: #### G FR, ANEU, ADIFF, CBC #### [address] [address] #### BMP #### [address] [address] Urea nitrogen/Creatinine [Mass ratio] 17 ratio Normal 7-27 [facility] ([place] Comment on above: Performed By: #### G FR, ANEU, ADIFF, CBC #### [address] [address] #### BMP #### [address] [address] CBCon 09-19-2019 Erythrocyte distribution width (RBC) [Ratio] 12.7 % Normal 11.5-14.5 [facility] ([place] Comment on above: Order Comment: Pre-A dmission Testing Performed By: #### G FR, ANEU, ADIFF, CBC #### [address] [address] #### BMP #### [address] [address] Hematocrit (Bld) [Volume fraction] 38.9 % Normal 37.0-47.0 [facility] ([place] Comment on above: Order Comment: Pre-A dmission Testing Performed By: #### G FR, ANEU, ADIFF, CBC #### [address] [address] #### BMP #### [address] [address] Hemoglobin (Bld) [Mass/Vol] 12.9 G/dL Normal 12.0-16.0 [facility] ([place] Comment on above: Order Comment: Pre-A dmission Testing Performed By: #### G FR, ANEU, ADIFF, CBC #### [address] [address] #### BMP #### [address] [address] MCH (RBC) [Entitic mass] 30.0 pg Normal 27.0-31.2 [facility] ([place] Comment on above: Order Comment: Pre-A dmission Testing Performed By: #### G FR, ANEU, ADIFF, CBC #### [place] [address] #### BMP #### [address] [address] MCHC (RBC) [Mass/Vol] 33.1 G/dL Normal 33.0-37.0 [facility] ([place]) Comment on above: Order Comment: Pre-A dmission Testing Performed By: #### G FR, ANEU, ADIFF, CBC #### [place] [address] #### BMP #### [address] [address] MCV (RBC) [Entitic vol] 90.8 fL Normal 80.0-94.0 [facility] ([place]) Comment on above: Order Comment: Pre-A dmission Testing Performed By: #### G FR, ANEU, ADIFF, CBC #### [place] [address] #### BMP #### [address] [address] Platelet mean volume (Bld) [Entitic vol] 8.2 fL Normal 7.4-10.4 [facility] ([place] Comment on above: Order Comment: Pre-A dmission Testing Performed By: #### G FR, ANEU, ADIFF, CBC #### [place] [address] #### BMP #### [address] [address] Platelets (Bld) [#/Vol] 355 10 3/mcL Normal 130-400 [facility] ([place]) Comment on above: Order Comment: Pre-A dmission Testing Performed By: #### G FR, ANEU, ADIFF, CBC #### [address] [address] #### BMP #### [address] [address] RBC (Bld) [#/Vol] 4.28 10 6/mcL Normal 4.20-5.40 [facility] ([place]) Comment on above: Order Comment: Pre-A dmission Testing Performed By: #### G FR, ANEU, ADIFF, CBC #### [address] [address] #### BMP #### [address] [address] WBC (Bld) [#/Vol] 5.40 10 3/mcL Normal 4.60-10.80 [facility] ([place]) Comment on above: Order Comment: Pre-A dmission Testing Performed By: #### G FR, ANEU, ADIFF, CBC #### [address] [address] #### BMP #### [address] [address] [address] KNEE W/O CONTRAST LEFTon 09-19-2019 CT [...] joint space narrowing and osteophyte formation. A qhusj-eb-[id number] effusion is present. Subchondral cyst formation is noted in the acetabulum. The LEFT hip and ankle are intact. IMPRESSION: Tricompartmental osteoarthritis LEFT knee. Interpreted By: Lizz Gonzalez MD Preliminary Report By: Lizz Gonzalez MD Electronically Signed By: Lizz Gonzalez MD Dictated Date: 09/19/2019 1:46:06 PM Prelim Date: 09/19/2019 1:46:06 PM Sign Date: 09/19/2019 1:49:18 PM Ordering Provider:Osman [facility] ([place]) Vital Signs Date Time Vital Sign Value Performing Clinician Mine roy 01-28-2025 10:11-0400 Body height 157.[address] Kieran Granados MD Work Phone: [facility] 01-28-2025 10:11-0400 Body mass index (BMI) [Ratio] 24.8 kg/m2 Dr. Kieran Granados MD Work Phone: [facility] 01-28-2025 10:11-0400 Body weight 61.[address] Kieran Granados MD Work Phone: [facility] 01-28-2025 10:11-0400 Diastolic blood pressure 86 mm[Hg] Dr. Kieran Granados MD Work Phone: [facility] 01-28-2025 10:11-0400 Respiratory rate 16 /min Dr. Kieran Granados MD Work Phone: [facility] 01-28-2025 10:11-0400 Systolic blood pressure 142 mm[Hg] Dr. Kieran Granados MD Work Phone: [facility] Encounters Encounter Date Encounter Type Care Provider Facility Start: 03-04-2025 ambulatory Kieran Granados Facility:[facility] Start: 02-19-2025 End: 02-19-2025 ambulatory Kieran Granados Facility:[facility] Start: 02-19-2025 End: 02-19-2025 ambulatory Kieran Granados Facility:[facility] Start: 02-19-2025 ambulatory Kieran Granados Facility:[facility] Start: 02-16-2025 End: 02-16-2025 ambulatory Gabriele Jean Facility:[facility] Start: 02-03-2025 ambulatory Kieran Granados Facility:[facility] Start: 02-03-2025 ambulatory Kieran Granados Facility:[facility] Start: 01-28-2025 End: 01-28-[address] Nubia Simmons MD -[facility] Work Phone: Start: 01-28-2025 End: 01-28-[address] Kieran Granados MD Work Phone: -[facility] Start: 01-16-2025 End: 01-16-[address] Kieran Granados MD -[facility] Work Phone: Start: 01-16-2025 End: 01-16-2025 ambulatory Kieran Granados Facility:[facility] Start: 01-01-2025 End: 01-01-[address] Kieran Granados MD Work Phone: -[facility] Start: 01-01-2025 End: 01-01-[address] Kierna Granados MD -[facility] Work Phone: Start: 01-01-2025 End: 01-01-2025 ambulatory Kieran Granados Facility:[facility] Start: 10-31-2024 End: 10-31-[address] Kieran Granados MD Work Phone: -Laboratory [facility] Start: 10-31-2024 End: 10-31-[address] Kieran Granados MD -Laboratory [facility] Start: 10-31-2024 End: 10-31-2024 ambulatory Kieran Granados Facility:[facility] Start: 10-14-2024 Non-patient / Non-visit Dr. Keeley varela MD -[facility] Work Phone: Start: 07-23-2024 Non-patient / Non-visit Dr. Jeanna MACIEL -[facility] Work Phone: Start: 07-23-[address] Kieran Dumont D -Cat Scan [facility] Work Phone: Start: 07-23-2024 ambulatory Darrick Hale Facility:[facility] Start: 03-20-2024 End: 03-20-2024 [facility]ulatory [facility] Facility:[facility] Start: 12-06-2022 End: 12-06-2022 ambulatory [facility] Work Phone: Start: 12-06-2022 End: 12-06-2022 Patient encounter procedure [facility] [place] Work Phone: Start: 11-17-2022 End: 11-17-2022 ambulatory [facility] Work Phone: Start: 11-17-2022 End: 11-17-2022 Patient encounter procedure [facility] Work Phone: Start: 09-29-2022 ambulatory Facility:[facility] Start: 08-12-2021 End: 08-12-2021 Patient encounter procedure [facility] [place] [facility] Procedures Date Procedure Procedure Detail Performing Clinician Start: 01-16-[address] Kieran Granados MD Work Phone: Start: 01-01-2025 Screening mammography Abe Granados MD Work Phone: Start: 10-31-2024 Vitamin D, 25-hydrox y measurement Dr. Kieran Granados MD Work Phone: Comment on above: Vitamin D StatusDefi ciency: <20 ng/mL (50nmol/L)Insufficiency: 20-30 ng/mL (50-75 nmol/L)Sufficiency: 30-100 ng/mL (75-250 nmol/L)Toxicity: >100 ng/mL (>250 nmol/L) Start: 07-23-2024 CT angiography of co ronary arteries Dr. Kieran Granados MD Work Phone: Start: 12-06-2022 End: 12-06-2022 X-ray of both feet Start: 11-17-2022 Urine culture Plan of Treatment Date Care Activity Detail Author Start: 02-03-2025 Non-patient / Non-visit Non-patient / Non-visit -[facility] Start: 02-03-2025 Ultrasonography guided biopsy of breast US Breast Biopsy 1st Lesion [facility] Start: 02-03-2025 US Breast Bx EA Add Lesion US Breast Bx EA Add Lesion [facility] Start: 02-03-2025 Patient encounter procedure Registered Clinical -[facility] Work Phone: Payers Date Payer Category Payer Unknown [id number] 2024 Medicare [id number] [id number] Private Health Insurance [id number] 2024 Self-pay [id number] Unknown [id number] 2.16.8 [id number] Unknown [id number] 2.16.8 [id number] Unknown [id number] 2.16.8 [id number] Unknown [id number] 2.16.8 [id number] Unknown [id number] 2.16.8 [id number] Unknown [id number] 2.16.8 [id number] Unknown [id number] 2.16.8 [id number] Unknown [id number] 2.16.8 [id number] Unknown [id number] 2.16.8 [id number] Unknown [id number] 2.16.8 [id number] Unknown [id number] 2.16.8 [id number] Unknown [id number] 2.16.8 [id number] Unknown [id number] 2.16.8 [id number] Unknown [id number] 2.16.8 [id number] Social History Date Type Detail Facility [facility] Work Phone: Start: 1955 Sex Assigned At Female [facility] Work Phone: Sex Female [facility] Start: 01-28-2025 [facility]finding[facility] Progress note 01-28-2025 Note Date & Type Note Facility 01-28-2025 Progress note [facility] Evaluation note Note Date & Type Note Facility Evaluation note No assessment information availa ble [facility] Work Phone: Evaluation note Note Date & Type Note Facility Evaluation note Diagnosis Onset Date Resolution Abnormal ultrasound of breast acute January 28 9:49am Breast mass, right acute Octobe r 2024 9:49am [facility] Work Phone: Progress note Note Date & Type Note Facility Progress note Note Date/Time January 28, 2025 10:38am [facility] [address] [place] [address] OFFICE VISIT Date of Service: 01/28/25 MR#: [id number] Acct: [id number] Name: MARIANGEL BELL Rep #: [id number] : 1955 Provider: Dr. Lucy Simmons MD Age/Sex: 69/F Location: [facility] Status: Signed Intake Vital Signs 01/28/25 10:11 Height 5 ft 2 in Weight: 136 lb BMI 24.8 BP 142/86 H Blood Pressure Location Rt brachial Position Sitting Respiration 16 Intake Visit Reasons: BIRADS 5 Chief Complaint: birads 5 Tailing Hand Required: No Is patient in pain?: No Allergies No Known Allergies Allergy (Unverified 01/28/25 10:00) Medications ?Medication ?Instructions ?Recorded ?Confirmed ?Type XM plus supplement PO 01/28/25 History calcium acetate 668 mg (169 mg 668 mg PO ONCE 01/28/25 01/28/25 History calcium) tablet cranberry 500 mg capsule 500 mg PO BID 01/28/2501/28 History magnesium 250 mg tablet 250 mg PO QDAY 01/28/2501/14 History Have you fallen in the past year?: No PFSH Medical History (Updated 01/28/25 @ 10:[address] Nubia Simmons MD) Breast mass, right Surgical History (Updated 01/28/25 @ 10:11 by Ania Rodriguez) S/P left knee surgery Family History (Updated 01/28/25 @ 10:11 by Ania Rodriguez) Father Heart disease Brother Heart disease Social History (Updated 01/28/25 @ 10:11 by Ania Rodriguez) Smoking Status: Never smoker alcohol intake: never HPI HPI HPI: 69-year-old female presents due to abnormal mammogram and ultrasound of the right breast. Patient previously had a stereotactic biopsy for fibroadenoma in [address] Naidu. Patient denies any nipple discharge, area has been a little tender after having the mammogram and ultrasound, but also denies any masses on exam. 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 PROCEDURE: BREAST LIMITED RIGHT UNILATERAL 01/16/2025 REASON FOR EXAM: F, Age 69 y/o , ABD MAMM COMPARISON: Mammogram 01/01/2025 on 10/10/2023. TECHNIQUE: Procedure Code: USBRSTLIMIT Modality: US Procedure: BREAST LIMITED UNILATERAL FINDINGS: Follow-up examination performed for the irregular right breast mass seen on examination of 01/01/2025. On the present examination, in the right breast at 10 o'clock 5 cm from the nipple there is an irregular hypoechoic vascular mass with posterior shadowing measuring 1.3 x 1.3 x 1.1 cm. This correlates to the mammographic finding. Follow-up examination performed for the mass in the upper-outer right breast at posterior depth seen on examination of 01/01/2025. On the present examination in the right breast at 10 o'clock 11 cm from the nipple there is a mildly enlarged intramammary lymph node with diffuse cortical thickening measuring 1.0 x 0.8 x 0.6 cm with cortical thickness of 0.3 cm. This correlates to the mammographic finding. The remainder of the right breast was imaged demonstrating no additional suspicious sonographic findings. There is a normal-appearing right axillary lymph node. US/Breast Limited Unilateral IMPRESSION: 1. Irregular right breast mass at 10 o'clock 5 cm from the nipple is highly suggestive of malignancy. Recommend tissue sampling with ultrasound-guided core needle biopsy for further evaluation. 2. Abnormal intramammary lymph node in the right breast at 10 o'clock 11 cm from the nipple is suspicious. Recommend tissue sampling with ultrasound-guided core needle biopsy for further evaluation. BI-RADS 5: HIGHLY SUGGESTIVE OF MALIGNANCY. ROS General General: Yes weight change and fatigue; No appetite, colon cancer, breast cancer or weakness HEENT HEENT: Yes eye injury and eye surgery; No difficulty swallowing, swollen glands or hoarseness Endo Endocrine: No thyroid disease, diabetes mellitus, thyroid cancer, Hair loss, heat intolerance or cold intolerance Skin Skin: No rash or changing moles Breast Breast: Yes right breast lump, abnormal mammogram and abnormal US; No left breast lump, nipple discharge or breast enlargement Musc Musculoskeletal: Yes arthritis; No back problems, rheumatoid arthritis, gout or joint pain Cardio Cardiovascular: Yes murmur; No pacemaker, heart disease, atrial fibrillation, high blood pressure, heart attack, heart stent, palpitations, shortness of breath with exertion or chest pain Psych Psychiatric: No depression, anxiety or hearing voices Resp Respiratory: No shortness of breath, No sleep apnea, No cough, No COPD, No asthma, No emphysema and No wheezing Gastro Gastrointestinal: No abdominal pain, No nausea or vomiting, No diarrhea, No constipation, No blood in stool, No acid reflux, No hemorrhoids, No ulcers, No gallbladder problem and No black,tarry stools Mejia Hematologic: No blood thinners, No blood disorders, No bleeding, No anemia and No blood clots Neuro Neurologic: No numbness, No tingling and No weakness Exam Const General: cooperative, healthy appearing and no acute distress [facility] Head: normal to inspection Chest Other: Breast inspection: Symmetric bilaterally Right breast: Fibroglandular tissue, 2-1/2 cm mass at 10:00 5 cm from the nipple, unable to appreciate the intramammary node on exam, no nipple discharge or pain, no change in overlying skin Left breast: Fibroglandular tissue, no masses on exam, no nipple discharge or pain, no change in overlying skin No axillary or supraclavicular adenopathy bilaterally Resp Effort & Inspection: normal respiratory effort Cardio Rate: regular rate GI Inspection: non-distended Palpation: soft Skin General: no rashes or lesions noted Neuro General: patient oriented x3 Extrem General: no clubbing, cyanosis or edema Psych Affect: normal affect Assessment and Plan Assessment and Plan (1) Breast mass, right: Status: Acute (2) Abnormal ultrasound of breast: Status: Acute Comment: Right breast mass?BI-RADS 5 at 10:00 5 cm from nipple, right intramammary node with thickened cortex at 10:00 11 cm from the nipple Plan Reviewed imaging and report with patient. Did discuss that BI-RADS 5 do have a high chance of malignancy. I have discussed above with the patient. I have recommended ultrasound guided needle core breast biopsy and intramammary node biopsy and ultrasound as unable to see the internal mammary lymph node well with our office ultrasound. I have described the procedure to the patient. A marker clip will be placed to identifythe location. Patient has been counseled to the risks/benefits of the procedure.I have explained the risks of the surgery, including but not limited to: infection, bleeding, injury to any blood vessels/nerves, scar tissue, missing the lesion, further surgery, etc. - the patient understands and agrees to proceed. I have answered all of the patient's questions to her satisfaction and she has no further questions. Nubia Simmons M.D. Pager: [phone] [facility] [address] [place] [address], [address] [place] [address] Office: [phone] Coding Level of Care Code Off vis,new,level 3 Diagnoses Breast mass, right N63.10 Abnormal ultrasound of breast R92.8 Clinical Quality Measures Falls Risk Screening/Assistive Devices Have you fallen in the past year?: No 01/28/25 1044 <Electronically signed by Nubia Angulo am, MD> Date _ Nubia Simmons MD Cosigner Signature: Date (if applicable) CC: Dr. Kieran Granados MD ~ [facility] Work Phone: Reason for referral (narrative) Note Date & Type Note Facility Reason for referral (narrative) No reason for referral information available [facility] Work Phone: Summary Purpose Family History No Family History Records Found Relationship Condition Age at Onset Recorded Date/T anabela father Cardiac disease Unknown brother Cardiac disease Unknown Advance Directives No Advanced Directives Records FoundNo Advanced Directives Records FoundNo Advanced Directives Records Found Chief Complaint and Reason for Visit Chief Complaint Admit Date HYPERLIPIDEMIA LDL GOAL < 130 / OSTEOPOR OSIS July 23, 2024 10:54am CALCIUM SCORING July 23, 2024 10:5 7am Chief Complaint Admit Date SCREENING January 01, 2025 8:13am Chief Complaint Admit Date SCREENING January 01, 2025 8:13am Other abnormal and inconclusive findings on diagno January 16, 2025 8:56am BIRADS 5 January 28, 2025 9 :49am LESION February 03, 2025 8 :49am LESION February 03, 2025 9 :59am Reason for Visit Admit Date Abnormal ultrasound of breast January 282024 9:49am Breast mass, right January 28, 2025 9 :49am Additional Source Comments INFORMATION SOURCE (unrecogn ized section and content) DATE CREATED AUTHOR 12/16/2019 [facility] ([place]) DATE CREATED AUTHOR AUTHOR'S ORGANIZ ATION 09/30/2022 [facility] DATE CREATED AUTHOR AUTHOR'S ORGANIZ ATION 02/25/2025 [facility] Goals (unrecognized section and content) Goals may [...] MD Attending Provider, Referring Pro vider Active Team Status: Active Member Role/Relationship Status Dates Dr. Kieran Granados MD Primary Care Provider Active Team Status: Active Member Role/Relationship Status Dates Dr. Kieran Granados MD Primary Care Provider Active Start: July 23, 2024 Dr. Kieran Granados MD Attending Provider Active St art: July 23, 2024 Kieran DANGELO MD Referring Provider Active Sta rt: July 23, 2024 Team Status: Active Member Role/Relationship Status Dates Dr. Kieran Granados MD Primary Care Provider Active Start: July 23, 2024 Dr. Darrick Hale MD Attending Provider Active S tart: July 23, 2024 Dr. Kieran Granados MD Tima Referring Provider Active Start: July 23, 2024 Team Status: Inactive Member Role/Relationship Status Dates Dr. Kieran Granados MD Primary Care Provider Active Start: October 14, 2024 Dr. Keeley Graff MD Attending Provider Active Start: October 14, 2024 Team Status: Inactive Member Role/Relationship Status Dates Dr. Kieran Granados MD Primary Care Provider Active Start: October 31, 2024 End: October 31, 2024 Dr. Kieran Granados MD Attending Provider Active St art: October 31, 2024 End: October 31, 2024 Dr. Kieran Granados MD Referring Provider Active St art: October 31, 2024 End: October 31, 2024 Team Status: Active Member Role/Relationship Status Dates Dr. Kieran Granados MD Primary care physician Active Team Status: Inactive Member Role/Relationship Status Dates Dr. Kieran Granados MD Primary care physician Active Start: October 14, 2024 Dr. Keeley Graff MD Attending physician Active Start: October 14, 2024 Team Status: Inactive Member Role/Relationship Status Dates Dr. Kieran Granados MD Primary care physician Active Start: October 31, 2024 End: October 31, 2024 Dr. Kieran Granados MD Attending physician Active S tart: October 31, 2024 End: October 31, 2024 Dr. Kieran Granados MD Referring Provider Active St art: October 31, 2024 End: October 31, 2024 Team Status: Inactive Member Role/Relationship Status Dates Dr. Kieran Granados MD Primary care physician Active Start: January 01, 2025 End: January 01, 2025 Dr. Kieran Granados MD Attending physician Active S tart: January 01, 2025 End: January 01, 2025 Dr. Kieran Granados MD Referring Provider Active St art: January 01, 2025 End: January 01, 2025 Team Status: Inactive Member Role/Relationship Status Dates Dr. Kieran Granados MD Primary care physician Active Start: January 16, 2025 End: January 16, 2025 Dr. Kieran Granados MD Attending physician Active S tart: January 16, 2025 End: January 16, 2025 Dr. Kieran Granados MD Referring Provider Active St art: January 16, 2025 End: January 16, 2025 Team Status: Inactive Member Role/Relationship Status Dates Dr. Kieran Granados MD Primary care physician Active Start: January 28, 2025 End: January 28, 2025 Dr. Kieran Granados MD Referring Provider Active St art: January 28, 2025 End: January 28, 2025 Dr. Nubia Simmons MD Attending physician Active Start: January 28, 2025 End: January 28, 2025 Team Status: Active Member Role/Relationship Status Dates Dr. Kieran Granados MD Primary care physician Active Start: February 03, 2025 Dr. Nubia Simmons MD Attending physician Active Start: February 03, 2025 Dr. Nubia Simmons MD Referring Provider Active Start: February 03, 2025 Team Status: Active Member Role/Relationship Status Dates Dr. Kieran Granados MD Primary care physician Active Start: February 03, 2025 Dr. Nubia Simmons MD Attending physician Active Start: February 03, 2025 Dr. Nubia Simmons MD Referring Provider Active Start: February 03, 2025 Dr. Nubia Simmons MD Nurse Practitioner Active Start: February 03, 2025 FOR RECORDS PERTAINING TO PATIENTS WHO ARE [...] BE BASED ON THE PRIMARY CLINICAL RECORDS. [facility] [employer] [facility]. provides no warranty or guarantee of the accuracy or completeness of information in this document.
[2025-03-04] MEDS: Lactated Ringers 1,000 ML 15 ML IV (08:08)
--- NOTE | 2025-03-04 08:16 | NM_ITS ---
PROCEDURE: LYMPH NODE INJECTION ONLY 03/04/2025 REASON FOR EXAM: RIGHT BREAST CANCER TECHNIQUE: Procedure Code: [id number] Modality: NM Procedure: LYMPH NODE INJECTION ONLY; for sentinel node imaging Subdermal injection of 580 uCi technetium 99 M Lymphoseek in the subdermal region of the right periareolar area for sentinel node imaging, specifically 1 cm above the right nipple. NM/Lymph Node Injection Only IMPRESSION: Subdermal injection of 580 uCi technetium 99 M Lymphoseek in the subdermal alysia on of the right periareolar area for sentinel node imaging, 1 cm above the right nipple. Reading Location: [place] [id number]
--- NOTE | 2025-03-04 08:48 | PRE.ANES_ITS ---
ASA Classification* ASA Classification ASA Classification: 2 Assessment & Plan Anesthesia* Anesthesia Assessment Anesthesia Assessment: Discussed sedation and/or anesthesia options, risks, benefits, and alternatives with patient/parents/legal guardian/POA. Questions invited. The patient/parents/legal guardian/POA seems to understand and agrees to proceed with anesthesia plan. Reviewed the physical assessment, medical history, allergy history and patient home medications list prior to surgery/procedure/anesthetic and documented any changes. Performed airway and anesthesia risk assessments. Anesthesia Type Anesthesia Type: General History Source History Obtained from:: Patient and Chart Anesthesia Focused Assessment* Temperature: 97.8 F Pulse Rate: 70 Blood Pressure: 142/79 Respiratory Rate: 16 Pulse Ox: 100 Oxygen Delivery Method: Room Air Airway Assessment Mouth opens: >3 cm Mallampati Score: IV Teeth Condition: Caps/Crowns (Patient has several caps. They are all tight.) Neck Range of motion (ROM): Full ROM Labs Anesthesia Preop lab: CBC WBC, (4.4-11.0) 4.5 K/mm3 10/31/24, : RBC, (4.2-5.4) 4.38 M/mm3 10/31/24, : Hgb, (12.0-15.0) 12.9 g/dL 10/31/24, : Hct, (37-47) 39.2 % 10/31/24, : Plt Count, (150-450) 346 K/mm3 10/31/24, 11:23 CHEMISTRY Potassium, (3.3-5.1) 4.0 mmol/L 10/31/24, : Sodium, (133-145) 139 mmol/L 10/31/24, 11:23 BUN, (4-19) 9 mg/dL 10/31/24, : Creatinine, (0.70-1.20) 0.63 mg/dL L 10/31/24, Glucose, (70-99) 90 mg/dL 10/31/24, : TSH, (0.358-3.740) 1.010 uIU/mL 03/20/24, 10:06 COAG Pre-Assessment Diagnosis/Proposed Procedure Planned Operative Procedure(s): (R) U/S guided wire loc Breast, Lumpectomy, [place] Node, blue dye & radiotracer, poss Ax Dis Anesthesia History 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 When Was Last Pacemaker Check QUESTION #4 FULL TEXT: You/Your Family Experience fever (hyperthermia) with Anesthesia Last Oral Intake Last Oral intake: Last Oral Intake NPO since 21:00 03/04/25 07:50 Meds taken in AM with sips of No 03/04/25 07:50 water? Meds patient instructed to take am of surgery PONV PONV - brine tank operator: PONV - brine tank operator Female Yes 03/03/25 13:16 HX of Motion Sickness No 03/03/25 13:16 HX of N/V After Surgery No 03/03/25 13:16 Non-Smoker Yes 03/03/25 13:16 Duration of Surgery greater Yes 03/03/25 13:16 than 60 minutes Number of Risk Factors 3 03/03/25 13:16 PONV Score Moderate Risk 03/03/25 13:16 Height & Weight Height & Weight: Anesthesia: Height & Weight Height 5 ft 2 in 03/04/25 07:50 Weight: 60 kg 03/04/25 07:50 Body Mass Index (BMI) 24.2 03/04/25 07:50 Respiratory Assessment Respiratory Assessment - brine tank operator: Respiratory Tract Infection Hx - brine tank operator Hx Respiratory Tract Infection No 03/03/25 13:16 STOP Sleep Apnea STOP Sleep Apnea - brine tank operator: STOP Sleep Apnea - brine tank operator Hx Hypertension No 03/03/25 13:16 Hx Sleep Apnea No 03/03/25 13:16 CPAP BIPAP Do you snore loudly (louder No 03/03/25 13:16 than talking or can be heard Do you often feel tired/ No 03/03/25 13:16 fatigued/ sleepy during daytime? Has anyone observed you stop No 03/03/25 13:16 breathing during sleep? STOP Results Negative 03/03/25 13:16 QUESTION #5 FULL TEXT : Do you snore loudly (louder than talking or can be heard through closed doors)? 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 Specify any problems Hx of Preganancy in last 3 N/A 03/03/25 13:16 Months Nurse Filling Out Transfusion NBUCHER 03/03/25 13:16 & Questions: Date: 03/03/25 03/03/25 13:16 Time: 13:17 03/03/25 13:16 Patient unable to answer at this time (ie. confused, unrespo /Reproduction History /Reproductive History - brine tank operator: /Reproductive Hx- brine tank operator Hx Now No 03/03/25 13:16 Gestational Age (in weeks): EDC: Hx Hx Para Hx Section SAB No 03/03/25 13:16 Does the father of the baby or his family experience fever w Father of the baby Malignant Hypertension history comment Active Medications Active Medications: Current Medications Generic Name Dose Route Start Last Admin Trade Name Freq PRN Reason Stop Dose Admin Lactated Ringer's 1,000 mls @ 15 mls/hr 03/04/25 07:45 03/04/25 08:08 IV 15 mls/hr .Q48H NEENA Administration PFSH Medical History Wears glasses Breast cancer Cancer Arthritis Non-smoker Breast mass, right Home Medications ?Medication ?Instructions ?Recorded ?Last Taken ?Type XM plus supplement 1 tab PO DAILY 01/28/25 Unkn own History calcium acetate 668 mg (169 mg 668 mg PO ONCE 01/28/25 Unknown History calcium) tablet cranberry 500 mg capsule 500 mg PO BID 01/28/25 Unkno wn History magnesium 250 mg tablet 250 mg PO QDAY 01/28/25 Unkn own History latanoprost 0.005 % eye drops 1 drp LEFT EYE QHS 03/03 Unknown History Allergy/AdvReac Type Severity Reaction Status Date / Time No Known Allergies Allergy Verified 03/04/25 07:49 Family History Father Heart disease Brother Heart disease Surgical History S/P left knee surgery Social History Smoking Status: Never smoker alcohol intake: never Review of Systems (Anesthesia) ROS Narrative System reviewed and no additional complaints, except as documented.
--- NOTE | 2025-03-04 09:26 | PCM.HP.BLA ---
History and Physical Date of Admission: 03/04/25 Intake Vital Signs 02/17/2508:08 02/19/2513:10 Height 5 ft 2 in 5 ft 2 in Weight: 133 lb 6 oz 134 lb 8 oz BMI 24.3 24.5 BP 137/78 H 124/80 H Blood Pressure Location Rt brachial Rt brachial Position Sitting Sitting Respiration 18 16 Pulse 65 79 Pulse Source Monitor Monitor Temp 97.6 F L 97.8 F Temp Source Temporal Pulse Oximetry (%) 99 97 Oxygen Delivery Method room air room air Intake Visit Reasons: DISCUSS BREAST SX Chief Complaint: discuss breast sx Accompanied by: spouse and friend Is patient in pain?: No Allergies No Known Allergies Allergy (Unverified 02/19/25 13:09) Medications ?Medication ?Instructions ?Recorded ?Confirmed ?Type XM plus supplement PO 01/28/25 02/19/25 History calcium acetate 668 mg (169 mg 668 mg PO ONCE 01/28/25 02/19/25 History calcium) tablet cranberry 500 mg capsule 500 mg PO BID 01/28/25 02/19/25 History magnesium 250 mg tablet 250 mg PO QDAY 01/28/25 02/19/25 History Have you fallen in the past year?: No PFSH Medical History Breast mass, right Surgical History S/P left knee surgery Family History Father Heart disease Brother Heart disease Social History Smoking Status: Never smoker alcohol intake: never HPI HPI HPI: Patient saw radiation oncology and would like to schedule partial mastectomy with sentinel lymph node biopsy. ROS General General: Yes weight change and fatigue; No appetite, colon cancer, breast cancer or weakness HEENT HEENT: Yes eye injury and eye surgery; No difficulty swallowing, swollen glands or hoarseness Endo Endocrine: No thyroid disease, diabetes mellitus, thyroid cancer, Hair loss, heat intolerance or cold intolerance Skin Skin: No rash or changing moles Breast Breast: Yes right breast lump, abnormal mammogram and abnormal US; No left breast lump, nipple discharge or breast enlargement Musc Musculoskeletal: Yes arthritis; No back problems, rheumatoid arthritis, gout or joint pain Cardio Cardiovascular: Yes murmur; No pacemaker, heart disease, atrial fibrillation, high blood pressure, heart attack, heart stent, palpitations, shortness of breath with exertion or chest pain Psych Psychiatric: No depression, anxiety or hearing voices Resp Respiratory: No shortness of breath, No sleep apnea, No cough, No COPD, No asthma, No emphysema and No wheezing Gastro Gastrointestinal: No abdominal pain, No nausea or vomiting, No diarrhea, No constipation, No blood in stool, No acid reflux, No hemorrhoids, No ulcers, No gallbladder problem and No black,tarry stools Mejia Hematologic: No blood thinners, No blood disorders, No bleeding, No anemia and No blood clots Neuro Neurologic: No numbness, No tingling and No weakness Exam Const General: cooperative Orientation: alert and oriented x3 HENMT Head: normal to inspection Neck Neck: normal visual inspection and full ROM Chest Chest palpation & inspection: normal inspection of the chest Resp Effort & Inspection: normal respiratory effort Auscultation: clear to auscultation bilaterally Cardio Rate: regular rate Rhythm: regular rhythm GI Inspection: non-distended Palpation: soft and nontender Skin General: no rashes or lesions noted Neuro General: patient alert and patient oriented x3 Extrem General: full ROM Psych Appearance: grossly normal Mental Status: mental status grossly normal Assessment and Plan Assessment and Plan (1) Breast cancer, right breast: Status: Acute Qualifiers: Breast location: upper outer quadrant of breast Estrogen receptor status: positive Patient sex: female Qualified Code(s): C50.411 - Malignant neoplasm of upper-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 I had seen her earlier in the week and discussed partial mastectomy versus mastectomy with her. After seeing a radiation oncologist she decided to proceed with partial mastectomy with sentinel lymph node biopsy. I once again discussed the procedure in detail as well as the risks including but not limited to bleeding, infection, nerve injury, lymphedema, need for further margins or need for axillary dissection. Patient understands the risks and is willing to proceed. Gabriele Jean MD Pager: [facility] [address] [place] [address], [address] [place] [address] Office: I have examined the patient and the H&P has been reviewed. There are no clinical changes since date of exam.
--- NOTE | 2025-03-04 09:30 | BREAST_PTH ---
PATIENT: MANDY ADHIKARI LOC: [facility] U#:[id number] AGE/SX: 69/F ROOM: RE03/04/[address]: Dr. Gabriele Jean MD : 1955 BED: DIS: 03/04/2025 SPEC #: [id number] RECD: 03/04/25 10:20 STATUS: PAUL GABRIEL #: [id number] MARYANN: 03/04/25 09:[address]: Gabriele Jean DEPT: SURGICAL PATHOLOGY RECD BY: Vick Ortiz ENTERED: 03/04/25 11:01 SP TYPE: BREAST OTHR DR: Dr. Kieran Granados MD Tissues: A - Lymph node, NOS B - Right breast, NOS Procedures: Frozen Section (charge) Surgery Specimen Level IV HEADER OPERATION: Ultrasound guided wire localization, breast, lumpectomy, sentinel lymph node, blue dye PRE-OP DIAGNOSIS: Breast cancer, right breast TISSUE SUBMITTED: A- Right sentinel lymph node, B- Right breast mass FROZEN SECTION DIAGNOSIS A. Breast, right axillary lymph node, excision: Negative for macrometastasis. TD. 03/04/2025 MICROSCOPIC DIAGNOSIS A. Right axillary sentinel lymph node, sentinel lymphadenectomy: * One benign lymph node, confirmed by immunohistochemical stains for pancytokeratins (negative) B. Right breast, lumpectomy: * Infiltrating ductal adenocarcinoma, grade II (See COMMENT for SYNOPTIC REPORT) COMMENT SYNOPTIC REPORT FOR INVASIVE BREAST CANCER Specimen: partial resection (lumpectomy) Laterality: right Focality: unifocal Tumor size (cm): 1.8 x 1.5 x 1.4 cm Histologic type: infiltrating ductal adenocarcinoma Histologic grade: II Tubule score (1-3): 3 Nuclear score (1-3): 2 Mitotic score (1-3): 1 Skin, nipple epidermis, skeletal muscle: not applicable Lymphovascular invasion: not identified Margins of main specimen: negative Distance to closest margin of main specimen (mm): 6 mm Designation of closest margin of main specimen: orange inked, lateral Designation of other margins of main specimen </=1 mm: none Re-resection margin status: not applicable DCIS (P=present: present Nuclear grade: 2 Comedo necrosis: not identified Extensive intraductal component: not identified Margins of main specimen: negative Distance to closest margin of main specimen (mm): 6 mm Designation of closest margin of main specimen: orange inked, lateral Designation of other margins of main specimen </=2 mm: none Re-resection margin status: not applicable Regional lymph nodes: Total number of lymph nodes (sentinel and non-sentinel): 1 Number of sentinel lymph nodes: 1 Number of lymph nodes with macrometastases: 0 Number of lymph nodes with micrometastases: 0 Number of lymph nodes with isolated tumor cells: 0 Size of largest regino metastasis (mm): no applicable Size of extranodal extension: not identified Estrogen receptor: positive Progesterone receptor: positive HER2 IHC: negative Specimen in which ER/NJ/HER2 performed: [id number] pTNM: pT1c pN0 (-s,-i) The above synoptic report complies, in slightly modified form, with the guidelines of the [employer] and the Association of Directors of Anatomic and Surgical Pathology for the reporting of cancer specimens MICROSCOPIC DESCRIPTION Slides are reviewed. All matched controls reacted appropriately. These tests were developed and their performance characteristics determined by [facility]. They may not have been cleared or approved by the U.S. Food and Drug Administration. The FDA has determined that such clearance or approval is not necessary. The above immunohistochemical markers are viewed by the Pathologist. GROSS DESCRIPTION A. Received fresh for frozen section diagnosis labeled patient's name and date of . Designated as R axillary sentinel lymph node is a 3.8 x 2.8 x 0.8 cm lymph node with attached fat. The lymph node is serially sectioned and entirely submitted for frozen section diagnosis and subsequently placed in cassettes A1-A3 for permanent sections; the remaining fat is submitted in cassette A4 for permanent sections. B. A. Received fresh labeled with the patient's name and date of . Designated as right breast mass is a 6.3 x 5.0 x 3.6 cm lumpectomy with an exposed localization wire on the anterior aspect. There is a short suture designated as superior and a long suture designated as lateral. There is blue surgical dye along the medial aspect. Skin is not present. The specimen is inked as follows: Superior: RedInferior: BlueMedial: YellowLateral: OrangeAnterior: GreenPosterior: Black The specimen is serially sectioned from anterior to posterior (into 8 slices) revealing a 1.8 x 1.5 x 1.4 cm yellow-white, focally nodular, indurated mass with ill-defined, irregular borders and surrounding, dense fibrosis; the mass spans slices #5-#7. A ribbon biopsy clip is identified within the mass in slice #6. The mass is located the following distances from each margin: Anterior: 2.1 cmInferior: 0.3 cmMedial: 1.1 cmLateral: 0.1 cmPosterior: 0.9 cmSuperior: 0.4 cm Review of postoperative imaging confirms the presence of a localization wire and biopsy clip. Tire Assembler sections are submitted, sequentially from slice #1 to slice # 8, as follows: B1: Slice #1, anterior, perpendicular (green)B2: Slice #4, fibrosis to lateral (orange)B3-B4: Slice #5, mass to superior/lateral/inferior (red/orange/)B5: Slice #5, mass to medial, with blue dye discolorationB6: Slice #6, mass with biopsy site to superior/lateralB7: Slice #6 ,mass to lateral/inferior (orange/blue)B8: Slice #7 mass to lateral/superior (orange/red)B9: Slice #7 fibrosis to inferior/superior/medial (blue/red/yellow)B10: Slice #8, posterior, perpendicular (black) Cold ischemic time: 33 minutesFormalin fixation time: 32 hours, 30 minutes ME 03/04/2025 CPT:[id number]
[2025-03-04] MEDS: Cefazolin 1 GM/5 ML Vial 2 GM IV (09:40)
[2025-03-04] MEDS: Lidocaine 1% (5 ml sdv) 5 ML Vial IV (09:43)
[2025-03-04] MEDS: fentaNYL 100 MCG/2 ML Ampul IV (10:19)
--- NOTE | 2025-03-04 10:32 | BI_ITS ---
EXAM: BREAST BIOPSY SPECIMEN 03/04/2025 CLINICAL HISTORY: F, Age 69 y/o, excisional breast biopsy. TECHNIQUE: Procedure Code: BIB Modality: MG Procedure: BREAST BIOPSY SPECIMEN COMPARISON: Prior exam(s) dated February 03, 2025. FINDINGS: TISSUE DENSITY: The breasts are heterogeneously dense, which may obscure small masses The specimen contains the tissue clip marker as well as the needle localization wire. BI/Breast Biopsy Specimen IMPRESSION: OVERALL FINAL ASSESSMENT: BIRADS 6: Known Biopsy-Proven Malignancy. RECOMMENDATION: Routine annual follow-up in 1 Year Additional Recommendation none A letter with findings and recommendations will be mailed to the patient. Reading Location: [id number]
--- NOTE | 2025-03-04 10:35 | PCM.OPRPT ---
Operative Report (Standard) Operative Information Date of Procedure: 03/04/25 Pre-Operative Diagnosis: Right breast cancer upper outer quadrant Post-Operative Diagnosis: Same Surgery/Procedure Performed: 1. Ultrasound-guided wire localization of the right breast 2. Right sentinel lymph node biopsy 3. 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 Ground Surveillance Systems Operator: George Esposito Tasks completed by first aid attendant: Opening & closing and Retracting Type of Anesthesia: General/Regional RN Documented Start/Stop Times: Operation Date: 03/04/25 09:30 Case Time Into Pre-Op 03/04/25 07:37 Out of Pre-Op 03/04/25 09:33 Anesthesia Start 03/04/25 09:38 Into Room 03/04/25 09:38 Procedure Start 03/04/25 10:00 Procedure Start Time: 10:00 Procedure Stop Time: 10:45 Select all DRAINS/GRAFTS/IMPLANTS that apply: None Estimated Blood Loss: 40 Specimen collected: Yes Description of specimen(s) removed: Right axillary sentinel lymph node 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 Description of surgery: Patient was brought to the operating room and general anesthesia was induced. The right breast was prepped and then injected under the nipple with 5 cc of Lymphazurin. 10 cc of saline was also injected and a massage was performed. Next ultrasound was used to localize the mass in the upper outer quadrant. Using a Kopan's needle and ultrasound the wire was placed into the breast mass and deployed. Next the breast was prepped and draped in usual sterile fashion. An incision was made in the right axilla and deepened to the axillary tissue. A positive radioactive lymph node was identified. It was removed using sharp and blunt dissection. The 10-second count indicated there was nothing left in the axilla. The axilla was further inspected there were no further blue nodes or palpable lymph nodes in the axilla. Next the axilla was packed with a Ray-Luis. Next attention was paid to the breast. A curvilinear incision was marked in the lateral portion of the breast and incision was made. Flaps were raised using electrocautery. The mass was dissected free circumferentially using electrocautery dissection. Hemostasis was obtained using electrocautery as well. The mass was marked and then sent for mammography which showed that the mass and the clip were included in the specimen as well as the entire wire. The cavity was irrigated copiously and suctioned dry and hemostasis was once again obtained using electrocautery. The skin incisions were closed with interrupted 3-0 Vicryl sutures and running 4-0 Monocryl sutures. Dermabond glue was applied. The lymph node came back as negative for macrometastasis and the mass came back with negative margins. Patient was awoken and taken to PACU in stable condition and tolerated the procedure well. Surgical Findings: Synoptic Portion: Element Response Options Operation performed with curative intent. Yes Tracer(s) used to identify sentinel nodes in the upfront surgery (non-neoadjuvant) setting (select all that apply). Blue dye and radiotracer Tracer(s) used to identify sentinel nodes in the neoadjuvant setting (select all that apply). N/A All nodes (colored or non-colored) present at the end of a dye-filled lymphatic channel were removed. Yes All significantly radioactive nodes were removed. Yes All palpably suspicious nodes were removed. Yes Biopsy-proven positive nodes marked with clips prior to chemotherapy were identified and removed. N/A Complications Complications: No Admit VTE Documentation VTE Mechan Device Prophylaxis: SCD's
--- NOTE | 2025-03-04 10:57 | DCINST_ITS ---
Discharge Instructions Diet Discharge Diet: Light diet - advance as tolerated Activity Discharge Activity: May Not Drive (for 2-3 days or while taking narcotic pain medications.) May shower in (days): 1 Lifting Restrictions: 15 pounds for 1 week Additional Activity Instructions:: Alternate ibuprofen and Tylenol for pain control, oxycodone for breakthrough pain Dressing / Incision Call your doctor if your incision/area has: Continuous Slow Oozing, Sudden Increased Bleeding, Increased Pain/ Swelling, Increased Redness, Foul Smelling Discharge and Swelling at the incision site Call your doctor if you observe: Fever of 101 or Higher Suture Line Care: Avoid Pulling/Pushing and Avoid Pinching/Bending Cleanse incision/area with: Soap & Water Additional Dressing/Incision Instructions:: Remove bulky dressing tomorrow. Follow Up Care Please Follow Up With: Gabriele Jean MD When: Please call to schedule 2 week follow up appointment. [phone] Test Results: Test results from this visit will be discussed in further detail at your follow- up appointment, if applicable. Discharge Plan Admission Attending Provider: Gabriele Jean Primary Care Provider: Kieran Granados Instructions Print Language: Latvian Discharge Orders/Prescriptions Prescriptions: New oxycodone 5 mg Tablet 5 - 10 mg PO Q4H PRN PRN (Reason: Pain Score 4-10) 5 Days Qty: 20 0RF No Action calcium acetate 668 mg (169 mg calcium) tablet 668 mg PO ONCE magnesium 250 mg tablet 250 mg PO QDAY cranberry 500 mg capsule 500 mg PO BID Rx Instructions: administer with meals XM plus supplement 1 tab PO DAILY Rx Instructions: Daily latanoprost 0.005 % drops 1 drp LEFT EYE QHS Referrals / Follow Up: Kieran Granados MD [Primary Care Provider, Family Practice] Disposition Disposition (needs filled in before D/C Order can be placed): Home, Self Care
--- NOTE | 2025-03-04 11:23 | PCM.POST.ANE ---
Anesthesia: Postop Eval I Current Vital Signs Temperature: 97.8 F Pulse Rate: 70 Blood Pressure: 127/81 Respiratory Rate: 16 Pulse Ox: 95 Oxygen Delivery Method: Room Air Assessment Airway patent: Yes Spontaneous unlabored respirations: Yes Mental status: Awake and Calm nausea: No Vomiting: No Anesthesia Complication: No Fluid Hydration Crystalloid volume administer (ml): 600 Total IV fluid infused: 600 Progress Note Anesthesia document: Postop Eval 1 completed: Yes
--- NOTE | 2025-03-04 16:42 | POSTOPAN2_ITS ---
Anesthesia Postop Eval I Sum Postop Eval Completion status Anesthesia document: Postop Eval 1 completed: Yes Anesthesia Postop Eval I Summary Anesthesia Postop Eval I Summary: Anesthesia Postop Eval I: Assessment Summary Airway patent Yes 03/04/25 11:23 [email or web address] [email or web address] Spontaneous unlabored Yes 03/04/25 11:23 [email or web address] [email or web address] respirations Mental status Awake,Calm 03/04/25 11:23 [email or web address] nausea No 03/04/25 11:23 COCONUT [email or web address] Vomiting No 03/04/25 11:23 [email or web address] [email or web address] Anesthesia Postop Eval I: Fluid Summary Crystalloid volume administer 600 03/04/25 11:23 [email or web address] [email or web address] (ml) Colloids volume administered ( ml) Blood Product volume administered (ml) Total IV fluid infused 600 03/04/25 11:23 [email or web address] [email or web address] Anesthesia Postop Eval I: Summary Notes Anesthesia Complication No 03/04/25 11:23 [email or web address] Anesthesia Complication Comment: Post-operative progress note Anesthesia: Postop Eval II Evaluation Mental status: Awake and Calm Pain Level: 1 nausea: No Vomiting: No
--- NOTE | 2025-03-04 16:42 | PCM.POSTANE2 ---
Anesthesia Postop Eval I Sum Postop Eval Completion status Anesthesia document: Postop Eval 1 completed: Yes Anesthesia Postop Eval I Summary Anesthesia Postop Eval I Summary: Anesthesia Postop Eval I: Assessment Summary Airway patent Yes 03/04/25 11:23 SUBSTATION OPERATOR CONVERSION.[email or web address] Spontaneous unlabored Yes 03/04/25 11:23 SUBSTATION OPERATOR CONVERSION.GDOTT respirations Mental status Awake,Calm 03/04/25 11:23 SUBSTATION OPERATOR CONVERSION.GDOTT nausea No 03/04/25 11:23 SUBSTATION OPERATOR CONVERSION.GDOTT Vomiting No 03/04/25 11:23 SUBSTATION OPERATOR CONVERSION.[email or web address] Anesthesia Postop Eval I: Fluid Summary Crystalloid volume administer 600 03/04/25 11:23 SUBSTATION OPERATOR CONVERSION.GDOTT (ml) Colloids volume administered ( ml) Blood Product volume administered (ml) Total IV fluid infused 600 03/04/25 11:23 SUBSTATION OPERATOR CONVERSION.GDOTT Anesthesia Postop Eval I: Summary Notes Anesthesia Complication No 03/04/25 11:23 SUBSTATION OPERATOR CONVERSION.[email or web address] Anesthesia Complication Comment: Post-operative progress note Anesthesia: Postop Eval II Evaluation Mental status: Awake and Calm Pain Level: 1 nausea: No Vomiting: No
== END 2025-03-04 15:25 | disposition home or self-care (01) ==
LOC: SDC 07:32 → AC 07:33
PROVIDERS: PCP Family Medicine; Referring Provider Surgery; Visit Provider Surgery
PROC: 0HBV0ZZ Excision of Bilateral Breast, Open Approach (ICD-10-PCS; CPT 19302; principal; 2025-03-04 09:15)
DX: C50.411 Malignant neoplasm of upper-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 (principal); Z17.0 Estrogen receptor positive status [ER+]
CPT/HCPCS: 19301; 38525; 19083; 00400; 38792; 76098; 88305; 88331; A4648; A9520; J2405; Q9968